=== PATIENT | male | born 1945 | race Caucasian/White ===

== ENCOUNTER → 2016-12-20 | Outpatient (CLI) | payer BC ==
[~2016-12-20] MED LIST: ATOR-24 PO; BENZ1CAP90 PO; DILT120C68 PO; ENAL10TA88 PO; FEBU40TA PO; FURO-85 PO; IPRA1AER2 INH; MOME100A INH; NSNN50 NAE; OMEP40CA PO; PSEU60TA80 PO; PSYL55.43 PO; VITAMIN D PO
[2016-12-20 12:11] LABS: BASO % 0.7 %; BASO ABS # 0.06 K/uL (0-0.2); COMPLETE YES; EOS % 0.5 %; HEMATOCRIT 52.6 % (42-52); IG% 0.2 %; LYMPH % 25.6 %; LYMPH ABS # 2.25 K/uL (1.2-3.4); MEAN CELL VOLUME 85.7 fL (80-100); MEAN CORPUSCULAR HEMOGLOBIN 27.9 pg (25-34); MEAN CORPUSCULAR HGB CONC 32.5 g/dl (32-36); MEAN PLATELET VOLUME 10.1 fL (7.4-10.4); MONO % 8.4 %; NEUT % 64.6 %; PLATELET COUNT 195 K/uL (130-400); RED BLOOD COUNT 6.14 M/uL (4.7-6.1); WHITE BLOOD COUNT 8.79 K/uL (4.8-10.8)
[2016-12-20 13:16] LABS: ESTIMATED AVERAGE GLUCOSE 134 mg/dl; HA1C FLAG Normal (Normal)
[2016-12-20 13:31] LABS: ALT/SGPT 16 U/L (12-78); AST/SGOT 16 U/L (15-37); BLOOD UREA NITROGEN 13 mg/dl (7-18); CALCIUM 8.8 mg/dl (8.5-10.1); CARBON DIOXIDE 34 mmol/L (21-32); CHLORIDE 94 mmol/L (98-107); CREATININE 0.97 mg/dl (0.60-1.40); GLUCOSE 100 mg/dl (70-99); POTASSIUM 4.4 mmol/L (3.5-5.1); SODIUM 132 mmol/L (136-145)
[2016-12-20 13:36] LABS: ALB/GLOB RATIO 0.8 (0.9-2); ALKALINE PHOSPHATASE 135 U/L (45-117); CHOLESTEROL 165 mg/dl (0-200); CHOLESTEROL/HDL RATIO 2.7; HDL CHOLESTEROL 62 mg/dl; LDL CHOLESTEROL CALCULATED 70 mg/dl; TRIGLYCERIDES 163 mg/dl (0-150); VERY LOW DENSITY LIPOPROT CALC 33 mg/dl
--- NOTE | 2016-12-27 13:20 | CODING QUERY MEDICAL NECESSITY ---
SUPPORTING DIAGNOSIS NEEDED A supporting diagnosis is required for the test/procedure performed on this patient in order for us to be reimbursed by the patient's insurance. Please provide a supporting diagnosis for the following test/procedure listed below next to the test name along with your signature. *If there is no additional diagnosis for this patient that would support the following test/procedure please document that below next to the test/procedure. Test(s)/Procedure(s) that require a supporting diagnosis: DOS 12/20 * PSA DIAGNOSIS: Provider Signature: Date: Thank you Janeen Rubin Health Information Management Once completed, please kindly fax back to [phone] For questions please call [phone]
== END | disposition home or self-care (01) ==
LOC: C.LABPVFM 10:22
PROVIDERS: ATTEND Internal Medicine
DX: Z00.00 Encounter for general adult medical examination without abnormal findings (principal); E78.5 Hyperlipidemia, unspecified; I10 Essential (primary) hypertension; R73.01 Impaired fasting glucose; Z12.5 Encounter for screening for malignant neoplasm of prostate

== ENCOUNTER → 2017-12-12 | Outpatient (CLI) | payer BC ==
[2017-12-12 13:11] LABS: BASO % 0.7 %; BASO ABS # 0.05 K/uL (0-0.2); EOS % 0.5 %; EOS ABS # 0.04 K/uL (0-0.5); HEMATOCRIT 51.6 % (42-52); HEMOGLOBIN 18.7 g/dL (14.0-18.0); IG# 0.01 K/uL (0.00-0.02); LYMPH % 23.4 %; LYMPH ABS # 1.78 K/uL (1.2-3.4); MEAN CELL VOLUME 97.5 fL (80-100); MEAN CORPUSCULAR HEMOGLOBIN 35.3 pg (25-34); MEAN CORPUSCULAR HGB CONC 36.2 g/dl (32-36); MEAN PLATELET VOLUME 10.5 fL (7.4-10.4); MONO % 7.1 %; MONO ABS # 0.54 K/uL (0.11-0.59); NEUT % 68.2 %; NEUT ABS # 5.18 K/uL (1.4-6.5); PLATELET COUNT 143 K/uL (130-400); RED CELL DISTRIBUTION WIDTH CV 15.7 % (11.5-14.5); RED CELL DISTRIBUTION WIDTH SD 56.3 fL (36.4-46.3)
[2017-12-12 13:58] LABS: HEMOGLOBIN A1C 5.7 % (4.5-5.6)
[2017-12-12 14:34] LABS: ALBUMIN 3.7 gm/dl (3.4-5.0); ALT/SGPT 21 U/L (12-78); AST/SGOT 21 U/L (15-37); BLOOD UREA NITROGEN 8 mg/dl (7-18); CALCIUM 9.4 mg/dl (8.5-10.1); CARBON DIOXIDE 33 mmol/L (21-32); CREATININE 0.93 mg/dl (0.60-1.40); GLUCOSE 97 mg/dl (70-99); POTASSIUM 4.2 mmol/L (3.5-5.1); SODIUM 134 mmol/L (136-145)
[2017-12-12 14:37] LABS: ALKALINE PHOSPHATASE 122 U/L (45-117); CHOLESTEROL 194 mg/dl (0-200); LDL CHOLESTEROL CALCULATED 82 mg/dl; TOTAL PROTEIN 8.3 gm/dl (6.4-8.2)
== END | disposition home or self-care (01) ==
LOC: C.LABPVFM 10:04
PROVIDERS: ATTEND Internal Medicine
DX: J44.9 Chronic obstructive pulmonary disease, unspecified (principal); D75.1 Secondary polycythemia; M48.061 Spinal stenosis, lumbar region without neurogenic claudication; I73.9 Peripheral vascular disease, unspecified; R73.03 Prediabetes; I10 Essential (primary) hypertension; E78.5 Hyperlipidemia, unspecified

== ENCOUNTER 2018-09-04 10:34 | Inpatient (IN) ==
[2018-09-04] MEDS ORDERED: ALBUT/IPRATROP 3MG/0.5MG NEB 3 ML VIAL INH STA (10:49)
[2018-09-04] MEDS ORDERED: methylPREDNISolone 125 MG/2 ML VIAL IV STA (10:51)
[2018-09-04 11:07] LABS: Basophils # (auto) 0.03 K/uL (0-0.2); Basophils % (auto) 0.3 %; Eosinophils # (auto) 0.04 K/uL (0-0.5); Eosinophils % (auto) 0.3 %; Hematocrit (blood only) 43.4 % (42-52); Hemoglobin 14.1 g/dL (14.0-18.0); Immature Granulocytes # (auto) 0.02 K/uL (0.00-0.02); Immature Granulocytes % (auto) 0.2 %; Lymphocytes # (auto) 0.92 K/uL (1.2-3.4); Lymphocytes % (auto) 7.9 %; Mean Corpuscular Hgb Conc 32.5 g/dL (32-36); Mean Platelet Volume 9.7 fL (7.4-10.4); Monocytes % (auto) 7.8 %; Neutrophils # (auto) 9.68 K/uL (1.4-6.5); Neutrophils % (auto) 83.5 %; Platelet Count 248 K/uL (130-400); RDW Coefficient of Variation 14.5 % (11.5-14.5); RDW Standard Deviation 48.7 fL (36.4-46.3); Red Blood Count 4.77 M/uL (4.7-6.1); White Blood Count 11.59 K/uL (4.8-10.8)
--- NOTE | 2018-09-04 11:18 | Emergency Department Note ---
Entered by Josefa Driver acting as a scribe for ED Provider Note CHIEF COMPLAINT: Shortness of breath HISTORY OF PRESENT ILLNESS: The patient is a 73 year old male who presents to the Emergency Room with complaints of persistent shortness of breath beginning 3 days prior to arrival. The patient states that he is nauseous, and states that he feels tightness in his chest. The patient states that he is on oxygen at home because there was something found on his right lung. Pt denies LOC, headache, fevers, chills, diaphoresis, visual changes, neck pain , vomiting, abdominal pain, back pain, melena, hematochezia, urinary symptoms, numbness, weakness, lymphadenopathy, rash, or other complaints. REVIEW OF SYSTEMS: See HPI for pertinent positives and negatives. A total of ten systems were reviewed and were otherwise negative. PMHx/PSHx: Hypertension COPD SOCIAL HISTORY: Patient lives at home. PHYSICAL EXAM: GENERAL: Awake, alert, well-appearing, in no distress HENT: Normocephalic, atraumatic. Oropharynx unremarkable. EYES: Normal conjunctiva. Sclera non-icteric. NECK: Supple. No nuchal rigidity. FROM. No masses. RESPIRATORY: Expiratory wheezes. Increased work of breathing. No rales. CARDIAC: Normal rate. Normal rhythm. No murmurs. No rubs. Extremities warm and well perfused. Pulses equal. No JVD. GI: Soft, non-distended. No tenderness to palpation. No rebound or guarding. No masses. RECTAL: Deferred. MUSCULOSKELETAL: Atraumatic. Chest examination reveals no tenderness. The back is symmetrical on inspection without obvious abnormality. There is no CVA tenderness to palpation. No joint edema. LOWER EXTREMITIES: Calves are equal size bilaterally and non-tender. No edema. No discoloration. NEURO: Normal sensorium. No sensory or motor deficits noted. SKIN: No rash or jaundice noted. Biopsy site over the right posterior ribs healed without signs of infection. EMERGENCY DEPARTMENT COURSE: 1049: Past medical records reviewed. The patient was evaluated in room C9, and a complete history and physical examination were performed. 1227: I checked on the patient and updated him on the results. The patient states that he feels the same. 1238: I discussed the case with Dr. Ureña[facility] who will further evaluate the patient. MEDICAL DECISION MAKING: Prior records/ancillary studies reviewed. The patient had a recent biopsy in the right chest. Triage Nursing notes reviewed and agree them. Additional history obtained from the family. The patient's history was concerning for shortness of breath. Differential diagnosis: Etiologies such as pneumonia, COPD, reactive airway disease, CHF, cardiac ischemia, pulmonary embolism, pneumothorax, musculoskeletal, infections, gastrointestinal, as well as others were entertained. Physical examination: As above. Wheezing. Diminished breath sounds. ER treatment provided: DuoNeb Solu-Medrol Supplemental oxygen On reassessment the patient felt better. Diagnostic interpretation by me: The electrocardiogram was negative for pathologic change. The labs revealed a slight leukocytosis on CBC but improved from prior. Troponin negative. LFTs and chemistry panel were unremarkable except for mild hyponatremia. Imaging studies: Chest x-ray revealed significant right-sided pleural effusion. Consultation: A consultation was placed with the hospitalist. The case was discussed and diagnostics were reviewed. The patient was evaluated in the ER for further treatment. IMPRESSION: Shortness of breath Wheezing Right pleural effusion PLAN: Admit. The scribe's documentation has been prepared under my direction and personally reviewed by me in its entirety. I confirm that the note above accurately reflects all work, treatment, procedures, and medical decision making performed by me. Impression & Plan Shortness of breath, Pleural effusion, right, Wheezing Past Med/Surg History Medical History BPH (benign prostatic hyperplasia) Jqshphs-Gkpvx-Ekgqm disease GERD (gastroesophageal reflux disease) Hypertension COPD (chronic obstructive pulmonary disease) (Chronic) Surgical History S/P foot surgery S/P thoracentesis Social History marital status: Current Living Situation: Spouse Other Information That Helps Us Care for You: No Feels Safe at Home: Yes Safety Concerns: Feels Safe At This Time Smoking Status: Current every day smoker Tobacco Type: cigarettes Cigarettes per Day: 30+ Do You Dip or Chew Tobacco: Yes Second Hand Exposure: No Tobacco Cessation Education Requested by Patient: No Hx Alcohol Use: Yes Alcohol type: hard liquor Alcohol Intake Frequency: 3 or more drinks per day Hx Substance Use: No Beliefs That Will Affect Care: None Preferred Language: Ecuadorean Communication Ability: Effective Developer Advocate Required: No Results & Data Vital Signs Vital Signs - 24 hr 09/04/18 10:37 09/04/18 11:08 09/04/18 11:40 Temperature 37.1 C Temperature Source Oral Sepsis Recent Fever Within 48 Hours No Sepsis New/Unexplained Change in Mental Status No Sepsis Action Taken by Nursing No Action Required Pulse Rate 88 Pulse Rate [Apical] 87 Pulse Rate [Right Brachial] Pulse Rhythm [Right Brachial] Pulse Strength [Right Brachial] Respiratory Rate 24 20 Respiratory Effort / Characteristics Respiratory Depth Normal Respiratory Pattern Blood Pressure 154/74 H Blood Pressure [Right Arm] 141/87 H Blood Pressure Mean 100 Blood Pressure Mean [Right Arm] 105 Blood Pressure Position [Right Arm] Sitting Pulse Oximetry 89 L 98 98 Oxygen Delivery Method Room Air Nasal Cannula Nasal Cannula Oxygen Flow Rate 2 2 09/04/18 12:40 09/04/18 13:02 09/04/18 14:34 Temperature 36.8 C Temperature Source Oral Sepsis Recent Fever Within 48 Hours Sepsis New/Unexplained Change in Mental Status Sepsis Action Taken by Nursing Pulse Rate Pulse Rate [Apical] 87 78 Pulse Rate [Right Brachial] Pulse Rhythm [Right Brachial] Pulse Strength [Right Brachial] Respiratory Rate 20 Respiratory Effort / Characteristics Spontaneous SOB on Exertion Respiratory Depth Normal Respiratory Pattern Tachypnea Blood Pressure Blood Pressure [Right Arm] 147/74 H 173/84 H Blood Pressure Mean Blood Pressure Mean [Right Arm] 98 113 Blood Pressure Position [Right Arm] Sitting Lying Pulse Oximetry 98 94 Oxygen Delivery Method Nasal Cannula Nasal Cannula Nasal Cannula Oxygen Flow Rate 2 2 3 09/04/18 14:37 09/04/18 14:40 09/04/18 15:18 Temperature 36.8 C Temperature Source Oral Sepsis Recent Fever Within 48 Hours Sepsis New/Unexplained Change in Mental Status Sepsis Action Taken by Nursing Pulse Rate Pulse Rate [Apical] Pulse Rate [Right Brachial] 78 78 Pulse Rhythm [Right Brachial] Regular Pulse Strength [Right Brachial] Normal Respiratory Rate 18 18 Respiratory Effort / Characteristics Non-Labored Spontaneous Non-Labored Spontaneous Non-Labored Spontaneous Respiratory Depth Deep Normal Respiratory Pattern Regular Regular Blood Pressure Blood Pressure [Right Arm] 173/84 H Blood Pressure Mean Blood Pressure Mean [Right Arm] 113 Blood Pressure Position [Right Arm] Lying Pulse Oximetry 94 94 Oxygen Delivery Method Nasal Cannula Nasal Cannula Nasal Cannula Oxygen Flow Rate 2 2 2 09/04/18 15:40 Temperature Temperature Source Sepsis Recent Fever Within 48 Hours Sepsis New/Unexplained Change in Mental Status Sepsis Action Taken by Nursing Pulse Rate Pulse Rate [Apical] Pulse Rate [Right Brachial] Pulse Rhythm [Right Brachial] Pulse Strength [Right Brachial] Respiratory Rate Respiratory Effort / Characteristics Non-Labored Spontaneous Respiratory Depth Normal Respiratory Pattern Regular Blood Pressure Blood Pressure [Right Arm] Blood Pressure Mean Blood Pressure Mean [Right Arm] Blood Pressure Position [Right Arm] Pulse Oximetry Oxygen Delivery Method Nasal Cannula Oxygen Flow Rate 2 Home Medications Current Medication List: was personally reviewed by me Laboratory Data Attestation: I reviewed the patient's lab results. Result diagrams: 09/04/18 10:55 09/04/18 10:55 Lab Results 09/04/18 09/04/18 09/04/18 Range/Units 10:55 10:55 10:55 WBC 11.59 H (4.8-10.8) K/uL RBC 4.77 (4.7-6.1) M/uL Hgb 14.1 (14.0-18.0) g/dL Hct 43.4 (42-52) % MCV 91.0 (80-100) fL MCH 29.6 (25-34) pg MCHC 32.5 (32-36) g/dL RDW Std Deviation 48.7 H (36.4-46.3) fL RDW Coeff of Tuan 14.5 (11.5-14.5) % Plt Count 248 (130-400) K/uL MPV 9.7 (7.4-10.4) fL Immature Gran % (Auto) 0.2 % Neut % (Auto) 83.5 % Lymph % (Auto) 7.9 % [place] % (Auto) 7.8 % Eos % (Auto) 0.3 % Baso % (Auto) 0.3 % Immature Gran # (Auto) 0.02 (0.00-0.02) K/uL Neut # (Auto) 9.68 H (1.4-6.5) K/uL Lymph # (Auto) 0.92 L (1.2-3.4) K/uL [place] # (Auto) 0.90 H (0.11-0.59) K/uL Eos # (Auto) 0.04 (0-0.5) K/uL Baso # (Auto) 0.03 (0-0.2) K/uL PT 10.9 (9.0-12.0) Seconds INR 1.1 (0.9-1.1) APTT 32.2 H (21.0-31.0) Seconds PTT Ratio 1.2 Sodium 130 L (136-145) mmol/L Potassium 4.9 (3.5-5.1) mmol/L Chloride 92 L (98-107) mmol/L Carbon Dioxide 36 H (21-32) mmol/L Anion Gap 2.0 L (3-11) BUN 8 (7-18) mg/dl Creatinine 0.66 (0.6-1.4) mg/dl Est Cr Clr Drug Dosing Not Reportable Est GFR ( Amer) 109.6 Est GFR (Non-Af Amer) 94.6 BUN/Creatinine Ratio 11.7 (10-20) Glucose 101 H (70-99) mg/dl Calcium 9.4 (8.5-10.1) mg/dl Magnesium 2.1 (1.8-2.4) mg/dl Total Bilirubin 0.5 (0.2-1) mg/dl AST 38 H (15-37) U/L ALT 64 (12-78) U/L Alkaline Phosphatase 194 H (45-117) U/L Troponin I < 0.015 (0-0.045) ng/ml Total Protein 8.0 (6.4-8.2) gm/dl Albumin 2.3 L (3.4-5.0) gm/dl Globulin 5.7 H (2.5-4.0) gm/dl Albumin/Globulin Ratio 0.4 L (0.9-2) Urine Color Urine Appearance (Clear) Urine pH (4.5-7.5) Ur Specific [place] (1.000-1.030) Urine Protein (Negative) Urine Glucose (UA) (Negative) Urine Ketones (Negative) Urine Blood (Negative) Urine Nitrite (Negative) Urine Bilirubin (Negative) Urine Urobilinogen (Negative) Ur Leukocyte Esterase (Negative) Influenza Type A (PCR) (Neg) Influenza Type B (PCR) (Neg) 09/04/18 09/04/18 Range/Units 11:10 11:35 WBC (4.8-10.8) K/uL RBC (4.7-6.1) M/uL Hgb (14.0-18.0) g/dL Hct (42-52) % MCV (80-100) fL MCH (25-34) pg MCHC (32-36) g/dL RDW Std Deviation (36.4-46.3) fL RDW Coeff of Tuan (11.5-14.5) % Plt Count (130-400) K/uL MPV (7.4-10.4) fL Immature Gran % (Auto) % Neut % (Auto) % Lymph % (Auto) % [place] % (Auto) % Eos % (Auto) % Baso % (Auto) % Immature Gran # (Auto) (0.00-0.02) K/uL Neut # (Auto) (1.4-6.5) K/uL Lymph # (Auto) (1.2-3.4) K/uL [place] # (Auto) (0.11-0.59) K/uL Eos # (Auto) (0-0.5) K/uL Baso # (Auto) (0-0.2) K/uL PT (9.0-12.0) Seconds INR (0.9-1.1) APTT (21.0-31.0) Seconds PTT Ratio Sodium (136-145) mmol/L Potassium (3.5-5.1) mmol/L Chloride (98-107) mmol/L Carbon Dioxide (21-32) mmol/L Anion Gap (3-11) BUN (7-18) mg/dl Creatinine (0.6-1.4) mg/dl Est Cr Clr Drug Dosing Est GFR ( Amer) Est GFR (Non-Af Amer) BUN/Creatinine Ratio (10-20) Glucose (70-99) mg/dl Calcium (8.5-10.1) mg/dl Magnesium (1.8-2.4) mg/dl Total Bilirubin (0.2-1) mg/dl AST (15-37) U/L ALT (12-78) U/L Alkaline Phosphatase (45-117) U/L Troponin I (0-0.045) ng/ml Total Protein (6.4-8.2) gm/dl Albumin (3.4-5.0) gm/dl Globulin (2.5-4.0) gm/dl Albumin/Globulin Ratio (0.9-2) Urine Color Yellow Urine Appearance Clear (Clear) Urine pH >= 9.0 H (4.5-7.5) Ur Specific [place] 1.011 (1.000-1.030) Urine Protein Negative (Negative) Urine Glucose (UA) Negative (Negative) Urine Ketones Negative (Negative) Urine Blood Negative (Negative) Urine Nitrite Negative (Negative) Urine Bilirubin Negative (Negative) Urine Urobilinogen Negative (Negative) Ur Leukocyte Esterase Negative (Negative) Influenza Type A (PCR) Neg for Influ A (Neg) Influenza Type B (PCR) Neg for Influ B (Neg) Administered Medications Albuterol (Duoneb) 3 ml NEB Q4R [facility] Stop: 10/04/18 15:59 Last Admin: 09/04/18 16:16 Dose: 3 ml Atorvastatin Calcium (Lipitor) 40 mg PO DAILY [facility] Stop: 10/04/18 15:59 Last Admin: 09/04/18 16:35 Dose: 40 mg Diltiazem HCl (Cardizem Cd) 120 mg PO DAILY [facility] Stop: 10/04/18 15:59 Last Admin: 09/04/18 16:35 Dose: 120 mg Enalapril Maleate (Vasotec) 40 mg PO DAILY [facility] Stop: 10/04/18 15:59 Last Admin: 09/04/18 16:37 Dose: 40 mg Febuxostat (Uloric) 40 mg PO DAILY [facility] Stop: 10/04/18 15:59 Last Admin: 09/04/18 16:37 Dose: 40 mg Finasteride (Proscar) 5 mg PO DAILY [facility] Stop: 10/04/18 15:59 Last Admin: 09/04/18 16:36 Dose: 5 mg Fluticasone Propionate (Flonase) 2 sprays NA DAILY [facility] Stop: 10/04/18 15:59 Last Admin: 09/04/18 16:34 Dose: 2 sprays Furosemide (Lasix) 20 mg PO QAM [facility] Stop: 10/04/18 15:59 Last Admin: 09/04/18 16:35 Dose: 20 mg Methylprednisolone 40 mg/ (Syringe) 0.64 mls @ 1.5 mls/min IV Q6H [facility] Stop: 10/04/18 17:59 Last Admin: 09/04/18 18:34 Dose: 1.5 mls/min Menthol (Nice) 1 lilibeth BUCCAL PRN PRN PRN Reason: Sore Throat Stop: 10/04/18 15:44 Last Admin: 09/04/18 16:33 Dose: 1 lilibeht Miscellaneous (Order Awaiting Action) 1 ea N/A QS [facility] Stop: 10/04/18 15:59 Last Admin: 09/04/18 16:36 Dose: Not Given Pantoprazole Sodium (Protonix) 40 mg PO DAILY [facility] Stop: 10/04/18 15:59 Last Admin: 09/04/18 16:36 Dose: 40 mg Vitamin D (Vitamin D3) 2,000 units PO DAILY [facility] Stop: 10/04/18 15:59 Last Admin: 09/04/18 16:37 Dose: 2,000 units Discontinued Medications Albuterol (Duoneb) 3 ml INH NOW STA Stop: 09/04/18 10:50 Last Admin: 09/04/18 11:02 Dose: 3 ml Methylprednisolone (Solumedrol) 125 mg IV NOW STA Stop: 09/04/18 10:52 Last Admin: 09/04/18 11:02 Dose: 125 mg Imaging Data Radiologist's Impression: Radiology results as stated below per my review and the radiologist's interpretation: XR chest 1V portable CLINICAL HISTORY: Dyspnea COMPARISON STUDY: Chest CT August 14, 2018 and chest radiograph August 17, 2018. FINDINGS: A large right pleural effusion has significantly increased in size since previous exam. The cavitary mass-like opacity within the right lung shown on prior exams is obscured. There is no pneumothorax. There is no evidence for pulmonary edema. IMPRESSION: 1. Significant increase in size of a large right pleural effusion since exam of August 17, 2018. 2. Previously described cavitary right lung mass-like opacity on prior CTs is obscured due to the pleural effusion. Electronically signed by: Wisam Munoz M.D. 09/04/2018 11:18 AM ECG Data Attestation: I personally reviewed and interpreted this ECG as follows: Indication: SOB/dyspnea Rate (beats per minute): 91 Rhythm: sinus rhythm Findings: no PAC, no ST depression and no ST elevation Blood Pressure Blood Pressure Findings: Elevated blood pressure Blood Pressure Disposition: further management by hospitalist Discharge Plan Visit Data *Final* Discharge Date/Time: 09/04/18 14:26 Chief Complaint: Illness Stated Complaint: SHAKINESS,NOT FEELING WELL ED Provider: Todd Lawler Discharge Problem: Shortness of breath, Pleural effusion, right, Wheezing Patient Disposition: Admitted As Inpatient Discharge Instructions Interventions: ED Discharge Assessment Last Done: 09/04/18 14:26 The scribe's documentation has been prepared under my direction and personally reviewed by me in its entirety. I confirm that the note above accurately reflects all work, treatment, procedures, and medical decision making performed by me.
[2018-09-04 11:20] LABS: INR 1.1 (0.9-1.1); Partial Thromboplastin Ratio 1.2; Partial Thromboplastin Time 32.2 Seconds (21.0-31.0); Prothrombin Time 10.9 Seconds (9.0-12.0)
[2018-09-04 11:26] LABS: Alanine Aminotransferase 64 U/L (12-78); Albumin Level 2.3 gm/dl (3.4-5.0); Aspartate Aminotransferase 38 U/L (15-37); BUN Creatinine Ratio 11.7 (10-20); Blood Urea Nitrogen 8 mg/dl (7-18); Calcium 9.4 mg/dl (8.5-10.1); Carbon Dioxide 36 mmol/L (21-32); Chloride 92 mmol/L (98-107); Est GFR (African American) 109.6; Est GFR (Non-African American) 94.6; Glucose 101 mg/dl (70-99); Magnesium 2.1 mg/dl (1.8-2.4); Potassium 4.9 mmol/L (3.5-5.1); Sodium 130 mmol/L (136-145)
[2018-09-04 11:31] LABS: Albumin Globulin Ratio 0.4 (0.9-2); Alkaline Phosphatase 194 U/L (45-117); Bilirubin,Total 0.5 mg/dl (0.2-1); Globulin 5.7 gm/dl (2.5-4.0); Troponin I < 0.015 ng/ml (0-0.045)
[2018-09-04 11:49] LABS: Appearance Urine Clear (Clear); Bilirubin Urine Negative (Negative); Color Urine Yellow; Glucose Urine UA Negative (Negative); Ketones Urine Negative (Negative); Leukocyte Esterase Urine Negative (Negative); Nitrite Urine Negative (Negative); Protein Urine Negative (Negative); Specific Gravity Urine 1.011 (1.000-1.030); Urobilinogen Urine Negative (Negative); pH Urine >= 9.0 (4.5-7.5)
[2018-09-04 11:53] LABS: Influenza A virus by PCR Neg for Influ A (Neg); Influenza B virus by PCR Neg for Influ B (Neg)
--- NOTE | 2018-09-04 14:13 | History & Physical Report ---
Date of Service September 04, 2018 Assessment & Plan (1) Shortness of breath: Progressive since hospital discharge. Patient with large right sided pleural effusion. Presently with adequate oxygenation on nasal cannula. No evidence of respiratory distress. Concern for underlying pulmonary malignancy with malignant effusion. Patient most likely with COPD (heavy smoking history, awaiting formal PFTs) and diffuse wheezing. * Will admit to medical floor * Continuous pulse oximetry * Consult thoracic surgery, patient is known to Dr. Cohen - patient will most likely need repeat thoracentesis vs VATs for diagnostic/therepeutic purpose * NPO after midnight for possible procedure * (2) Pleural effusion, right: As above. Most likely malignant. Patient does not seem to have active infection. Does not appear to be in CHF. * Thoracic surgery consultation - appreciate assistance with this case * (3) COPD (chronic obstructive pulmonary disease): Most likely underlying COPD, extensive smoking history, diffuse wheezing, HCO3 on serum chemistry mildly elevated at 36 ?chronic retention? Patient received Solumedrol 125mg IV in ER * Formal PFTs to be obtained as outpatient * DuoNebs q 4 hours * Albuterol PRN * Solumedrol 40mg IV q 6 * Supplemental O2 as needed to maintain saturation 88 - 92% * Continue Mometasone/Formoterol inhaled * Smoking cessation counseling * Nicotine patch daily * (4) BPH (benign prostatic hyperplasia): Patient with urinary frequency and urgency as well as some retention * Buenrostro to be placed at his request * Continue Flomax, Finasteride * (5) Hypertension: Blood pressure mildly elevated 147/74 * Continue Enalapril and Diltiazem * Continue to monitor * (6) Hyperlipidemia: Chronic * Continue Atorvastatin * (7) GERD (gastroesophageal reflux disease): Chronic * Continue Omeprazole F/E/N - Heplock. Monitor electrolytes and replete as needed. Regular diet as tolerated. NPO after midnight for possible procedure in AM. Patient was heavy drinker in the past but has not had an alcoholic beverage since his hospital admisison in early August - no withdrawal symptoms, patient is out of the window for EtOH withdrawal. Wound care on bilateral LEs as needed. Ppx - Lovenox. Omeprazole Code - DNR per discussion with patient Dispo - Admit to medical floor, continuous pulse oximetry History of Present Illness Chief Complaint: "not feeling well" Primary Care Provider: Des Salas MD Mr. Hodges is a 73yo male presenting today with progressive JOSHI/SOB, cough and malaise. Patient was recently admitted 08/14/18 - 08/21/18 with acute hypoxic/ hypercapnic respiratory failure, weakness/fatigue/cough as well as abnormal LFTs and GARETH. During that admission he was found to have an 8.4 cm cavitary lesion in the posterior segment of the RUL and a large right sided pleural effusion. Patient had a thoracentesis performed on 08/14/[address] Cohen in which 850mL of clear yellow fluid was removed. Fluid was transudative. He had CT guided aspiration with placement of pigtail drain perfomed by Dr. 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 He was treated with IV Vanc/Levaquin/Imipenem x 7 days and discharged home on Augmentin 875/125mg BID x 14 days. Due to the nature of the pulmonary lesion as well as the patient 's extensive smoking history there is high concern for malignancy. Insufficient tissue sample for formal diagnosis of malignancy at this time but atypical squamous cells observed in the sample. Additional biopsy was recommended during the last hospital stay, however, patient did not wish to undergo additional procedure and opted for discharge home. Patient was discharged home with home O2 and scheduled for PET scan (09/11/18) and formal PFTs. Also scheduled with Urology followup for BPH and followup with his PCP and Dr. Cohen. He presents today complaining of progressive JOSHI, patient becomes short of breath with ambulating in his home. Also with cough productive of clear sputum , wheezing, nausea, abdominal discomfort, loose stools and "not feeling right". He denies fevers, chills, sweats, headache, visual changes, chest pain, palpitations. He has BPH and has a very difficult time with urinary frequency and retention. ER Course: Albuterol. Solumedrol 125mg IV Allergies Allergy/AdvReac Type Severity Reaction Status Date / Time amlodipine AdvReac edema Unverified 09/04/18 11:29 doxycycline AdvReac Nausea and Unverified 09/04/18 11:29 abdominal pain hydrochlorothiazide AdvReac hyponatremi Unverified 09/04/18 11:29 a Home Medications Home Medications Medication Instructions Recorded Confirmed Type atorvastatin 40 mg PO DAILY 08/14/18 09/04/18 History cholecalciferol (vitamin D3) 2,000 unit PO DAILY 08/14/18 09/04/18 History [Vitamin D3] diltiazem HCl 120 mg PO DAILY 08/14/18 09/04/18 History enalapril maleate 40 mg PO DAILY 08/14/18 09/04/18 History febuxostat 40 mg PO DAILY 08/14/18 09/04/18 History furosemide 20 mg PO QAM 08/14/18 09/04/18 History furosemide 40 mg PO UD 08/14/18 09/04/18 History gabapentin 300 mg PO HS 08/14/18 09/04/18 History guaifenesin [Mucinex] 1,200 mg PO HS 08/14/18 09/04/18 History ipratropium-albuterol 1 puff INHALATION QID 08/14/18 09/04/18 History mometasone 2 spray INTRANASAL DAILY 08/14/18 09/04/18 History mometasone-formoterol 2 puff INHALATION BID 08/14/18 09/04/18 History omeprazole 40 mg PO DAILY 08/14/18 09/04/18 History psyllium husk [Metamucil] 1 tbsp PO DAILY 08/14/18 09/04/18 History tamsulosin 0.4 mg PO HS 08/14/18 09/04/18 History finasteride 5 mg PO DAILY #30 tab 08/21/18 09/04/18 Rx nicotine [Nicoderm CQ] 21 mg TRANSDERMAL QAM 30 Days #30 08/21/18 09/04/18 Rx ea tamsulosin 0.8 mg PO HS #30 cap 08/21/18 09/04/18 Rx Past Med/Surg History Medical History BPH (benign prostatic hyperplasia) Gizrruy-Xzzyo-Lpsso disease GERD (gastroesophageal reflux disease) Hypertension COPD (chronic obstructive pulmonary disease) (Chronic) Surgical History S/P foot surgery S/P thoracentesis Social History marital status: Current Living Situation: Spouse Other Information That Helps Us Care for You: No Feels Safe at Home: Yes Safety Concerns: Feels Safe At This Time Smoking Status: Current every day smoker Tobacco Type: cigarettes Cigarettes per Day: 30+ Do You Dip or Chew Tobacco: Yes Second Hand Exposure: No Tobacco Cessation Education Requested by Patient: No Hx Alcohol Use: Yes Alcohol type: hard liquor Alcohol Intake Frequency: 3 or more drinks per day Hx Substance Use: No Beliefs That Will Affect Care: None Preferred Language: Icelandic Communication Ability: Effective Cleaner And Presser Required: No Review of Systems All systems reviewed & are unremarkable except as noted in HPI & below Physical Exam 2 Vital Signs (Past 24 Hours): Last Vital Signs Temp 37.1 C 09/04/18 10:37 Pulse 87 09/04/18 13:02 Resp 20 09/04/18 11:40 BP 147/74 H 09/04/18 13:02 Pulse Ox 98 09/04/18 13:02 Physical Exam: General: patient sitting at edge of bed, NAD,chronically ill in appearance, AA&O x 4, slightly hard of hearing Skin: warm, dry, intact, redness on fingers with scattered ecchymoses on forearms, lesion on clay with dressing in place HEENT: NC/AT, PERRL, EOMI, anicteric sclera, conjunctiva without injection, external ear normal to inspection and nontender, nares patent, moist mucus membranes, dentition intact, no oropharyngeal lesions, neck supple, trachea midline, no LAD, no thyromegaly, no JVD Heart: +S1/S2, regular, 3/6 GERTRUDE at 2nd R ICS with radiation across the precordium, bruit in left carotid Lungs: markedly diminished breath sounds in right lung, dullness to percussion , diffuse inspiratory and expiratory wheezing appreciated at right apex and in left lung Abd: +BS, soft, NT/ND, no masses/organomegaly/ascites Ext: warm, 2+ pulses in UE/LE bilaterally, bilateral foot deformity Neuro: nonfocal, patient AA&O x 4, speech intact, no facial droop, moving all extremities on command with equal strength 5/5 Results & Data Laboratory Results Lab Results 09/04/18 09/04/18 09/04/18 Range/Units 10:55 10:55 10:55 WBC 11.59 H (4.8-10.8) K/uL RBC 4.77 (4.7-6.1) M/uL Hgb 14.1 (14.0-18.0) g/dL Hct 43.4 (42-52) % MCV 91.0 (80-100) fL MCH 29.6 (25-34) pg MCHC 32.5 (32-36) g/dL RDW Std Deviation 48.7 H (36.4-46.3) fL RDW Coeff of Tuan 14.5 (11.5-14.5) % Plt Count 248 (130-400) K/uL MPV 9.7 (7.4-10.4) fL Immature Gran % (Auto) 0.2 % Neut % (Auto) 83.5 % Lymph % (Auto) 7.9 % Coles % (Auto) 7.8 % Eos % (Auto) 0.3 % Baso % (Auto) 0.3 % Immature Gran # (Auto) 0.02 (0.00-0.02) K/uL Neut # (Auto) 9.68 H (1.4-6.5) K/uL Lymph # (Auto) 0.92 L (1.2-3.4) K/uL Coles # (Auto) 0.90 H (0.11-0.59) K/uL Eos # (Auto) 0.04 (0-0.5) K/uL Baso # (Auto) 0.03 (0-0.2) K/uL PT 10.9 (9.0-12.0) Seconds INR 1.1 (0.9-1.1) APTT 32.2 H (21.0-31.0) Seconds PTT Ratio 1.2 Sodium 130 L (136-145) mmol/L Potassium 4.9 (3.5-5.1) mmol/L Chloride 92 L (98-107) mmol/L Carbon Dioxide 36 H (21-32) mmol/L Anion Gap 2.0 L (3-11) BUN 8 (7-18) mg/dl Creatinine 0.66 (0.6-1.4) mg/dl Est Cr Clr Drug Dosing Not Reportable Est GFR ( Amer) 109.6 Est GFR (Non-Af Amer) 94.6 BUN/Creatinine Ratio 11.7 (10-20) Glucose 101 H (70-99) mg/dl Calcium 9.4 (8.5-10.1) mg/dl Magnesium 2.1 (1.8-2.4) mg/dl Total Bilirubin 0.5 (0.2-1) mg/dl AST 38 H (15-37) U/L ALT 64 (12-78) U/L Alkaline Phosphatase 194 H (45-117) U/L Troponin I < 0.015 (0-0.045) ng/ml Total Protein 8.0 (6.4-8.2) gm/dl Albumin 2.3 L (3.4-5.0) gm/dl Globulin 5.7 H (2.5-4.0) gm/dl Albumin/Globulin Ratio 0.4 L (0.9-2) Urine Color Urine Appearance (Clear) Urine pH (4.5-7.5) Ur Specific [place] (1.000-1.030) Urine Protein (Negative) Urine Glucose (UA) (Negative) Urine Ketones (Negative) Urine Blood (Negative) Urine Nitrite (Negative) Urine Bilirubin (Negative) Urine Urobilinogen (Negative) Ur Leukocyte Esterase (Negative) Influenza Type A (PCR) (Neg) Influenza Type B (PCR) (Neg) 09/04/18 09/04/18 Range/Units 11:10 11:35 WBC (4.8-10.8) K/uL RBC (4.7-6.1) M/uL Hgb (14.0-18.0) g/dL Hct (42-52) % MCV (80-100) fL MCH (25-34) pg MCHC (32-36) g/dL RDW Std Deviation (36.4-46.3) fL RDW Coeff of Tuan (11.5-14.5) % Plt Count (130-400) K/uL MPV (7.4-10.4) fL Immature Gran % (Auto) % Neut % (Auto) % Lymph % (Auto) % Coles % (Auto) % Eos % (Auto) % Baso % (Auto) % Immature Gran # (Auto) (0.00-0.02) K/uL Neut # (Auto) (1.4-6.5) K/uL Lymph # (Auto) (1.2-3.4) K/uL Coles # (Auto) (0.11-0.59) K/uL Eos # (Auto) (0-0.5) K/uL Baso # (Auto) (0-0.2) K/uL PT (9.0-12.0) Seconds INR (0.9-1.1) APTT (21.0-31.0) Seconds PTT Ratio Sodium (136-145) mmol/L Potassium (3.5-5.1) mmol/L Chloride (98-107) mmol/L Carbon Dioxide (21-32) mmol/L Anion Gap (3-11) BUN (7-18) mg/dl Creatinine (0.6-1.4) mg/dl Est Cr Clr Drug Dosing Est GFR ( Amer) Est GFR (Non-Af Amer) BUN/Creatinine Ratio (10-20) Glucose (70-99) mg/dl Calcium (8.5-10.1) mg/dl Magnesium (1.8-2.4) mg/dl Total Bilirubin (0.2-1) mg/dl AST (15-37) U/L ALT (12-78) U/L Alkaline Phosphatase (45-117) U/L Troponin I (0-0.045) ng/ml Total Protein (6.4-8.2) gm/dl Albumin (3.4-5.0) gm/dl Globulin (2.5-4.0) gm/dl Albumin/Globulin Ratio (0.9-2) Urine Color Yellow Urine Appearance Clear (Clear) Urine pH >= 9.0 H (4.5-7.5) Ur Specific [place] 1.011 (1.000-1.030) Urine Protein Negative (Negative) Urine Glucose (UA) Negative (Negative) Urine Ketones Negative (Negative) Urine Blood Negative (Negative) Urine Nitrite Negative (Negative) Urine Bilirubin Negative (Negative) Urine Urobilinogen Negative (Negative) Ur Leukocyte Esterase Negative (Negative) Influenza Type A (PCR) Neg for Influ A (Neg) Influenza Type B (PCR) Neg for Influ B (Neg) Diagnostic Findings XR chest 1V portable CLINICAL HISTORY: Dyspnea COMPARISON STUDY: Chest CT August 14, 2018 and chest radiograph August 17, 2018. FINDINGS: A large right pleural effusion has significantly increased in size since previous exam. The cavitary mass-like opacity within the right lung shown on prior exams is obscured. There is no pneumothorax. There is no evidence for pulmonary edema. IMPRESSION: 1. Significant increase in size of a large right pleural effusion since exam of August 17, 2018. 2. Previously described cavitary right lung mass-like opacity on prior CTs is obscured due to the pleural effusion. Electronically signed by: Wisam Munoz M.D. 09/04/2018 11:18 AM Dictated: 09/04/18 1114 Transcribed: 09/04/18 1114 ECG Additional Comments: SInus rhythnm at 91bpm, PACs present, EK=515, QRS=84, QTc= 410, no evidence of acute ischemia Code Status & VTE Plan Code Status DNR per discussion with patient VTE Prophylaxis Plan VTE Prophylaxis will be ordered: Yes Critical Care Time Critical Care Time: No _ (1) COPD (chronic obstructive pulmonary disease) COPD type: unspecified COPD Qualified Code(s): J44.9 - Chronic obstructive pulmonary disease, unspecified (2) BPH (benign prostatic hyperplasia) Lower urinary tract symptom presence: symptoms present Lower urinary tract symptom detail: urinary frequency Qualified Code(s): N40.1 - Benign prostatic hyperplasia with lower urinary tract symptoms; R35.0 - Frequency of micturition (3) Hypertension Hypertension type: essential hypertension Qualified Code(s): I10 - Essential (primary) hypertension (4) Hyperlipidemia Hyperlipidemia type: unspecified Qualified Code(s): E78.5 - Hyperlipidemia, unspecified (5) GERD (gastroesophageal reflux disease) Esophagitis presence: esophagitis presence not specified Qualified Code(s): K21.9 - Gastro-esophageal reflux disease without esophagitis
[2018-09-04] MEDS ORDERED: ACETAMINOPHEN 325 MG TAB PO PRN (14:34)
[2018-09-04] MEDS ORDERED: ONDANSETRON INJ 2 MG/ML 2 ML VIAL IV PRN (14:34)
[2018-09-04] MEDS ORDERED: ALBUTEROL 0.083% NEBU SOLN 3 ML VIAL NEB PRN (14:34)
[2018-09-04] MEDS ORDERED: COUGH DROP (SUGAR FREE) LOZ 24 LOZ/1 BOX BUCCAL PRN (15:45)
[2018-09-04] MEDS: ALBUT/IPRATROP 3MG/0.5MG NEB 3 ML VIAL NEB SCH ×3 (16:16→23:07)
[2018-09-04] MEDS: FLUTICASONE PROPIONATE NA SPR 16 GM BTL SCH (16:34)
[2018-09-04] MEDS: ATORVASTATIN 40 MG TAB PO SCH (16:35)
[2018-09-04] MEDS: dilTIAZem HCL 120 MG CAPCR PO SCH (16:35)
[2018-09-04] MEDS: FUROSEMIDE 20 MG TAB PO SCH (16:35)
[2018-09-04] MEDS: DULERA - ORDER AWAITING ACTION SCH (16:36)
[2018-09-04] MEDS: FINASTERIDE 5 MG TAB PO SCH (16:36)
[2018-09-04] MEDS: PANTOprazole 40 MG TAB PO SCH (16:36)
[2018-09-04] MEDS: ENALAPRIL MALEATE 10 MG TAB PO SCH (16:37)
[2018-09-04] MEDS: FEBUXOSTAT 40 MG TABLET PO SCH (16:37)
[2018-09-04] MEDS: CHOLECALCIFEROL 1,000 UNITS TAB PO SCH (16:37)
[2018-09-04] MEDS: methylPREDNISolone 40 MG in SYRINGE 0 ML IV SCH (18:34)
[2018-09-04] MEDS: guaiFENesin 600 MG TABCR PO SCH (21:17)
[2018-09-04] MEDS: GABAPENTIN 300 MG CAP PO SCH (21:17)
[2018-09-04] MEDS: TAMSULOSIN HCL 0.4 MG CAP PO SCH (21:17)
[2018-09-05] MEDS: methylPREDNISolone 40 MG in SYRINGE 0 ML IV SCH ×5 (00:14→23:40)
[2018-09-05] MEDS: DULERA - ORDER AWAITING ACTION SCH ×4 (01:13→23:38)
[2018-09-05] MEDS: ALBUT/IPRATROP 3MG/0.5MG NEB 3 ML VIAL NEB SCH ×6 (03:40→22:57)
[2018-09-05 06:07] LABS: Hematocrit (blood only) 40.3 % (42-52); Hemoglobin 13.3 g/dL (14.0-18.0); Immature Granulocytes # (auto) 0.03 K/uL (0.00-0.02); Immature Granulocytes % (auto) 0.3 %; Lymphocytes # (auto) 0.69 K/uL (1.2-3.4); Mean Corpuscular Volume 90.4 fL (80-100); Mean Platelet Volume 9.7 fL (7.4-10.4); Monocytes # (auto) 0.31 K/uL (0.11-0.59); Monocytes % (auto) 2.7 %; Neutrophils # (auto) 10.47 K/uL (1.4-6.5); Platelet Count 227 K/uL (130-400); RDW Coefficient of Variation 14.3 % (11.5-14.5); RDW Standard Deviation 47.1 fL (36.4-46.3); Red Blood Count 4.46 M/uL (4.7-6.1)
[2018-09-05 06:41] LABS: BUN Creatinine Ratio 18.6 (10-20); Calcium 9.2 mg/dl (8.5-10.1); Creatinine Clr Calc Pharmacy 110.4 ml/min; Est GFR (African American) 108.9; Potassium 4.2 mmol/L (3.5-5.1)
--- NOTE | 2018-09-05 07:39 | Post Operative Brief Note ---
Immediate Post Op Note v1 Date of Surgery September 05, 2018 Pre & Post Diagnosis Recurrent Right pleural effusion Procedure Ultrasound guided right thoracentesis Surgeon Samm Cohen MD, FACS [facility] ESPINOZA Estimated Blood Loss 0 Findings Consistent with Post-Op Diagnosis
--- NOTE | 2018-09-05 07:43 | XRay Report ---
XR chest 1V portable CLINICAL HISTORY: 73 years-old Male presenting with thoracentesis. TECHNIQUE: Portable upright AP view of the chest was obtained. COMPARISON: 09/04/2018. FINDINGS: Atherosclerosis of the aortic arch. Cardiac silhouette normal in size. Interval decrease in the moder ate to large right pleural effusion with slight improved aeration of a portion of the right midlung. There is significant persistent under aeration of the mid to lower right lung due to the effusion. No pneumothorax. Known underlying right lung mass is obscured. Lung and pleural space clear. Osseous st ructures normal. Upper abdomen normal. IMPRESSION: 1. Slight interval decrease in size of the moderate to large right pleural effusion with slight impr darlene aeration of the right midlung. No known underlying right lung mass not well depicted. No pneumot horax. Electronically signed by: Des Hayes M.D. 09/05/2018 7:42 AM
[2018-09-05] MEDS ORDERED: PSYLLIUM HUSK PO SCH (09:00)
[2018-09-05] MEDS: FLUTICASONE PROPIONATE NA SPR 16 GM BTL SCH (09:22)
[2018-09-05] MEDS: dilTIAZem HCL 120 MG CAPCR PO SCH (09:23)
[2018-09-05] MEDS: FUROSEMIDE 20 MG TAB PO SCH (09:24)
[2018-09-05] MEDS: ATORVASTATIN 40 MG TAB PO SCH (09:24)
[2018-09-05] MEDS: PANTOprazole 40 MG TAB PO SCH (09:25)
[2018-09-05] MEDS: FINASTERIDE 5 MG TAB PO SCH (09:25)
[2018-09-05] MEDS: CHOLECALCIFEROL 1,000 UNITS TAB PO SCH (09:25)
[2018-09-05] MEDS: FEBUXOSTAT 40 MG TABLET PO SCH (09:25)
[2018-09-05] MEDS: NICOTINE 21 MG/24 HR TDSY TD SCH (09:26)
[2018-09-05] MEDS: ENALAPRIL MALEATE 10 MG TAB PO SCH (09:26)
--- NOTE | 2018-09-05 10:28 | Operative Report ---
DATE OF OPERATION: 09/05/2018 PREOPERATIVE DIAGNOSES: 1. Recurrent right pleural effusion. 2. Right lung cavitary lesion. POSTOPERATIVE DIAGNOSES: 1. Recurrent right pleural effusion. 2. Right lung cavitary lesion. PROCEDURE: Right thoracentesis under ultrasound guidance. SURGEON: Dr. Cohen. MANAGER CLEANING: ALEXIS Jones. ANESTHESIA: Local. SPECIFICS OF PROCEDURE: On the morning of 09/05/2018, the patient was evaluated and I had a long discussion. I had performed a thoracentesis on him a few weeks ago. The fluid has reaccumulated. He is short of breath and coughing. We had a long talk and he was desirous of having another tap for symptomatic relief. In addition, we do not know if this patient has a malignancy or not. We are suspicious he has a squamous cell carcinoma. We will send the fluid for cytology and also set him up for another CT guided biopsy. We performed a thoracentesis without difficulty today. DESCRIPTION OF PROCEDURE: The patient was sat up straight. He is on the bedside. Ultrasound was used to arnaldo an area with a good window into the right pleural cavity with a significant amount of fluid. He was prepped and draped in usual sterile fashion. After appropriate timeout had been called, a 25 gauge needle was used to bring the skin wheal. A large bore needle was used to anesthetize skin and subcutaneous tissues and free flowing rust colored fluid was drained. A guidewire was inserted through the needle and the needle removed. A dilator was gently slid over the guidewire and removed. A triple lumen catheter was slid into 17 cm. A 1050 mL of a rust colored fluid was drained. I believe we may have been able to get a little more, but he was complaining of reexpansion, pain and coughing. For this reason, we stopped at this point. He had no bleeding from this. Antimicrobial dressing was placed. A chest x-ray is pending at this time. The pH was 7.37 of the fluid. I attest to the content of the Intraoperative Record and any orders documented therein. Any exception s are noted below.
--- NOTE | 2018-09-05 15:01 | CT Scan Report ---
CT-GUIDED CORE BIOPSY OF RIGHT MIDDLE LOBE MASS CLINICAL HISTORY: Right lung mass. COMPARISON STUDY: Chest CT August 14, 2018. PROCEDURE: Initially, axial unenhanced images of the chest were obtained. Note is again made of a rig ht middle lobe cavitary mass-like opacity that measures approximately 7.4 x 5.6 cm which may reflect a necrotic tumor or pulmonary abscess. This was targeted for core biopsy. A complex right pleural eff usion which contains gas was noted. Right lower lobe airspace opacity is also present. The procedure, risks and benefits were discussed with the patient including the risk of pneumothorax, bleeding and infection. The patient agreed to the procedure and informed written consent was obtained. The procedu re was performed by Dr. Munoz following a timeout. Patient was placed in the left lateral decubit us position on the table and axial images through the chest were obtained. Skin was prepped and drape d in sterile fashion and local anesthesia was achieved with 1% lidocaine. Under intermittent CT lis nce, 3 18-gauge core samples from the right middle lobe mass were obtained. Atypical cells were noted on the third pass. No additional sampling was performed. The patient tolerated the procedure well an d no immediate complications were evident. Post procedure CT demonstrated no pneumothorax IMPRESSION: Successful CT guided 18-gauge core biopsy x3 of the right middle lobe cavitary mass-like opacity. Electronically signed by: Wisam Munoz M.D. 09/05/2018 2:59 PM
--- NOTE | 2018-09-05 15:10 | XRay Report ---
XR chest 1V portable CLINICAL HISTORY: s/p right middle lobe mass biopsy COMPARISON STUDY: Regarding her second 2019. FINDINGS: Right middle lobe cavitary mass-like opacity is again noted. A right pleural effusion has s lightly decreased in volume. There is no pneumothorax. Right lower lung airspace opacity with volume loss is noted. Left lung is clear. Cardiomegaly is unchanged. No evidence for pulmonary edema. IMPRESSION: 1. No pneumothorax following right middle lobe mass biopsy. 2. Right pleural effusion, slightly decreased in size. Persistent right lower lung airspace opacity w ith volume loss. Electronically signed by: Wisam Munoz M.D. 09/05/2018 3:09 PM
--- NOTE | 2018-09-05 15:43 | Consultation Report ---
DATE OF CONSULTATION: 09/05/2018 REASON FOR CONSULTATION: Recurrent right pleural effusion with right lung mass with suspicion of carcinoma. HISTORY OF PRESENT ILLNESS: Shay Hodges is a 73-year-old male that I know having seen him just a few weeks ago for a right lung mass and right pleural effusion. This is a 73-year-old male who is followed by Dr. Des Salas, who has a long history of cigarette smoking, in fact continued to smoke at home while on oxygen the past 2 weeks. He also drinks alcohol regularly, but states he drank very little over the holidays. He was hospitalized 3 weeks ago after falling at home. He was found to have a large cavitary lesion in his right upper lobe. He underwent a thoracentesis for about 850 mL, which showed no evidence of malignancy and was a transudate. I saw the patient back today after he had been admitted yesterday with increasing shortness of breath and has a cavitary lesion which has persisted. His fluid has reaccumulated in the right lung. He is short of breath, but only on 3 liters of O2 with good saturations. I was asked to evaluate him today. Of interest is the fact that grossly a fluid, which has been aspirated from the cavitary lesion, appeared to be pus; however, there were no white cells on the Gram stain and it appears we are probably dealing with a malignancy. Dr. Des Miller felt this may be a necrotic squamous cell carcinoma, but could not call it. We came up for another needle biopsy, but he did not want that done and was discharged home 6 days after admission. I have been asked to see him now for further management. PAST MEDICAL HISTORY: 1. Long history of cigarette smoking (active). 2. Long history of alcohol abuse. 3. Right large cavitary lesion upper lobe. 4. Right pleural effusion, transudate. 5. Hypoxia. 6. Gastroesophageal reflux disease. 7. Small wounds on distal legs. 8. Hyperlipidemia. 9. Elevated liver functions. 10. Acute lung injury. 11. Hypertension. 12. Bony abnormalities of the feet. PAST SURGICAL HISTORY: 1. Multiple podiatric procedures of left foot and apparent repair of the left hallux valgus deformity. 2. Left carotid endarterectomy. 3. Right knee arthrotomy. MEDICATIONS: Please see chart. ALLERGIES: No known drug allergies. SOCIAL HISTORY: The patient is originally from this area. He has been smoking between 1 and 2 and up to even 3 packs a day since the age of 15 and has well over 100 pack years. He also drinks at least 5 shots of whiskey a day. He lives at home with his who is very supportive. FAMILY MEDICAL HISTORY: He has multiple children and grandchildren that are healthy. REVIEW OF SYSTEMS: The patient continues to lose weight, but he has become more short of breath and really had trouble ambulating. He also had urinary retention and incontinence. He has been treated with a Buenrostro here and much prefers this as he gets up multiple times during the night. We had scheduled an appointment for him to see the urologist, but that has not taken place yet. Denies fevers, chills. He has had no productive cough. He has had no hemoptysis. He denies nausea, vomiting or diarrhea. His appetite has been quite poor. His anterior left lower leg is improving. He has very little edema now. He has nonpalpable pedal pulses, but his feet are fairly warm. He denies rest pain. PHYSICAL EXAMINATION: GENERAL: This is an elderly disheveled appearing male, who is sitting on the edge of the bed. Chronically ill in appearance. He also had a decreased hearing acuity. He is awake, alert and oriented. He is asking about when the needle biopsy and thoracentesis could be performed. This 5 feet 8 inch male has lost approximately 6 pounds since I last saw him. He is awake and alert. HEENT: Sclerae are anicteric. He has bilateral arcus senilis. Pupils are equal and round. His tongue is midline. He is edentulous, but has no oral mucosal lesions. NECK: Supple. He has a well-healed left carotid incision, but no significant bruit. He has no lymphadenopathy or neck vein distention. LUNGS: He has decreased breath sounds on both bases, worse on the left. He also has some rhonchi, but no wheezing on my exam today. HEART: He has a regular rate and rhythm of his heart. ABDOMEN: Obese, but I detect no obvious ascites. He has no hepatosplenomegaly, but difficult to feel in his obese abdomen. EXTREMITIES: He has no real edema of his lower extremity, but does have a healing wound in the anterior left mid lower leg. He has had evidence of multiple incisions on his left foot. I do not feel any pulses peripherally. NEUROLOGIC: He is awake and alert, but has loss of fine touch discrimination in his feet. ASSESSMENT AND PLAN: Recurrent right pleural effusion. His x-ray shows a large amount of fluid, which is obscuring this mass. He has not had a CT. I was a bit surprised that this fluid was transudative. I am going to tap him again and sent it for an LDH and cytology as my suspicion is we are dealing with a malignancy. I am also going to get him set up to undergo a needle biopsy down in Radiology by Dr. Wisam Munoz, so we can hopefully get enough tissue for diagnosis and for treatment. His lungs were quite poor and I do not think that he is a candidate for any type of resection. [facility] HOSPITALCale
--- NOTE | 2018-09-05 19:10 | Hospitalist Progress Note ---
Date of Service September 05, 2018 Assessment & Plan (1) Pleural effusion, right: s/p thoracentesis again today. previous thoracentesis yielded transudative fluid, but this was felt to be odd as the suspicion was that this was a malignant effusion given the right-sided lung mass. the biopsy of lung mass will dictate his plan of care. Present on Admission?: Yes (2) Mass of right lung: s/p needle bx by radiology today. await path. 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 (3) Chronic respiratory failure with hypoxia: has been on oxygen 2 liters continuously at home presumably due to COPD/ effusion. (4) BPH w urinary obs/LUTS: s/p moreland insertion yesterday. cont alpha farhad. (5) COPD (chronic obstructive pulmonary disease): w/ exacerbation. cont steroids, nebs, supportive care. (6) Peripheral arterial disease: cont lipitor. I am surprised he does not take asa or plavix at home. 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 BMP (10) Tobacco use disorder: treatment counselor to quit offer nicoderm patch (11) DVT prophylaxis: lovenox daily Subjective patient feels better s/p thoracentesis this am he is now scheduled for biopsy of right-sided lung mass this afternoon patient admits to ongoing tobacco use at home Constitutional: + fatigue; no fever Respiratory: + cough and + dyspnea on exertion Cardiovascular: no chest pain Gastrointestinal: no abdominal pain Physical Exam 2 Vital Signs (Past 24 Hours): Last Vital Signs Temp 36.4 C L 09/05/18 17:27 Pulse 85 09/05/18 17:27 Resp 18 09/05/18 17:27 BP 117/64 09/05/18 17:27 Pulse Ox 93 09/05/18 17:27 Constitutional: + ill appearing; no acute distress ENMT: external ear and nose normal, oropharynx normal Respiratory: no respiratory distress Auscultation: + diminished lung sounds (right base), + crackles (diffuse - right hemithorax posteriorly) and + wheezes (left lung - mild) Cardiovascular: Rate/Rhythm: regular rate and regular rhythm Heart Sounds: normal S1 and normal S2 Vessels: posterior tibial pulses present and dorsalis pedis pulses present; no JVD Gastrointestinal (Abdomen): normal bowel sounds, soft, nontender, no hepatosplenomegaly Skin: nicotine staining on fingernails; clubbing as well Psychiatric: A+Ox3, euthymic affect Results & Data Laboratory Results Laboratory Results - last 24 hr 09/05/18 09/05/18 09/05/18 05:29 05:29 07:19 WBC 11.50 H RBC 4.46 L Hgb 13.3 L Hct 40.3 L MCV 90.4 MCH 29.8 MCHC 33.0 RDW Std Deviation 47.1 H RDW Coeff of Tuan 14.3 Plt Count 227 MPV 9.7 Immature Gran % (Auto) 0.3 Neut % (Auto) 91.0 Lymph % (Auto) 6.0 [place] % (Auto) 2.7 Eos % (Auto) 0.0 Baso % (Auto) 0.0 Immature Gran # (Auto) 0.03 H Neut # (Auto) 10.47 H Lymph # (Auto) 0.69 L [place] # (Auto) 0.31 Eos # (Auto) 0.00 Baso # (Auto) 0.00 Sodium 132 L Potassium 4.2 Chloride 91 L Carbon Dioxide 36 H Anion Gap 5.0 BUN 13 D Creatinine 0.67 Est Cr Clr Drug Dosing 110.4 Est GFR ( Amer) 108.9 Est GFR (Non-Af Amer) 94.0 BUN/Creatinine Ratio 18.6 Glucose 165 H Calcium 9.2 Pleural LDH 889 _ (1) COPD (chronic obstructive pulmonary disease) COPD type: unspecified COPD Chronic bronchitis type: Emphysema type: Qualified Code(s): J44.9 - Chronic obstructive pulmonary disease, unspecified (2) Hypertension Hypertension type: essential hypertension Qualified Code(s): I10 - Essential (primary) hypertension (3) GERD (gastroesophageal reflux disease) Esophagitis presence: esophagitis presence not specified Qualified Code(s): K21.9 - Gastro-esophageal reflux disease without esophagitis
[2018-09-05] MEDS: guaiFENesin 600 MG TABCR PO SCH (20:30)
[2018-09-05] MEDS: TAMSULOSIN HCL 0.4 MG CAP PO SCH (20:30)
[2018-09-05] MEDS: GABAPENTIN 300 MG CAP PO SCH (20:31)
[2018-09-06] MEDS: ALBUT/IPRATROP 3MG/0.5MG NEB 3 ML VIAL NEB SCH ×6 (03:37→23:14)
[2018-09-06] MEDS: methylPREDNISolone 40 MG in SYRINGE 0 ML IV SCH (05:43)
--- NOTE | 2018-09-06 07:03 | XRay Report ---
XR chest 1V portable CLINICAL HISTORY: effusion COMPARISON STUDY: Chest radiograph September 05, 2018 2:48 PM. FINDINGS: Right lower lung aeration has diminished. A right pleural effusion has increased in size. C avitary right middle lobe mass-like opacity is largely obscured on this exam. Cardiomegaly is unchang ed. There is no pneumothorax. There is pulmonary vascular congestion. IMPRESSION: 1. Diminished aeration of the right lung with increase in a right pleural effusion which obscures the cavitary right middle lobe mass-like opacity. 2. No pneumothorax. 3. Pulmonary vascular congestion. Electronically signed by: Wisam Munoz M.D. 09/06/2018 7:02 AM
[2018-09-06 07:42] LABS: Albumin Level 1.9 gm/dl (3.4-5.0); BUN Creatinine Ratio 28.6 (10-20); Calcium 9.2 mg/dl (8.5-10.1); Creatinine Clr Calc Pharmacy 107.2 ml/min; Est GFR (African American) 107.6; Est GFR (Non-African American) 92.9; Potassium 4.2 mmol/L (3.5-5.1)
[2018-09-06 07:46] LABS: Albumin Globulin Ratio 0.4 (0.9-2); Bilirubin,Total 0.4 mg/dl (0.2-1); Globulin 4.7 gm/dl (2.5-4.0); Total Protein 6.6 gm/dl (6.4-8.2)
[2018-09-06] MEDS: DULERA - ORDER AWAITING ACTION SCH ×3 (08:42→23:24)
[2018-09-06] MEDS: FUROSEMIDE 20 MG TAB PO SCH (08:43)
[2018-09-06] MEDS: FLUTICASONE PROPIONATE NA SPR 16 GM BTL SCH (08:43)
[2018-09-06] MEDS: dilTIAZem HCL 120 MG CAPCR PO SCH (08:43)
[2018-09-06] MEDS: FINASTERIDE 5 MG TAB PO SCH (08:44)
[2018-09-06] MEDS: FEBUXOSTAT 40 MG TABLET PO SCH (08:44)
[2018-09-06] MEDS: PANTOprazole 40 MG TAB PO SCH (08:45)
[2018-09-06] MEDS: ENALAPRIL MALEATE 10 MG TAB PO SCH (08:45)
[2018-09-06] MEDS: CHOLECALCIFEROL 1,000 UNITS TAB PO SCH (08:45)
[2018-09-06] MEDS: ATORVASTATIN 40 MG TAB PO SCH (08:46)
[2018-09-06] MEDS: NICOTINE 21 MG/24 HR TDSY TD SCH (08:46)
[2018-09-06] MEDS: ENOXAPARIN INJ 30 MG/0.3 ML SYR SQ SCH (08:47)
--- NOTE | 2018-09-06 11:06 | Hospitalist Progress Note ---
Date of Service September 06, 2018 Assessment & Plan (1) Pleural effusion, right: s/p thoracentesis hospital day #1. Fluid was exudative. This is likely a malignant effusion. The fluid radiographically is already reacummulating. Bx of RML mass is c/w squamous cell lung ca. Defer management of the malignant effusion to Dr. Cohen. PleurX? Pleurodesis? Other? Present on Admission?: Yes (2) Mass of right lung: s/p needle bx by radiology with path c/w squamous cell ca of the lung. Defer management to Dr. Cohen. Will also need heme/onc consultation. (3) Chronic respiratory failure with hypoxia: has been on oxygen 2 liters continuously at home presumably due to COPD/ pleural effusion. o2 sats have been stable. (4) BPH w urinary obs/LUTS: s/p moreland insertion, at his request, on day of admission. cont alpha farhad. cont finasteride. would leave in place for now, and consider spontaneous voiding trial in 3-4 days. u/a on 09/04/18 was normal/not suggestive of UTI. (5) COPD (chronic obstructive pulmonary disease): w/ exacerbation - but mild flare. wean steroids to 20mg q12h. can likely go to PO prednisone tomorrow. cont nebs, supportive care. (6) Peripheral arterial disease: cont lipitor. I am surprised he does not take asa or plavix at home. 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 BMP Na stable today would fluid restrict to 1500cc/day (10) Tobacco use disorder: senior counsel to quit nicoderm patch (11) Varicose veins of left lower extremity: obtain doppler of left leg to r/o DVT but likely this is all just varicose veins (12) History of alcoholism: has not drank in nearly a month no signs/symptoms of withdrawal (13) DVT prophylaxis: lovenox daily I did not share the pt's bx results with him today because he was alone he reported his was coming in tomorrow morning the team could share with him the results then since he will have his spouse at that time Subjective the patient did not have much in the way of complaints today denies cough denies dyspnea denies chest pain appetite is good anxiously awaiting test results he stated to me "I'm going to have surgery" [by Dr. Cohen]; he could not give details on this Constitutional: no fever Respiratory: no cough, no hemoptysis and no wheezing Cardiovascular: no chest pain Gastrointestinal: no diarrhea/loose stools Physical Exam 2 Vital Signs (Past 24 Hours): Last Vital Signs Temp 36.7 C 09/06/18 07:51 Pulse 79 09/06/18 07:51 Resp 18 09/06/18 07:51 BP 150/72 H 09/06/18 07:51 Pulse Ox 94 09/06/18 07:51 Constitutional: + ill appearing; no acute distress ENMT: external ear and nose normal, oropharynx normal Respiratory: no respiratory distress Auscultation: + diminished lung sounds (right base) and + crackles (right base, maybe slightly less than yesterday); no wheezes Cardiovascular: Rate/Rhythm: regular rate and regular rhythm Heart Sounds: normal S1 and normal S2; no murmur Vessels: posterior tibial pulses present and dorsalis pedis pulses present; no JVD Extremities: + varicosities (left leg - patient reports it is chronic ); no edema Gastrointestinal (Abdomen): normal bowel sounds, soft, nontender, no hepatosplenomegaly Psychiatric: A+Ox3, euthymic affect Results & Data Laboratory Results Laboratory Results - last 24 hr 09/06/18 06:57 Sodium 134 L Potassium 4.2 Chloride 94 L Carbon Dioxide 34 H Anion Gap 6.0 BUN 20 H D Creatinine 0.69 Est Cr Clr Drug Dosing 107.2 Est GFR ( Amer) 107.6 Est GFR (Non-Af Amer) 92.9 BUN/Creatinine Ratio 28.6 H Glucose 141 H Calcium 9.2 Total Bilirubin 0.4 AST 53 H ALT 65 Alkaline Phosphatase 133 H Total Protein 6.6 Albumin 1.9 L Globulin 4.7 H Albumin/Globulin Ratio 0.4 L _ (1) COPD (chronic obstructive pulmonary disease) COPD type: unspecified COPD Chronic bronchitis type: Emphysema type: Qualified Code(s): J44.9 - Chronic obstructive pulmonary disease, unspecified (2) GERD (gastroesophageal reflux disease) Esophagitis presence: esophagitis presence not specified Qualified Code(s): K21.9 - Gastro-esophageal reflux disease without esophagitis (3) Hypertension Hypertension type: essential hypertension Qualified Code(s): I10 - Essential (primary) hypertension (4) Varicose veins of left lower extremity Varicose vein complication: unspecified Qualified Code(s): I83.92 - Asymptomatic varicose veins of left lower extremity
--- NOTE | 2018-09-06 13:02 | Progress Note ---
DATE: 09/06/2018 Mr. Hodges was seen today. He states he had a "rough night." He does not really complain of pain, just had difficulty sleeping. I specifically asked if he was craving cigarettes, but has had a nicotine patch on and he states that he does not feel this is the problem. I think he is a bit anxious. I was a bit surprised because his pleural fluid was different. It was tested about 3 weeks ago and the LDH was only 91. The fluid that was drained yesterday morning had a LDH of 889; however, I discussed this with pathology and they do not really see any obvious malignant cells in the fluid. Having said that, it does appear that he has a carcinoma in the core needle biopsy done yesterday down in radiology. I discussed this with Dr. Pedro from pathology, we are going to wait for final stains to come back. Otherwise, he looks and sounds about the same.
--- NOTE | 2018-09-06 14:21 | Ultrasound Report ---
US venous doppler LE LT CLINICAL HISTORY: 73 years-old Male presenting with palpable clot below the knee vein?. TECHNIQUE: Real-time grayscale and color and spectral Doppler ultrasound imaging of the veins of the left lower extremity was performed. Compression and augmentation were also utilized. COMPARISON: None. FINDINGS: LEFT: Common femoral vein: Patent. Greater saphenous vein (superficial): Patent. Deep femoral vein: Patent. Femoral vein: Patent. Popliteal vein: Patent. Calf veins: Patent. Other: Superficial varicosities in the medial left calf noted, which are patent. IMPRESSION: 1. No evidence of deep venous thrombosis. 2. Superficial varices in the left calf. Electronically signed by: Des Hayes M.D. 09/06/2018 2:20 PM
[2018-09-06] MEDS ORDERED: methylPREDNISolone 40 MG in SYRINGE 0 ML IV SCH (18:00)
[2018-09-06] MEDS: methylPREDNISolone 20 MG in SYRINGE 0 ML IV SCH (18:49)
[2018-09-06] MEDS: TAMSULOSIN HCL 0.4 MG CAP PO SCH (20:59)
[2018-09-06] MEDS: GABAPENTIN 300 MG CAP PO SCH (20:59)
[2018-09-06] MEDS: guaiFENesin 600 MG TABCR PO SCH (20:59)
[2018-09-07] MEDS: ALBUT/IPRATROP 3MG/0.5MG NEB 3 ML VIAL NEB SCH ×6 (03:08→22:56)
[2018-09-07] MEDS: methylPREDNISolone 20 MG in SYRINGE 0 ML IV SCH ×2 (05:35→17:19)
[2018-09-07] MEDS: DULERA - ORDER AWAITING ACTION SCH ×2 (08:08→15:22)
[2018-09-07] MEDS: dilTIAZem HCL 120 MG CAPCR PO SCH (08:09)
[2018-09-07] MEDS: FLUTICASONE PROPIONATE NA SPR 16 GM BTL SCH (08:10)
[2018-09-07] MEDS: FUROSEMIDE 20 MG TAB PO SCH (08:11)
[2018-09-07] MEDS: PANTOprazole 40 MG TAB PO SCH (08:12)
[2018-09-07] MEDS: FEBUXOSTAT 40 MG TABLET PO SCH (08:12)
[2018-09-07] MEDS: ENALAPRIL MALEATE 10 MG TAB PO SCH (08:13)
[2018-09-07] MEDS: FINASTERIDE 5 MG TAB PO SCH (08:13)
[2018-09-07] MEDS: ATORVASTATIN 40 MG TAB PO SCH (08:14)
[2018-09-07] MEDS: NICOTINE 21 MG/24 HR TDSY TD SCH (08:14)
[2018-09-07] MEDS: CHOLECALCIFEROL 1,000 UNITS TAB PO SCH (08:14)
[2018-09-07] MEDS: ENOXAPARIN INJ 30 MG/0.3 ML SYR SQ SCH (08:15)
[2018-09-07 09:44] LABS: BUN Creatinine Ratio 28.4 (10-20); Calcium 9.5 mg/dl (8.5-10.1); Creatinine Clr Calc Pharmacy 97.3 ml/min; Est GFR (African American) 103.4; Est GFR (Non-African American) 89.2; Potassium 4.2 mmol/L (3.5-5.1)
--- NOTE | 2018-09-07 11:23 | Radiation OncologyConsultation ---
Date of Consultation September 07, 2018 Assessment & Plan (1) Squamous cell carcinoma lung: Assessment: Mr. 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 The patient has been admitted to the hospital several times due to significant pleural effusions and difficulty with breathing leading to acute respiratory failure. He is currently admitted to the hospital still due to respiratory issues and is being followed by Dr. Samm Cohen. We have been asked to evaluate the patient for consideration of radiation therapy. Treatment Options: Final recommendations will be based on the completion of the staging workup including a PET/CT scan and MRI of brain. If the patient has no evidence of distant metastatic disease, he would potentially be a candidate for concurrent chemotherapy and radiation therapy. If the patient does have evidence of distant metastatic disease, we would recommend potentially systemic therapy (as per medical oncology recommendations) with or without palliative external beam radiation therapy. Plan: 1. Recommend completion of staging workup including MRI of brain and PET/CT scan and obtaining a medical oncology consultation (inpatient or outpatient depending on primary team). 2. We will hold bringing the patient down for a potential CT simulation given the fact that he may or may not require further thoracentesis Via Pleurx catheter. I have spoken with Dr. Cohen and he will continue to assess the patient regarding the need for draining his pleural effusion. If the patient is still admitted to the hospital on Monday, we will bring him down for CT simulation for treatment planning in case he requires palliative external beam radiation therapy. Currently he is stable so we will hold radiation therapy until a full workup and evaluation has been completed. 3. Please call us with any further questions or concerns. Rationale/Explanation of Treatment: We have explained the indications, alternatives, benefits, risks and side effects of radiation therapy to the lung. We have explained the most common side effects which include but are not limited to skin erythema, skin break down, pulmonary fibrosis, adhesion development, radiation pneumonitis, spinal cord damage, brachial plexus damage, rib fracture, heart failure and heart disease, esophagitis, development of fistula, fatigue and development of secondary malignancy. We have explained the CT simulation process and treatment planning. We explained what to expect before , during and after treatment on a regular basis. The patient understands and would be willing to consent to treatment if required. The patient had multiple questions which were answered to their full satisfaction. Thank you for allowing us to participate in the care of this patient. This chart was completed in part utilizing [employer] Speech Voice Recognition software. Attempts were made to minimize the grammatical errors, random word insertions, pronoun errors and incomplete sentences. Any formal questions or concerns about the content, text or information contained within the body of this dictation should be directly addressed to the provider for clarification. Thang Colon MD Department of Radiation Oncology [facility] Laterality: right Qualified Code(s): C34.91 - Malignant neoplasm of unspecified part of right bronchus or lung History of Present Illness Reason for Consultation: New diagnosis of lung cancer Requesting Physician: Dr. Samm Cohen Attending Physician: Dr. Thang Colon History of Present Illness 08/14/2018. Presented to emergency room with complaints of shortness of breath and was found to have acute respiratory failure with hypoxia and hypercapnia. Imaging studies revealed lung abscess and right upper lobe. Patient was admitted to hospital for further workup and evaluation. 08/14/2018. Chest CTA. IMPRESSION: 1. 8.4 cm hypodense ovoid collection involves the posterior segment of the right upper lobe demonstrating central foci of internal air. This finding suggests probable intraparenchymal pulmonary abscess. 2. Trace left and small to moderate right pleural effusions. 3. Mixed groundglass and consolidative opacities of the right lower lobe suggest atelectasis or pneumonia. 4. No evidence of pulmonary thromboembolic disease. 5. Prominent and enlarged lymph nodes posterior to the right diaphragmatic marvin , possibly reactive. 6. Additional findings as above. 08/14/2018. CT of abdomen/pelvis. IMPRESSION: 1. No evidence of bowel obstruction. No evidence of free air 2. Normal appendix. No evidence of acute diverticulitis 3. Mild adenopathy 4. Trace ascites 5. Gallbladder wall thickening/pericholecystic edema. 6. Prostatomegaly and bladder wall thickening 7. Bilateral pleural effusions right greater than left 8. Partially visualized 8.5 cm fluid collection within the right upper lobe. This contains air bubbles, and therefore may represent an abscess, necrotizing pneumonia or less likely necrotizing neoplasm. Please see chest CT report. 08/17/2018. CT-guided biopsy of right upper lobe pulmonary mass. Suspicious for necrotic squamous cell carcinoma. 09/05/2018. Pleural fluid, right thoracentesis. No malignant cells seen. Primarily histiocytes with reactive cellular changes. 09/05/2018. Lung, right middle lobe, core biopsy. Positive for squamous cell carcinoma. 09/06/2018. Chest x-ray. IMPRESSION: 1. Diminished aeration of the right lung with increase in a right pleural effusion which obscures the cavitary right middle lobe mass-like opacity. 2. No pneumothorax. 3. Pulmonary vascular congestion. Currently, the patient continues to have some difficulty breathing however he feels it is stabilized after the drain to his fluids several times. He denies any hemoptysis, fevers, chills or night sweats. Energy and appetite are stable. No other significant complaints. He continues to rely on supplemental oxygen. Allergies Allergy/AdvReac Type Severity Reaction Status Date / Time amlodipine AdvReac edema Unverified 09/04/18 11:29 doxycycline AdvReac Nausea and Unverified 09/04/18 11:29 abdominal pain hydrochlorothiazide AdvReac hyponatremi Unverified 09/04/18 11:29 a Home Medications Home Medications Medication Instructions Recorded Confirmed Type atorvastatin 40 mg PO DAILY 08/14/18 09/04/18 History cholecalciferol (vitamin D3) 2,000 unit PO DAILY 08/14/18 09/04/18 History [Vitamin D3] diltiazem HCl 120 mg PO DAILY 08/14/18 09/04/18 History enalapril maleate 40 mg PO DAILY 08/14/18 09/04/18 History febuxostat 40 mg PO DAILY 08/14/18 09/04/18 History furosemide 20 mg PO QAM 08/14/18 09/04/18 History furosemide 40 mg PO UD 08/14/18 09/04/18 History gabapentin 300 mg PO HS 08/14/18 09/04/18 History guaifenesin [Mucinex] 1,200 mg PO HS 08/14/18 09/04/18 History ipratropium-albuterol 1 puff INHALATION QID 08/14/18 09/04/18 History mometasone 2 spray INTRANASAL DAILY 08/14/18 09/04/18 History mometasone-formoterol 2 puff INHALATION BID 08/14/18 09/04/18 History omeprazole 40 mg PO DAILY 08/14/18 09/04/18 History psyllium husk [Metamucil] 1 tbsp PO DAILY 08/14/18 09/04/18 History tamsulosin 0.4 mg PO HS 08/14/18 09/04/18 History finasteride 5 mg PO DAILY #30 tab 08/21/18 09/04/18 Rx nicotine [Nicoderm CQ] 21 mg TRANSDERMAL QAM 30 Days #30 08/21/18 09/04/18 Rx ea tamsulosin 0.8 mg PO HS #30 cap 08/21/18 09/04/18 Rx Patient History Medical History BPH (benign prostatic hyperplasia) Mlolmtd-Mtfei-Imoqr disease GERD (gastroesophageal reflux disease) Hypertension COPD (chronic obstructive pulmonary disease) (Chronic) Surgical History S/P foot surgery S/P thoracentesis Review of Systems Constitutional: as per Subjective / HPI Eyes: as per Subjective / HPI Ear, Nose, Mouth, Throat: as per Subjective / HPI Respiratory: as per Subjective / HPI Cardiovascular: as per Subjective / HPI Gastrointestinal: as per Subjective / HPI Musculoskeletal: as per Subjective / HPI Integumentary: as per Subjective / HPI Neurologic: as per Subjective / HPI Psychiatric: as per Subjective / HPI Endocrine: as per Subjective / HPI Hematologic / Lymphatic: as per Subjective / HPI Allergy / Immunological: as per Subjective / HPI Physical Exam 2 Vital Signs (Past 24 Hours): Last Vital Signs Temp 36.9 C 09/07/18 07:43 Pulse 67 09/07/18 07:49 Resp 18 09/07/18 07:49 BP 142/80 H 09/07/18 07:43 Pulse Ox 94 09/07/18 07:49 Constitutional: WD/WN, vitals as above + ill appearing and + disheveled Eyes: PERRL, conjunctivae normal, anicteric sclerae ENMT: external ear and nose normal, oropharynx normal Neck: trachea midline, no thyromegaly Respiratory: Auscultation: + diminished lung sounds and + crackles Cardiovascular: RRR, no murmur, no edema Gastrointestinal (Abdomen): normal bowel sounds, soft, nontender, no hepatosplenomegaly Musculoskeletal: no cyanosis or clubbing, extremities motor strength 5/5 Skin: no rashes, warm and dry Neurologic: patellar DTR's 2+ bilat, sensation intact and PERRL, EOMI, accommodation nl, no face palsy, no dysarthria Psychiatric: A+Ox3, euthymic affect Results Additional Studies 09/04/18 10:50 ECG 12 lead EKG Stat XR chest 1V portable Stat 09/05/18 07:20 XR chest 1V portable Stat 09/05/18 07:51 CT biopsy lung RT Routine 09/05/18 14:45 XR chest 1V portable Routine 09/05/18 14:50 CT guided FNA Routine CT limited or localized study Routine 09/06/18 06:00 XR chest 1V portable Urgent 09/06/18 11:05 US venous doppler LE LT Routine Time Spent Attending I spent 30 minutes for this consultation which included face to face interaction with the patient, obtaining clinical information, performing a physical exam, recommending a plan of action and answering questions.
--- NOTE | 2018-09-07 15:04 | Progress Note ---
DATE: 09/07/2018 The patient was seen today on 09/07/2018. I discussed this case with Dr. Loni Pedro from Pathology. This patient has a squamous cell carcinoma. I discussed this case with Dr. Yovani Wood from Medical Oncology as well as Dr. Thang Colon from Radiation Oncology. In addition, I have discussed this with the patient and Mrs. Hodges at the bedside today. I have explained that he does have a lung cancer which explained things. He is clinically stable, although he is still short of breath requiring oxygen and he is still having difficulty with his urine. I discussed his case with Dr. Spring, who will see him from a Urology standpoint. Issues to consider here are treatment with radiation and possible chemotherapy. Dr. Wood and I have discussed this and he would like the patient staged with a lymph node sampling of his mediastinal lymph nodes, which I think is appropriate. However, the patient is already scheduled for a PET scan on 09/10/2018. I believe the patient is stable enough to be discharged home tomorrow or the next day and then have his PET scan Monday morning. In addition, he has another problem in that he is symptomatic from his right pleural effusion. I did a bedside ultrasound today before he had his planning CT scan in Radiation Oncology, really did not have nearly as much fluid as he did before, although he has a small right pleural effusion. At this point, I would not drain this. He may need a PleurX catheter and we discussed this today. I am still suspicious that this fluid is malignant despite the fact the cytology was negative as the fluid had an LDH of almost 900. I will continue to follow along. If he is discharged, I will see him back in the office next week and we will get his other results from his PET scan and then plan on further staging procedures at that time. GATO
--- NOTE | 2018-09-07 16:48 | Urology Consultation ---
Date of Consultation September 07, 2018 Assessment & Plan (1) BPH (benign prostatic hyperplasia): -tamsulosin and finasteride at baseline - still with freq/urgency/sensation of incomplete emptying - certainly needs to prioritize his lung, however, pending the reset of his w/u and treatment plan, there may be a role for a procedural intervention to improve voiding History of Present Illness Attending Physician: Cindy Aguilar MD History of Present Illness 73y/o male w/ SCC of the R lung - secondary complaint of urinary frequency and urgency - present for 2+ years - no recent urology evaluation - on tamsulosin and finasteride for several years - requested moreland catheter upon arrival (he reports high volume drained after catheterization) Allergies Allergy/AdvReac Type Severity Reaction Status Date / Time amlodipine AdvReac edema Unverified 09/04/18 11:29 doxycycline AdvReac Nausea and Unverified 09/04/18 11:29 abdominal pain hydrochlorothiazide AdvReac hyponatremi Unverified 09/04/18 11:29 a Home Medications Home Medications Medication Instructions Recorded Confirmed Type atorvastatin 40 mg PO DAILY 08/14/18 09/04/18 History cholecalciferol (vitamin D3) 2,000 unit PO DAILY 08/14/18 09/04/18 History [Vitamin D3] diltiazem HCl 120 mg PO DAILY 08/14/18 09/04/18 History enalapril maleate 40 mg PO DAILY 08/14/18 09/04/18 History febuxostat 40 mg PO DAILY 08/14/18 09/04/18 History furosemide 20 mg PO QAM 08/14/18 09/04/18 History furosemide 40 mg PO UD 08/14/18 09/04/18 History gabapentin 300 mg PO HS 08/14/18 09/04/18 History guaifenesin [Mucinex] 1,200 mg PO HS 08/14/18 09/04/18 History ipratropium-albuterol 1 puff INHALATION QID 08/14/18 09/04/18 History mometasone 2 spray INTRANASAL DAILY 08/14/18 09/04/18 History mometasone-formoterol 2 puff INHALATION BID 08/14/18 09/04/18 History omeprazole 40 mg PO DAILY 08/14/18 09/04/18 History psyllium husk [Metamucil] 1 tbsp PO DAILY 08/14/18 09/04/18 History tamsulosin 0.4 mg PO HS 08/14/18 09/04/18 History finasteride 5 mg PO DAILY #30 tab 08/21/18 09/04/18 Rx nicotine [Nicoderm CQ] 21 mg TRANSDERMAL QAM 30 Days #30 08/21/18 09/04/18 Rx ea tamsulosin 0.8 mg PO HS #30 cap 08/21/18 09/04/18 Rx Patient History Medical History BPH (benign prostatic hyperplasia) Lgrvhgi-Njkpu-Xyqvo disease GERD (gastroesophageal reflux disease) Hypertension COPD (chronic obstructive pulmonary disease) (Chronic) Surgical History S/P foot surgery S/P thoracentesis Family History Other Family history non-contributory Social History marital status: Current Living Situation: Spouse Feels Safe at Home: Yes Smoking Status: Current every day smoker Tobacco Type: cigarettes Cigarettes per Day: 30+ Second Hand Exposure: No Hx Alcohol Use: Yes Alcohol type: hard liquor Alcohol Intake Frequency: 3 or more drinks per day Hx Substance Use: No Beliefs That Will Affect Care: None Communication Ability: Effective Review of Systems Constitutional: no fever and no chills Respiratory: + cough, + change in sputum and + dyspnea Cardiovascular: + chest pain and + dyspnea Gastrointestinal: no abdominal pain and no nausea Musculoskeletal: no back pain and no neck pain Integumentary: no rash Psychiatric: no behavioral changes and no hopelessness Endocrine: no fatigue Physical Exam 2 Vital Signs (Past 24 Hours): Last Vital Signs Temp 36.4 C L 09/07/18 15:27 Pulse 79 09/07/18 16:14 Resp 20 09/07/18 16:14 BP 131/77 09/07/18 15:27 Pulse Ox 99 09/07/18 16:14 Physical Exam: NAD AAOx3 NC O2 in place, but no gross dyspnea RRR abd soft, nontender prostate exam deferred no rash - wound on his lower back/sacral area no adenopathy of note _ (1) BPH (benign prostatic hyperplasia) Lower urinary tract symptom presence: symptoms present Lower urinary tract symptom detail: urinary frequency Qualified Code(s): N40.1 - Benign prostatic hyperplasia with lower urinary tract symptoms; R35.0 - Frequency of micturition
--- NOTE | 2018-09-07 19:48 | Hospitalist Progress Note ---
Date of Service September 07, 2018 Assessment & Plan (1) Pleural effusion, right: s/p thoracentesis on hospital day #1. Fluid was exudative. This is likely a malignant effusion. The fluid radiographically is already reacummulating on chest x-ray, however the surgeon looked at it with ultrasound today and did not think it was significant enough to perform repeat thoracentesis. Bx of RML mass is c/w squamous cell lung ca. Defer management of the malignant effusion to Dr. Cohen. If okay tomorrow, could possibly send to home in workup for staging of his cancer to be completed as an outpatient (2) Squamous cell carcinoma lung: Biopsy-proven squamous cell carcinoma of the lung on the right. Seen by radiation oncology and had simulation of the chest performed. Has PET scan scheduled for this Monday at 7 AM as an outpatient He will also need a brain MRI for staging as an outpatient and this can be ordered by oncology. He will need follow-up with hematology/oncology as an outpatient Thoracic surgery to follow to see if will need a surgical procedure or not to Place Pleurx catheter (3) Mass of right lung: s/p needle bx by radiology with path c/w squamous cell ca of the lung. Defer management to Dr. Cohen. Will also need heme/onc consultation as an outpatient. (4) Chronic respiratory failure with hypoxia: has been on oxygen 2 liters continuously at home presumably due to COPD/ pleural effusion. o2 sats have been stable. (5) BPH w urinary obs/LUTS: s/p moreland insertion, at his request, on day of admission. cont alpha farhad. cont finasteride. would leave in place for now, urology is following u/a on 09/04/18 was normal/not suggestive of UTI. (6) COPD (chronic obstructive pulmonary disease): w/ exacerbation - but mild flare. wean steroids to prednisone 30 mg daily tomorrow and taper down quickly from there as is not really wheezing cont nebs, supportive care. (7) Peripheral arterial disease: cont lipitor. I am surprised he does not take asa or plavix at home. 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 daily BMP Na stable today to slightly worse at 132 -Continue to fluid restrict to 1500cc/day -Counseled patient on importance of fluid restriction at home and he can liberalize the salt in his diet (11) Tobacco use disorder: Smoking cessation counseling given and he is committed to quitting nicoderm patch (12) Varicose veins of left lower extremity: doppler of left leg did indeed rule out a DVT and showed superficial varicosities (13) History of alcoholism: has not drank in nearly a month no signs/symptoms of withdrawal (14) Hyperlipidemia: Continue statin drug (15) Aortic stenosis: Mild-moderate seen on echo on 08/14/18, asymptomatic -Can be followed routinely as an outpatient (16) Chronic diastolic CHF (congestive heart failure): Grade 1 diastolic dysfunction seen on echo in 08/2018 Appears to be euvolemic -Fluid restricting for hyponatremia as above -Continue Lasix 20 mg once daily -Continue control of blood pressure (17) DVT prophylaxis: lovenox daily Disposition-to home in the next 1-2 days with his chronic home O2 with plans for outpatient PET scan on Monday morning We will get him instructions for the PET scan prior to discharge Subjective Pt frustrated about his fluid restriction. He denies SOB. Overall feels better. I discussed his case with Dr. Cohen of Thoracic Surgery today Review of Systems All systems reviewed & are unremarkable except as noted in HPI & below Physical Exam 2 Vital Signs (Past 24 Hours): Last Vital Signs Temp 36.4 C L 09/07/18 15:27 Pulse 74 09/07/18 19:01 Resp 18 09/07/18 19:01 BP 131/77 09/07/18 15:27 Pulse Ox 93 09/07/18 19:01 Constitutional: WD/WN, vitals as above Eyes: PERRL, conjunctivae normal, anicteric sclerae ENMT: Ears: no hearing impairment Neck: trachea midline, no thyromegaly Respiratory: normal respiratory effort; no respiratory distress Auscultation: + diminished lung sounds (At the right base) Cardiovascular: RRR, no murmur, no edema Gastrointestinal (Abdomen): normal bowel sounds, soft, nontender, no hepatosplenomegaly Musculoskeletal: Extremities: + extremities abnormal to inspection (With postop shoes on bilateral feet, not removed), no cyanosis and no clubbing Skin: + lesion (With left anterior distal tibia with wound with dressing in place; chronic venous stasis changes of the legs bilaterally with trophic changes and mild erythema) Neurologic: moves all extremities and awake; no focal motor deficits Psychiatric: A+Ox3, euthymic affect Results & Data Laboratory Results 09/07/18 Range/Units 08:54 Sodium 132 L (136-145) mmol/L Potassium 4.2 (3.5-5.1) mmol/L Chloride 93 L (98-107) mmol/L Carbon Dioxide 38 H (21-32) mmol/L Anion Gap 1.0 L (3-11) BUN 22 H (7-18) mg/dl Creatinine 0.76 (0.6-1.4) mg/dl Est Cr Clr Drug Dosing 97.3 ml/min Est GFR ( Amer) 103.4 Est GFR (Non-Af Amer) 89.2 BUN/Creatinine Ratio 28.4 H (10-20) Glucose 123 H (70-99) mg/dl Calcium 9.5 (8.5-10.1) mg/dl _ (1) Aortic stenosis Cardiac valve disease etiology: etiology unspecified Qualified Code(s): I35.0 - Nonrheumatic aortic (valve) stenosis (2) Hyperlipidemia Hyperlipidemia type: unspecified Qualified Code(s): E78.5 - Hyperlipidemia, unspecified (3) Varicose veins of left lower extremity Lower extremity ulceration location: Non-pressure ulcer stage: Varicose vein complication: unspecified Qualified Code(s): I83.92 - Asymptomatic varicose veins of left lower extremity (4) COPD (chronic obstructive pulmonary disease) COPD type: unspecified COPD Chronic bronchitis type: Emphysema type: Qualified Code(s): J44.9 - Chronic obstructive pulmonary disease, unspecified (5) Squamous cell carcinoma lung Laterality: right Qualified Code(s): C34.91 - Malignant neoplasm of unspecified part of right bronchus or lung (6) GERD (gastroesophageal reflux disease) Esophagitis presence: esophagitis presence not specified Qualified Code(s): K21.9 - Gastro-esophageal reflux disease without esophagitis (7) Hypertension Hypertension type: essential hypertension Qualified Code(s): I10 - Essential (primary) hypertension
[2018-09-07] MEDS: TAMSULOSIN HCL 0.4 MG CAP PO SCH (20:57)
[2018-09-07] MEDS: guaiFENesin 600 MG TABCR PO SCH (20:57)
[2018-09-07] MEDS: GABAPENTIN 300 MG CAP PO SCH (20:57)
[2018-09-08] MEDS: DULERA - ORDER AWAITING ACTION SCH ×2 (00:10→09:23)
[2018-09-08] MEDS: ALBUT/IPRATROP 3MG/0.5MG NEB 3 ML VIAL NEB SCH ×3 (03:09→11:45)
[2018-09-08 07:07] LABS: Hematocrit (blood only) 41.9 % (42-52); Hemoglobin 13.5 g/dL (14.0-18.0); Immature Granulocytes # (auto) 0.02 K/uL (0.00-0.02); Immature Granulocytes % (auto) 0.2 %; Lymphocytes # (auto) 0.51 K/uL (1.2-3.4); Lymphocytes % (auto) 5.5 %; Mean Corpuscular Hgb Conc 32.2 g/dL (32-36); Mean Corpuscular Volume 90.1 fL (80-100); Mean Platelet Volume 9.9 fL (7.4-10.4); Monocytes # (auto) 0.61 K/uL (0.11-0.59); Monocytes % (auto) 6.6 %; Neutrophils # (auto) 8.05 K/uL (1.4-6.5); Neutrophils % (auto) 87.7 %; Platelet Count 213 K/uL (130-400); RDW Coefficient of Variation 14.4 % (11.5-14.5); RDW Standard Deviation 47.2 fL (36.4-46.3); Red Blood Count 4.65 M/uL (4.7-6.1); White Blood Count 9.19 K/uL (4.8-10.8)
[2018-09-08 07:28] VITALS: TEMP 97.7
[2018-09-08 07:41] LABS: BUN Creatinine Ratio 34.8 (10-20); Calcium 9.1 mg/dl (8.5-10.1); Creatinine Clr Calc Pharmacy 107.2 ml/min; Est GFR (African American) 107.6; Est GFR (Non-African American) 92.9; Magnesium 2.5 mg/dl (1.8-2.4); Potassium 4.4 mmol/L (3.5-5.1)
[2018-09-08] MEDS: FLUTICASONE PROPIONATE NA SPR 16 GM BTL SCH (08:41)
[2018-09-08] MEDS: dilTIAZem HCL 120 MG CAPCR PO SCH (08:42)
[2018-09-08] MEDS: FUROSEMIDE 20 MG TAB PO SCH (08:43)
[2018-09-08] MEDS: FINASTERIDE 5 MG TAB PO SCH (08:43)
[2018-09-08] MEDS: ATORVASTATIN 40 MG TAB PO SCH (08:43)
[2018-09-08] MEDS: NICOTINE 21 MG/24 HR TDSY TD SCH (08:44)
[2018-09-08] MEDS: ENOXAPARIN INJ 30 MG/0.3 ML SYR SQ SCH (08:44)
[2018-09-08] MEDS: CHOLECALCIFEROL 1,000 UNITS TAB PO SCH (08:45)
[2018-09-08] MEDS: PANTOprazole 40 MG TAB PO SCH (08:45)
[2018-09-08] MEDS: ENALAPRIL MALEATE 10 MG TAB PO SCH (08:46)
[2018-09-08] MEDS ORDERED: predniSONE 10 MG TABLET PO SCH (09:00)
[2018-09-08] MEDS: FEBUXOSTAT 40 MG TABLET PO SCH (09:23)
--- NOTE | 2018-09-08 11:16 | Progress Note ---
DATE: 09/08/2018 I discussed this case with Dr. Cindy Aguilar last night. I believe Mr. Hodges can probably go home. He is scheduled for an outpatient PET scan on Monday. I will see him back in the office in 5 days on 09/13/2018. Will have the results of the PET scan. I will see him back for 2 reasons. One will be to determine whether he needs to have something more definitive done with the fluid in his right chest. The other is to determine whether any more tissue sampling or staging is necessary.
[2018-09-08 11:47] VITALS: O2SAT 96
--- NOTE | 2018-09-08 13:28 | Discharge Summary ---
Date of Service September 08, 2018 Admission HPI Per Admitting Provider Mr. Hodges is a 73yo male presenting today with progressive JOSHI/SOB, cough and malaise. Patient was recently admitted 08/14/18 - 08/21/18 with acute hypoxic/ hypercapnic respiratory failure, weakness/fatigue/cough as well as abnormal LFTs and GARETH. During that admission he was found to have an 8.4 cm cavitary lesion in the posterior segment of the RUL and a large right sided pleural effusion. Patient had a thoracentesis performed on 08/14/[address] Cohen in which 850mL of clear yellow fluid was removed. Fluid was transudative. He had CT guided aspiration with placement of pigtail drain perfomed by Dr. 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 He was treated with IV Vanc/Levaquin/Imipenem x 7 days and discharged home on Augmentin 875/125mg BID x 14 days. Due to the nature of the pulmonary lesion as well as the patient 's extensive smoking history there is high concern for malignancy. Insufficient tissue sample for formal diagnosis of malignancy at this time but atypical squamous cells observed in the sample. Additional biopsy was recommended during the last hospital stay, however, patient did not wish to undergo additional procedure and opted for discharge home. Patient was discharged home with home O2 and scheduled for PET scan (09/11/18) and formal PFTs. Also scheduled with Urology followup for BPH and followup with his PCP and Dr. Cohen. He presents today complaining of progressive JOSHI, patient becomes short of breath with ambulating in his home. Also with cough productive of clear sputum , wheezing, nausea, abdominal discomfort, loose stools and "not feeling right". He denies fevers, chills, sweats, headache, visual changes, chest pain, palpitations. He has BPH and has a very difficult time with urinary frequency and retention. ER Course: Albuterol. Solumedrol 125mg IV Principal Diagnosis Pleural effusion, Squamous Cell Lung Cancer Discharge Exam Constitutional WD/WN, vitals as above Eyes PERRL, conjunctivae normal, anicteric sclerae ENMT Ears: + hearing impairment Neck trachea midline, no thyromegaly Respiratory normal respiratory effort; no respiratory distress Auscultation: + diminished lung sounds (At the right lower and middle lung navarrete); no wheezes Cardiovascular RRR, no murmur, no edema Gastrointestinal (Abdomen) normal bowel sounds, soft, nontender, no hepatosplenomegaly Musculoskeletal Extremities: + extremities abnormal to inspection (With bilateral severe foot deformities with fallen arches and bunions), no cyanosis and no clubbing Skin + lesion (With left anterior distal tibia with wound with dressing in place; bilateral plantar midfoot with 2 x 1 cm ulcers with exudate, no surrounding erythema, scant drainage) Neurologic moves all extremities and awake; no focal motor deficits Psychiatric A+Ox3, euthymic affect Discharge Data Allergies Allergy/AdvReac Type Severity Reaction Status Date / Time amlodipine AdvReac edema Unverified 09/04/18 11:29 doxycycline AdvReac Nausea and Unverified 09/04/18 11:29 abdominal pain hydrochlorothiazide AdvReac hyponatremi Unverified 09/04/18 11:29 a Consultations Thoracic Surgery Radiology Urology Radiation Oncology Procedures Performed Operation Date: 09/07/18 10:55 <No data on this case meets the specified criteria> Ordered Studies 09/05/18 07:51 CT biopsy lung RT Routine 09/05/18 14:50 CT guided FNA Routine CT limited or localized study Routine 09/06/18 11:05 US venous doppler LE LT Routine CXR x 3 Hospital Course (1) Pleural effusion, right: s/p thoracentesis on hospital day #1. Fluid was exudative. This is likely a malignant effusion although cytology was negative for malignancy. The fluid radiographically is already reacummulating on chest x-ray, however the surgeon looked at it with ultrasound and did not think it was significant enough to perform repeat thoracentesis. Stable for dc to home with close follow up Bx of RML mass is c/w squamous cell lung ca. 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 Seen by radiation oncology and had simulation of the chest performed. Has PET scan scheduled for this Monday at 7 AM as an outpatient He will also need a brain MRI for staging as an outpatient and this can be ordered by oncology. Also may need bronchoscopy with mediastinal LN bx He will need follow-up with hematology/oncology as an outpatient-spoke with Dr. Wood who will get him scheduled Thoracic surgery to follow to see if will need a Pleurx catheter placed (3) Mass of right lung: s/p needle bx by radiology with path c/w squamous cell ca of the lung. Defer management to Dr. Cohen. Will also need heme/onc consultation as an outpatient. (4) Chronic respiratory failure with hypoxia: has been on oxygen 2 liters continuously at home presumably due to COPD/ pleural effusion. o2 sats have been stable. (5) BPH w urinary obs/LUTS: s/p moreland insertion, at his request, on day of admission. Removed since then and voiding on own, but with continued difficulty with straining cont alpha farhad at 0.8mg daily FLomax cont finasteride. u/a on 09/04/18 was normal/not suggestive of UTI. Ok to go home without Moreland in place, seen by Urology here who recommended f/u as outpt prn but take care of lung issues first -I advised stopping ipratropium on dc and using albuterol only in case contributing to his urinary issues (6) COPD (chronic obstructive pulmonary disease): w/ exacerbation - but mild flare.Now resolved -continue prednisone 30 mg daily tomorrow and taper down quickly from there as is not really wheezing-go down by 10mg daily each day -continue albuterol HFA qid -sounds like he has SYmbicort bid at home but not on home med list-he will continues this as well (7) Peripheral arterial disease: cont lipitor. 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 due to lung mass daily BMP Na stable to improved today at 135 -Continue to fluid restrict to 1500cc/day -Counseled patient on importance of fluid restriction at home and he can liberalize the salt in his diet (11) Tobacco use disorder: Smoking cessation counseling given and he is committed to quitting nicoderm patch (12) Varicose veins of left lower extremity: doppler of left leg did indeed rule out a DVT and showed superficial varicosities (13) History of alcoholism: has not drank in nearly a month no signs/symptoms of withdrawal (14) Hyperlipidemia: Continue statin drug (15) Aortic stenosis: Mild-moderate seen on echo on 08/14/18, asymptomatic -Can be followed routinely as an outpatient (16) Chronic diastolic CHF (congestive heart failure): Grade 1 diastolic dysfunction seen on echo in 08/2018 Appears to be euvolemic -Fluid restricting for hyponatremia as above -Continue Lasix 20 mg once daily -Continue control of blood pressure (17) DVT prophylaxis: lovenox daily was provided Disposition-to home today with Home Health PET scan planned for Monday-his has the instructions Total Time Total Time Spent Total Time Spent (In Minutes): >30 min Total Time Includes: Examination of the Patient, Discharge Planning, Medication Reconciliation and Communication With Other Providers (Oncology) Discharge Plan Discharge Items Patient Disposition: Home - Home Health Services Reason For Visit: SOB, PLEURAL EFFUSION Discharge Diagnosis: Pleural effusion, Lung Cancer Condition: Fair Discharge Goals: Decrease discomfort, Diagnostic testing, Learn about illness and Therapeutic intervention Activity: Resume your previous activity Lifting: Gradually increase as tolerated Bathing: No limitations Exercise/Sports: Gradually increase as tolerated Non-emergency contact: Primary Care Provider and Surgeon Call non-emergency contact if: you have any medication questions, your symptoms worsen, your pain is not controlled, your pain is worsening, your pain is unusual for you, your pain is concerning for you, your temperature is above 100.5, your wound has increased redness, your wound has increased drainage and your wound pain has increased Follow-up/Referrals: Des Salas MD [Primary Care Provider] - (Follow up within 1-2 weeks-please call for an appointment) Samm Cohen MD, FACS [Surgeon] - (Dr. Cohen's office will call to schedule you an appointment within the week.) Yovani Wood [Physician] - (Oncology (Cancer Doctor)- Dr. Wood's office will call you to set up an appointment to talk about treatment of your lung cancer within the next 1-2 weeks. ) Diet: Heart Healthy Addtl Provider Instructions: You were admitted to the hospital for fluid around your right lung called a pleural effusion. This fluid was drained and you felt better. You were found to have lung cancer based on a biopsy. You have a PET scan scheduled for this Monday. This test will help determine if the cancer has spread to other parts of your body. You will then need to follow up with Dr. Cohen and he will let you know if you need to have any other procedures done on your lungs. If you start feeling more short of breath, then please call Dr. Cohen right away. If you experience severe shortness of breath or chest pain, or any other severe issues, please go to the ER immediately. Your albuterol/IPRATROPIUM inhaler may be making your urinary issues worse. You should STOP that inhaler and use the new ALBUTEROL ONLY inhaler I prescribed for you up to 4 times daily. Prescriptions: New prednisone 10 mg Tablet 30 mg PO QAM Qty: 6 RF: 0 albuterol sulfate 90 mcg/actuation aerosol powdr breath activated 2 inha INH QID Qty: 1 RF: 2 Continue atorvastatin 40 mg tablet 40 mg PO DAILY RF: 0 enalapril maleate 20 mg tablet 40 mg PO DAILY RF: 0 omeprazole 40 mg Capsule,Delayed Release(Dr/Ec) 40 mg PO DAILY RF: 0 mometasone 50 mcg/actuation spray,non-aerosol 2 spray Intranasal DAILY RF: 0 gabapentin 300 mg capsule 300 mg PO HS RF: 0 diltiazem HCl 120 mg capsule,extended release 24hr 120 mg PO DAILY RF: 0 furosemide 20 mg Tablet 20 mg PO QAM RF: 0 furosemide 20 mg Tablet 40 mg PO UD RF: 0 guaifenesin [Mucinex] 1,200 mg Tablet Extended Release 12hr 1,200 mg PO HS RF: 0 cholecalciferol (vitamin D3) [Vitamin D3] 2,000 unit Capsule 2,000 unit PO DAILY RF: 0 febuxostat 40 mg tablet 40 mg PO DAILY RF: 0 mometasone-formoterol 100-5 mcg/actuation HFA aerosol inhaler 2 puff Inhalation BID RF: 0 psyllium husk [Metamucil] 3.4 gram/5.4 gram Powder 1 tbsp PO DAILY RF: 0 tamsulosin 0.4 mg Capsule 0.8 mg PO HS Qty: 30 RF: 0 nicotine [Nicoderm CQ] 21 mg/24 hr Patch 24 Hour 21 mg Transdermal QAM 30 Days Qty: 30 RF: 0 finasteride 5 mg tablet 5 mg PO DAILY Qty: 30 RF: 0 Discontinued tamsulosin 0.4 mg capsule 0.4 mg PO HS RF: 0 ipratropium-albuterol 20-100 mcg/actuation mist 1 puff Inhalation QID RF: 0 Stand-Alone Forms: [facility] Discharge Orders: Discharge Order (Routine); Ordered 09/08/18 Ordered By: Cindy Aguilar Admission Data Admit Date/Time: 09/04/18 13:39 Attending Provider: Cindy Aguilar Admit Provider: Natalie Ureña Primary Care Provider: Des Salas Other Providers: Natalie Ureña ; Samm Cohen ; Mikhail Santos ; Shay Zamora ; Hema Sanchez I ; Sushant Spring ; Natasha Huff ; Marty Krause II ; Kristin Smith ; Thang Colon Service: Medical Other Pending Studies at Discharge: No
[2018-09-08 13:47] VITALS: BP 147/70; PULSE 79
== END 2018-09-08 14:10 | disposition home health service (06) | DRG 181 ==
LOC: ED 10:34 → SUATTDRO 13:39 → 3N 13:39

== ENCOUNTER 2019-03-22 12:58 | Inpatient (IN) ==
[2019-03-22] MEDS ORDERED: SODIUM CHLORIDE 0.9% 1000ML 1,000 ML IV SCH (13:15)
[2019-03-22 13:27] LABS: Basophils # (auto) 0.01 K/uL (0-0.2); Basophils % (auto) 0.2 %; Eosinophils # (auto) 0.02 K/uL (0-0.5); Eosinophils % (auto) 0.3 %; Hematocrit (blood only) 24.3 % (42-52); Hemoglobin 8.4 g/dL (14.0-18.0); Immature Granulocytes # (auto) 0.01 K/uL (0.00-0.02); Immature Granulocytes % (auto) 0.2 %; Lymphocytes # (auto) 0.51 K/uL (1.2-3.4); Lymphocytes % (auto) 8.4 %; Mean Corpuscular Hgb Conc 34.6 g/dL (32-36); Mean Corpuscular Volume 94.6 fL (80-100); Monocytes # (auto) 0.29 K/uL (0.11-0.59); Monocytes % (auto) 4.8 %; Neutrophils # (auto) 5.22 K/uL (1.4-6.5); Neutrophils % (auto) 86.1 %; Platelet Count 105 K/uL (130-400); RDW Coefficient of Variation 15.6 % (11.5-14.5); RDW Standard Deviation 53.6 fL (36.4-46.3); Red Blood Count 2.57 M/uL (4.7-6.1); White Blood Count 6.06 K/uL (4.8-10.8)
[2019-03-22 13:43] LABS: Alanine Aminotransferase 24 U/L (12-78); Albumin Level 2.8 gm/dl (3.4-5.0); Aspartate Aminotransferase 30 U/L (15-37); BUN Creatinine Ratio 31.2 (10-20); Blood Urea Nitrogen 38 mg/dl (7-18); Calcium 8.9 mg/dl (8.5-10.1); Carbon Dioxide 26 mmol/L (21-32); Chloride 94 mmol/L (98-107); Creatinine Clr Calc Pharmacy 48.8 ml/min; Est GFR (African American) 66.8; Est GFR (Non-African American) 57.6; Glucose 119 mg/dl (70-99); Magnesium 2.1 mg/dl (1.8-2.4); Potassium 4.9 mmol/L (3.5-5.1); Sodium 127 mmol/L (136-145)
--- NOTE | 2019-03-22 13:43 | XRay Report ---
XR chest 1V portable CLINICAL HISTORY: 73 years-old Male presenting with weakness. TECHNIQUE: Portable upright AP view of the chest was obtained. COMPARISON: Chest CT from 12/24/2018 and chest x-ray from 10/03/2018. FINDINGS: Low lung volumes. This limits evaluation. No change in the cardiac mediastinal silhouette. Underlying cavitary lesion at the right lung base with associated pleural fluid best appreciated on prior chest CT. Left basilar bandlike opacity noted. No new focal opacity. No increased or new pleural fluid. No pneumothorax. Calcific tendinitis of the left shoulder. Upper abdomen normal. IMPRESSION: 1. Persistent right lower mass with associated pleural fluid. 2. Suspected left basilar atelectasis. 3. No new focal infiltrate to suggest acute cardiopulmonary disease. Electronically signed by: Des Hayes M.D. 03/22/2019 1:42 PM
[2019-03-22 13:54] LABS: Albumin Globulin Ratio 0.8 (0.9-2); Alkaline Phosphatase 107 U/L (45-117); Bilirubin,Total 0.5 mg/dl (0.2-1); Creatine Kinase 375 U/L (39-308); Globulin 3.7 gm/dl (2.5-4.0); Total Protein 6.5 gm/dl (6.4-8.2); Troponin I < 0.015 ng/ml (0-0.045)
[2019-03-22 15:02] LABS: Appearance Urine Clear (Clear); Bilirubin Urine Negative (Negative); Blood Urine Negative (Negative); Color Urine Yellow; Glucose Urine UA Negative (Negative); Ketones Urine Negative (Negative); Leukocyte Esterase Urine Negative (Negative); Nitrite Urine Negative (Negative); Protein Urine Negative (Negative); Specific Gravity Urine 1.019 (1.000-1.030); Urobilinogen Urine Negative (Negative)
[2019-03-22] MEDS ORDERED: PANTOprazole 40 MG in SYRINGE 0 ML IV STA (16:15)
--- NOTE | 2019-03-22 16:19 | History & Physical Report ---
Date of Service March 22, 2019 Assessment & Plan (1) Weakness: Likely related to anemia in the setting of recent chemo and poor PO intake and hypoNa Heme + in ED Hb 8.4 on admission, no transfusion required at this time, but I did consent pt in ED for possible future need Repeat Hb 9p and AM NPO, protonix BID push, IVF Recent EGD on 02/13 with gastritis and neg bx Follows with Dr. Pereira, c/s pending No recent c-scope Trop neg, EKG WNL WBC WNL, BS WNL UA neg, CXR neg for infection (2) Hyponatremia: 127 on admission, likely related to poor PO intake Monitor (3) Abdominal pain, epigastric: Chronic issue PRN oxycodone (4) BPH (benign prostatic hyperplasia): continue home meds (5) Aortic stenosis: continue home PRN lasix use (6) Squamous cell carcinoma lung: Finished radiation, last chemo was 03/[address] Colon if needed (7) Tobacco use disorder: Current nicotine patch use, will continue (8) Hyperlipidemia: hold home meds (9) Hypertension: continue home meds (10) GERD (gastroesophageal reflux disease): Hold home meds, protonix BID push as above (11) COPD (chronic obstructive pulmonary disease): continue home meds (12) DVT prophylaxis: SCDs given above History of Present Illness Primary Care Provider: eDs Salas MD 73 y/o M c/o weakness. Pt states that he was so weak this AM that he was afraid to get out of his chair for fear of falling. He states this was due to LE weakness. He had no dizziness or lightheadedness. This happened last night as well, but he was ultimately able to get out of the chair. This has been gradually increasing over the last several weeks. He has been on chemo after finishing radiation. He has had 5 chemo tx, the last being 03/07/19. He is currently waiting to determine if he has more chemo due to feeling so poorly with the tx. He has had ongoing issues with nausea requiring multiple PRN nausea pills. He does eat some, but it is restricted due to nausea and low appetite. He has ongoing issues with L lower and lateral abd pain. He takes oxycodone for this and it does help. He has occasional diarrhea. Pt denies fever, SOB, chest pain, LE pain. He does get LE swelling at time and takes PRN lasix 20mg PO. This happens about 2x/month. This has not been an issue the last few days. Pt wears O2 2L NC continuous. He has not felt like he needed to increase it at home. Pt had an EGD on 02/[address] Pereira. Dx with gastritis, bx neg. He denies recent c-scope. Allergies Allergy/AdvReac Type Severity Reaction Status Date / Time amlodipine AdvReac Intermediate edema Verified 03/14/19 12:01 hydrochlorothiazide AdvReac Intermediate hyponatremi Verified 03/14/19 12:01 a doxycycline AdvReac Mild Nausea and Verified 03/14/19 12:01 abdominal pain Home Medications Home Medications Medication Instructions Recorded Confirmed Type atorvastatin 40 mg PO QPM 08/14/18 03/22/19 History cholecalciferol (vitamin D3) 2,000 unit PO QPM 08/14/18 03/22/19 History [Vitamin D3] enalapril maleate 20 mg PO BID 08/14/18 03/22/19 History furosemide 20 mg PO UD PRN 08/14/18 03/22/19 History guaifenesin [Mucinex] 1,200 mg PO BID 08/14/18 03/22/19 History mometasone-formoterol HFA 100 2 puffs INH QAM gm 10/09/18 03/22/19 History mcg-5 mcg/actuation aerosol inhaler diltiazem CD 120 mg 120 mg PO QAM #90 cap 02/04/19 03/22/19 Rx capsule,extended release 24 hr omeprazole 40 mg capsule,delayed 40 mg PO QPM #90 cap 02/04/19 03/22/19 Rx release ipratropium-albuterol [Combivent 1 puff INHALATION QID #0 02/13/19 03/22/19 History Respimat] acetaminophen 500 mg PO Q6H PRN 03/22/19 03/22/19 History fentanyl [Duragesic] 1 patch TRANSDERMAL Q72H 03/22/19 03/22/19 History oxycodone 10 mg PO DIRECTED PRN 03/22/19 03/22/19 History Past Med/Surg History Medical History Chronic diastolic CHF (congestive heart failure) Aortic stenosis MILD TO MODERATE AORTIC STENOSIS Squamous cell carcinoma lung right lung--radiation History of alcoholism PER RECORDS-"STOPPED A LONG TIME AGO" Varicose veins of left lower extremity Tobacco use disorder Mass of right lung Peripheral arterial disease Hyperlipidemia Hypertension GERD (gastroesophageal reflux disease) COPD (chronic obstructive pulmonary disease) (Chronic) BPH (benign prostatic hyperplasia) Rlhfkti-Yxksf-Xpyxr disease Chronic back pain Gout Hearing deficit Hypertension Irregular heartbeat Obesity On home oxygen therapy 2L PRN AND HS Osteoarthritis Surgical History History of colonoscopy History of left-sided carotid endarterectomy @ [facility] by Dr. Guzman History of right knee surgery History of tooth extraction all teeth removed S/P foot surgery x2--1 on each foot S/P thoracentesis NO FURTHER DETAILS Family History Father Family history of diabetes mellitus Myocardial infarction Other No family history of adverse response to anesthesia Social History Preferred Language: Spanish Communication Ability: Effective Beliefs That Will Affect Care: None marital status: Current Living Situation: Spouse Current Living Situation Comment: Lives with and oldest son Feels Safe at Home: Yes Smoking Status: Former smoker Tobacco Type: cigarettes Cigarettes Per Day: 30+ Smoking End Date: 09/2018, currently on patch Second Hand Exposure: No Hx Alcohol Use: Yes ("STOPPED DRINKING LONG TIME AGO") Alcohol type: hard liquor Hx Substance Use: No Review of Systems Review of Systems: Pertinent positives and negatives reviewed in HPI--all others negative Physical Exam Constitutional: WD/WN, vitals as above Eyes: normal visual navarrete by confrontation and + anicteric sclerae Neck: normal visual inspection and trachea midline Respiratory: normal respiratory effort, lungs clear to auscultation Cardiovascular: Rate/Rhythm: regular rate and regular rhythm Gastrointestinal (Abdomen): Inspection/Auscultation: abdomen not distended Percussion/Palpation: + abdomen tender (L lateral) and abdomen soft Musculoskeletal: Head/Neck/Chest: normocephalic and head atraumatic negative for edema, peripheral pulses intact Skin: no rashes, warm and dry Neurologic: awake; not confused Speech / Cognition: normal speech Psychiatric: A+Ox3, euthymic affect Results & Data Vital Signs (Past 12 Hours) Vital Signs Temp Pulse Pulse Resp BP BP Pulse Ox 03/22/19 14:42 73 18 133/46 L 99 03/22/19 13:39 86 127/45 L 99 03/22/19 13:18 100 03/22/19 13:13 94 03/22/19 13:08 36.6 C 86 18 111/51 L 93 Diagnostic Findings CXR: R sided lower lobe mass with small pleural effusion ECG Rhythm: normal sinus Code Status & VTE Plan Code Status DNR/DNI "My knows that. If it's my time, it's my time." VTE Prophylaxis Plan VTE Prophylaxis will be ordered: Yes PG Care Time/CCT Total # of Minutes Spent Total Time Spent with Patient: Total time spent is greater than 50% in coordination of care (as documented) at patient's floor/unit and/or counseling patient: (1) BPH (benign prostatic hyperplasia) Lower urinary tract symptom presence: symptoms present Lower urinary tract symptom detail: urinary frequency Qualified Code(s): N40.1 - Benign prostatic hyperplasia with lower urinary tract symptoms; R35.0 - Frequency of micturition (2) Aortic stenosis Cardiac valve disease etiology: etiology unspecified Qualified Code(s): I35.0 - Nonrheumatic aortic (valve) stenosis (3) Squamous cell carcinoma lung Laterality: right Qualified Code(s): C34.91 - Malignant neoplasm of unspecified part of right bronchus or lung (4) Hyperlipidemia Hyperlipidemia type: unspecified Qualified Code(s): E78.5 - Hyperlipidemia, unspecified (5) Hypertension Hypertension type: essential hypertension Qualified Code(s): I10 - Essential (primary) hypertension (6) GERD (gastroesophageal reflux disease) Esophagitis presence: esophagitis presence not specified Qualified Code(s): K21.9 - Gastro-esophageal reflux disease without esophagitis
[2019-03-22] MEDS ORDERED: OXYCODONE HCL 10 MG/0.5 ML UDP PO PRN (16:33)
[2019-03-22] MEDS: OXYCODONE HCL IR 5 MG TAB (IMMEDIATE RELEASE) PO PRN (16:44)
--- NOTE | 2019-03-22 17:16 | Emergency Department Note ---
Entered by Josefa Driver acting as a scribe for Balwinder Maldonado DO History of Present Illness General Chief complaint: Fall Source: patient History of Present Illness Onset (ago): week(s) 2 Location: head (general) Severity: similar to prior episodes Pain Consistency: + other (persistent) Quality: + other (weakness) Associated symptoms: + nausea/vomiting (positive nausea; negative vomiting) and + other (negative abdominal pain; negative diarrhea); no chest pain and no shortness of breath The patient is a 73 year old male with a PMHx of GERD, HTN, HLD, lung cancer, and CHF who presents to the Emergency Room with complaints of persistent weakness that began about 2 weeks prior to arrival. The patient states that he has lung cancer and his last chemotherapy treatment was 2 weeks ago. He reports that it is not normal for him to be this weak this long after chemotherapy t reatment. The patient states that today he was unable to get up. The patient reports nausea, but denies vomiting. He denies chest pain, shortness of breath, abdominal pain, and diarrhea. No other exacerbating or remitting factors. Home Medications Home Medications Medication Instructions Recorded Confirmed Type atorvastatin 40 mg PO QPM 08/14/18 03/22/19 History cholecalciferol (vitamin D3) 2,000 unit PO QPM 08/14/18 03/22/19 History [Vitamin D3] enalapril maleate 20 mg PO BID 08/14/18 03/22/19 History furosemide 20 mg PO UD PRN 08/14/18 03/22/19 History guaifenesin [Mucinex] 1,200 mg PO BID 08/14/18 03/22/19 History mometasone-formoterol HFA 100 2 puffs INH QAM gm 10/09/18 03/22/19 History mcg-5 mcg/actuation aerosol inhaler diltiazem CD 120 mg 120 mg PO QAM #90 cap 02/04/19 03/22/19 Rx capsule,extended release 24 hr omeprazole 40 mg capsule,delayed 40 mg PO QPM #90 cap 02/04/19 03/22/19 Rx release ipratropium-albuterol [Combivent 1 puff INHALATION QID #0 02/13/19 03/22/19 History Respimat] acetaminophen 500 mg PO Q6H PRN 03/22/19 03/22/19 History fentanyl [Duragesic] 1 patch TRANSDERMAL Q72H 03/22/19 03/22/19 History oxycodone 10 mg PO DIRECTED PRN 03/22/19 03/22/19 History Allergies Allergy/AdvReac Type Severity Reaction Status Date / Time amlodipine AdvReac Intermediate edema Verified 03/14/19 12:01 hydrochlorothiazide AdvReac Intermediate hyponatremi Verified 03/14/19 12:01 a doxycycline AdvReac Mild Nausea and Verified 03/14/19 12:01 abdominal pain Past Med/Surg History Medical History Chronic diastolic CHF (congestive heart failure) Aortic stenosis MILD TO MODERATE AORTIC STENOSIS Squamous cell carcinoma lung right lung--radiation History of alcoholism PER RECORDS-"STOPPED A LONG TIME AGO" Varicose veins of left lower extremity Tobacco use disorder Mass of right lung Peripheral arterial disease Hyperlipidemia Hypertension GERD (gastroesophageal reflux disease) COPD (chronic obstructive pulmonary disease) (Chronic) BPH (benign prostatic hyperplasia) Uszfrjf-Nezid-Crmny disease Chronic back pain Gout Hearing deficit Hypertension Irregular heartbeat Obesity On home oxygen therapy 2L PRN AND HS Osteoarthritis Surgical History History of colonoscopy History of left-sided carotid endarterectomy @ [facility] by Dr. Guzman History of right knee surgery History of tooth extraction all teeth removed S/P foot surgery x2--1 on each foot S/P thoracentesis NO FURTHER DETAILS Family History Father Family history of diabetes mellitus Myocardial infarction Other No family history of adverse response to anesthesia Social History Preferred Language: Omani Communication Ability: Effective Beliefs That Will Affect Care: None marital status: Current Living Situation: Spouse Current Living Situation Comment: Lives with and oldest son Feels Safe at Home: Yes Smoking Status: Former smoker Tobacco Type: cigarettes Cigarettes Per Day: 30+ Smoking End Date: 09/2018, currently on patch Second Hand Exposure: No Hx Alcohol Use: Yes ("STOPPED DRINKING LONG TIME AGO") Alcohol type: hard liquo r Hx Substance Use: No Review of Systems See HPI for pertinent positives & negatives. and A total of 10 systems reviewed and were otherwise negative Physical Exam Vital Signs Vital Signs - 24 hr 03/22/19 13:08 03/22/19 13:13 03/22/19 13:18 Temperature 36.6 C Temperature Source Oral Sepsis Recent Fever Within 48 Hours No Sepsis New/Unexplained Change in Mental Status No Sepsis Action Taken by Nursing No Action Required Pulse Rate 86 Pulse Rate [Apical] Respiratory Rate 18 Blood Pressure 111/51 L Blood Pressure [Right Arm] Blood Pressure Mean 71 Blood Pressure Mean [Right Arm] Blood Pressure Position Sitting Pulse Oximetry 93 94 100 Oxygen Delivery Method Room Air Room Air Nasal Cannula Oxygen Flow Rate 2 03/22/19 13:39 03/22/19 14:42 03/22/19 16:47 Temperature Temperature Source Sepsis Recent Fever Within 48 Hours Sepsis New/Unexplained Change in Mental Status Sepsis Action Taken by Nursing Pulse Rate Pulse Rate [Apical] 86 73 77 Respiratory Rate 18 Blood Pressure Blood Pressure [Right Arm] 127/45 L 133/46 L 100/52 L Blood Pressure Mean Blood Pressure Mean [Right Arm] 72 75 68 Blood Pressure Position Pulse Oximetry 99 99 Oxygen Delivery Method Nasal Cannula Nasal Cannula Oxygen Flow Rate 2 GENERAL: Sitting up in bed. Disheveled. Chronically ill appearing. Malnourished. EYE EXAM: normal conjunctiva PERRL and EOM's grossly intact OROPHARYNX: no exudate, no erythema, lips, buccal mucosa, and tongue normal and mucous membranes are moist NECK: supple, no nuchal rigidity, no adenopathy, non-tender LUNGS: Clear to auscultation. Normal chest wall mechanics HEART: no murmurs, S1 normal and S2 normal ABDOMEN: abdomen soft, non-tender, normo-active bowel sounds, no masses, no rebound or guarding. BACK: Back is symmetrical on inspection and there is no deformity, no midline tenderness, no CVA tenderness. RECTAL: Faintly heme positive. Dark stool. SKIN: no rashes and no bruising UPPER EXTREMITIES: upper extremities are grossly normal. LOWER EXTREMITIES: Two small healing wounds on the plantar surface of the bilateral first mid metatarsals. No pitting edema. NEURO EXAM: Normal sensorium, cranial nerves II-XII grossly intact, normal speech, no gross weakness of arms, no gross weakness of legs. Course ED COURSE: Vital signs were reviewed and showed to be normal. The patients medical record was reviewed The above diagnostic studies were performed and reviewed. ED treatments and interventions as stated above. 1306: The patient was evaluated in room C7. A complete history and physical exa mination was performed. 1500: I discussed the case with Dr. Farnsworth-[facility] Hospitalist who accepts the patient for further evaluation. 1507: Upon reevaluation, the patient is resting comfortably. I discussed my findings with the patient and he understands and agrees with the treatment plan. Based on the patients age, coexisting illnesses, exam and lab findings the decision to treat as an inpatient was made. The patient remained stable while under my care. The patient will be evaluated for further management. Administered Medications Oxycodone HCl (Roxicodone Immediate Rel) 10 mg PO Q6H PRN PRN Reason: Pain Stop: 04/05/19 16:32 Last Admin: 03/22/19 16:44 Dose: 10 mg Documented by: [id number] Discontinued Medications Sodium Chloride (Nss 1000ml) 1,000 mls @ 999 mls/hr IV .Q1H1M PRISCA Stop: 03/22/19 14:15 Last Infusion: 03/22/19 14:23 Dose: 0 mls/hr Documented by: [id number] Admin: 03/22/19 13:20 Dose: 999 mls/hr Documented by: [id number] Pantoprazole Sodium 40 mg/ (Syringe) 10 mls @ 5 mls/min IV NOW STA Stop: 03/22/19 16:16 Last Admin: 03/22/19 16:45 Dose: 5 mls/min Documented by: [id number] Medical Decision Making Differential Diagnosis Differential Diagnosis includes but is not limited to dehydration, stroke, anemia, hypoglycemia, hyponatremia, hypernatremia, urinary tract infection, pneu monia, bronchitis, sepsis, gastroenteritis, additional abdominal pathology, metabolic abnormalities and infections. Medical Records Attestation: I reviewed the patient's medical records. Home Medications Current Medication List: was personally reviewed by me Laboratory Data Attestation: I reviewed the patient's lab results. Result diagrams: 03/22/19 13:15 03/22/19 13:15 Lab Results 03/22/19 03/22/19 03/22/19 Range/Units 13:15 13:15 14:53 WBC 6.06 (4.8-10.8) K/uL RBC 2.57 L (4.7-6.1) M/uL Hgb 8.4 L (14.0-18.0) g/dL Hct 24.3 L (42-52) % MCV 94.6 (80-100) fL MCH 32.7 (25-34) pg MCHC 34.6 (32-36) g/dL RDW Std Deviation 53.6 H (36.4-46.3) fL RDW Coeff of Tuan 15.6 H (11.5-14.5) % Plt Count 105 L (130-400) K/uL MPV 9.0 (7.4-10.4) fL Immature Gran % (Auto) 0.2 % Neut % (Auto) 86.1 % Lymph % (Auto) 8.4 % [place] % (Auto) 4.8 % Eos % (Auto) 0.3 % Baso % (Auto) 0.2 % Immature Gran # (Auto) 0.01 (0.00-0.02) K/uL Neut # (Auto) 5.22 (1.4-6.5) K/uL Lymph # (Auto) 0.51 L (1.2-3.4) K/uL [place] # (Auto) 0.29 (0.11-0.59) K/uL Eos # (Auto) 0.02 (0-0.5) K/uL Baso # (Auto) 0.01 (0-0.2) K/uL Sodium 127 L (136-145) mmol/L Potassium 4.9 (3.5-5.1) mmol/L Chloride 94 L (98-107) mmol/L Carbon Dioxide 26 (21-32) mmol/L Anion Gap 7.0 (3-11) BUN 38 H (7-18) mg/dl Creatinine 1.22 (0.6-1.4) mg/dl Est Cr Clr Drug Dosing 48.8 ml/min Est GFR ( Amer) 66.8 Est GFR (Non-Af Amer) 57.6 BUN/Creatinine Ratio 31.2 H (10-20) Glucose 119 H (70-99) mg/dl Calcium 8.9 (8.5-10.1) mg/dl Magnesium 2.1 (1.8-2.4) mg/dl Total Bilirubin 0.5 (0.2-1) mg/dl AST 30 (15-37) U/L ALT 24 (12-78) U/L Alkaline Phosphatase 107 (45-117) U/L Total Creatine Kinase 375 H (39-308) U/L Troponin I < 0.015 (0-0.045) ng/ml Total Protein 6.5 (6.4-8.2) gm/dl Albumin 2.8 L (3.4-5.0) gm/dl Globulin 3.7 (2.5-4.0) gm/dl Albumin/Globulin Ratio 0.8 L (0.9-2) TSH 0.843 (0.300-4.500) uIu/ml Urine Color Yellow Urine Appearance Clear (Clear) Urine pH 5.0 (4.5-7.5) Ur Specific [place] 1.019 (1.000-1.030) Urine Protein Negative (Negative) Urine Glucose (UA) Negative (Negative) Urine Ketones Negative (Negative) Urine Blood Negative (Negative) Urine Nitrite Negative (Negative) Urine Bilirubin Negative (Negative) Urine Urobilinogen Negative (Negative) Ur Leukocyte Esterase Negative (Negative) Imaging Data Radiologist's Impression: Radiology results as stated below per my review and the radiologist's interpretation: XR chest 1V portable CLINICAL HISTORY: 73 years-old Male presenting with weakness. TECHNIQUE: Portable upright AP view of the chest was obtained. COMPARISON: Chest CT from 12/24/2018 and chest x-ray from 10/03/2018. FINDINGS: Low lung volumes. This limits evaluation. No change in the cardiac mediastinal silhouette. Underlying cavitary lesion at the right lung base with associated pleural fluid best appreciated on prior chest CT. Left basilar bandlike opacity noted. No new focal opacity. No increased or new pleural fluid. No pneumothorax. Calcific tendinitis of the left shoulder. Upper abdomen normal. IMPRESSION: 1. Persistent right lower mass with associated pleural fluid. 2. Suspected left basilar atelectasis. 3. No new focal infiltrate to suggest acute cardiopulmonary disease. Electronically signed by: Des Hayes M.D. 03/22/2019 1:42 PM ECG Data Attestation: I personally reviewed and interpreted this ECG as follows: Indication: weakness Rate (beats per minute): 83 Rhythm: sinus rhythm Findings: + other (poor baseline; normal axis) Blood Pressure Blood Pressure Findings: Normal blood pressure MDM Narrative Patient is a 73-year-old male with past medical history of COPD, lung cancer receiving chemo who was last dose was about 2 weeks ago who was unable to get out of a chair today as he is too weak. He has no other complaints with some faint nausea. Denies any upper respiratory any abdominal symptoms. No urinary symptoms. Labs were obtained and showed hemoglobin of 8.4 down from 10. He was faintly heme positive with dark stool. Lightless were low at 105. BMP with a hyponatremia 127. BUN was elevated at 38. LFTs bilirubin and troponin was negative. TSH was normal. UA was without infection. Chest x-ray showed a mass. Patient was given IV fluids. There is no trauma. Rectal was heme posi tive as stated above. Patient was updated and discussed with the hospitalist for admission secondary to symptomatic anemia/weakness. Impression & Plan Weakness, Symptomatic anemia, Hyponatremia Discharge Plan Visit Data Chief Complaint: Fall Other Complaint: Weakness ED Provider: Balwinder Maldonado Discharge Problem: Weakness, Symptomatic anemia, Hyponatremia Patient Disposition: Being Evaluated by Hospitalist Forms Stand Alone Forms: [facility] Prescriptions: No Action mometasone-formoterol [Dulera] 100-5 mcg/actuation HFA aerosol inhaler 2 puffs INH QAM RF: 0 diltiazem HCl 120 mg capsule,extended release 24hr 120 mg PO QAM Qty: 90 RF: 3 omeprazole 40 mg capsule,delayed release(DR/EC) 40 mg PO QPM Qty: 90 RF: 3 Combivent Respimat 20-100 mcg/actuation Mist 1 puff INHALATION QID Qty: 0 RF: 0 acetaminophen 500 mg Capsule 500 mg PO Q6H PRN (Reason: Pain) RF: 0 fentanyl [Duragesic] 12 mcg/hr Patch 72 Hour 1 patch TRANSDERMAL Q72H RF: 0 oxycodone 10 mg tablet 10 mg PO DIRECTED PRN (Reason: Pain) RF: 0 atorvastatin 40 mg tablet 40 mg PO QPM RF: 0 enalapril maleate 20 mg tablet 20 mg PO BID RF: 0 furosemide 20 mg Tablet 20 mg PO UD PRN (Reason: Edema) RF: 0 guaifenesin [Mucinex] 1,200 mg Tablet Extended Release 12hr 1,200 mg PO BID RF: 0 cholecalciferol (vitamin D3) [Vitamin D3] 2,000 unit Capsule 2,000 unit PO QPM RF: 0 Referrals Referrals: Des Salas MD [Primary Care Provider] - The scribe's documentation has been prepared under my direction and personally reviewed by me in its entirety. I confirm that the note above accurately reflects all work, treatment, procedures, and medical decision making performed by me.
[2019-03-22] MEDS ORDERED: OXYCODONE HCL IR 5 MG TAB (IMMEDIATE RELEASE) PO PRN (17:45)
[2019-03-22] MEDS ORDERED: FUROSEMIDE 10 MG in SYRINGE 0 ML IV PRN (17:45)
[2019-03-22] MEDS ORDERED: ONDANSETRON INJ 2 MG/ML 2 ML VIAL IV PRN (17:45)
[2019-03-22] MEDS ORDERED: MAGNESIUM HYDROXIDE SUSP 30 ML UDC PO PRN (17:45)
[2019-03-22] MEDS ORDERED: FUROSEMIDE 20 MG TAB PO PRN (17:45)
[2019-03-22] MEDS: D5W AND NSS 1,000 ML IV SCH (19:43)
[2019-03-22] MEDS: IPRATROPIUM BROMIDE/ALBUTEROL respimat INH INH SCH ×2 (20:10)
[2019-03-22] MEDS: fentaNYL 12 MCG/HR TDSY TD SCH (20:18)
[2019-03-22] MEDS: PANTOprazole 40 MG in SYRINGE 0 ML IV SCH (20:19)
[2019-03-22] MEDS: guaiFENesin 600 MG TABCR PO SCH (20:19)
[2019-03-22] MEDS: ACETAMINOPHEN 325 MG TAB PO PRN (20:19)
[2019-03-22] MEDS: ENALAPRIL MALEATE 10 MG TAB PO SCH (20:31)
[2019-03-22 20:58] LABS: Hematocrit (blood only) 23.6 % (42-52); Hemoglobin 8.2 g/dL (14.0-18.0)
[2019-03-23] MEDS: OXYCODONE HCL IR 5 MG TAB (IMMEDIATE RELEASE) PO PRN ×4 (00:19→23:43)
[2019-03-23] MEDS: CHECK FENTANYL PATCH PLACEMENT SCH ×4 (00:21→23:43)
[2019-03-23] MEDS: D5W AND NSS 1,000 ML IV SCH ×2 (05:48→16:12)
[2019-03-23 06:33] LABS: Hematocrit (blood only) 23.4 % (42-52); Mean Corpuscular Hgb Conc 34.2 g/dL (32-36); RDW Coefficient of Variation 15.7 % (11.5-14.5); RDW Standard Deviation 54.3 fL (36.4-46.3); Red Blood Count 2.49 M/uL (4.7-6.1)
[2019-03-23 07:14] LABS: BUN Creatinine Ratio 30.5 (10-20); Calcium 8.5 mg/dl (8.5-10.1); Est GFR (African American) 111.7; Est GFR (Non-African American) 96.4; Mean Platelet Volume 9.2 fL (7.4-10.4); Platelet Count 86 K/uL (130-400); Potassium 4.4 mmol/L (3.5-5.1)
[2019-03-23 07:15] LABS: Basophils # (auto) 0.01 K/uL (0-0.2); Basophils % (auto) 0.2 %; Eosinophils # (auto) 0.02 K/uL (0-0.5); Eosinophils % (auto) 0.5 %; Immature Granulocytes # (auto) 0.01 K/uL (0.00-0.02); Immature Granulocytes % (auto) 0.2 %; Lymphocytes # (auto) 0.38 K/uL (1.2-3.4); Monocytes # (auto) 0.32 K/uL (0.11-0.59); Monocytes % (auto) 7.6 %; Neutrophils # (auto) 3.46 K/uL (1.4-6.5); Neutrophils % (auto) 82.5 %; Platelet Estimate Decreased (Normal)
[2019-03-23] MEDS: ENALAPRIL MALEATE 10 MG TAB PO SCH ×2 (08:04→21:28)
[2019-03-23] MEDS: PANTOprazole 40 MG in SYRINGE 0 ML IV SCH ×2 (08:04→21:28)
[2019-03-23] MEDS: guaiFENesin 600 MG TABCR PO SCH ×2 (08:05→21:27)
[2019-03-23] MEDS: IPRATROPIUM BROMIDE/ALBUTEROL respimat INH INH SCH ×4 (08:06→21:27)
[2019-03-23] MEDS: NICOTINE 21 MG/24 HR TDSY TD SCH (08:06)
[2019-03-23] MEDS: dilTIAZem HCL 120 MG CAPCR PO SCH (08:06)
[2019-03-23] MEDS ORDERED: SODIUM CHLORIDE 0.9% 250 ML IV PRN ×2 (08:15→12:50)
--- NOTE | 2019-03-23 09:29 | History & Physical Report ---
Date of Service March 23, 2019 Assessment & Plan (1) Symptomatic anemia: Patient presenting for evaluation of dizziness likely related to his anemia. Patient has no history of hematochezia, melena or hematemesis and a recent negative upper endoscopy. We could certainly proceed with colonoscopy in the near future given the heme positive stools. Given the circumstances though I suspect that the patient's anemia is more likely related to bone marrow suppression from his ongoing chemotherapy. Perhaps it would be of benefit to obtain insight from his oncologist prior to making arrangements for a procedure. We can certainly revisit the patient on Monday and determine if his clinical condition will support colonoscopy. In the meantime I would suggest consultation with medical oncology. Recommendations Reevaluation on Monday with to determine if colonoscopy will be performed Consider medical oncology evaluation as anemia likey related to ongoing chemotherapy History of Present Illness Chief Complaint: Fatigue Primary Care Provider: Des Salas MD The patient is a 73-year-old male with a history of advanced squamous cell lung cancer who presented to the hospital for evaluation of fatigue and dizziness. The patient has a history of lung cancer and recently completed his course of radiation therapy. It appears that he was started on chemotherapy 3 to 4 weeks ago and is presently on carboplatin with paclitaxel. Gastroneurology is consulted for evaluation of anemia and heme positive stools. The patient reports having no abdominal discomfort today and notes that he is passing brown stool without any recent alteration. He did have an upper endoscopy performed several weeks ago by Dr. Pereira which was notable for mild gastritis but otherwise unremarkable. The patient recalls that he was not certain he wanted to undergo a colonoscopy at that time due to his shortness of breath and underlying cancer. He is not certain when his last colonoscopy was but believes it may have been over 10 years ago. He has no hematemesis, nausea, vomiting nor hematochezia. Allergies Allergy/AdvReac Type Severity Reaction Status Date / Time amlodipine AdvReac Intermediate edema Verified 03/14/19 12:01 hydrochlorothiazide AdvReac Intermediate hyponatremi Verified 03/14/19 12:01 a doxycycline AdvReac Mild Nausea and Verified 03/14/19 12:01 abdominal pain Home Medications Home Medications Medication Instructions Recorded Confirmed Type atorvastatin 40 mg PO QPM 08/14/18 03/22/19 History cholecalciferol (vitamin D3) 2,000 unit PO QPM 08/14/18 03/22/19 History [Vitamin D3] enalapril maleate 20 mg PO BID 08/14/18 03/22/19 History furosemide 20 mg PO UD PRN 08/14/18 03/22/19 History guaifenesin [Mucinex] 1,200 mg PO BID 08/14/18 03/22/19 History mometasone-formoterol HFA 100 2 puffs INH QAM gm 10/09/18 03/22/19 History mcg-5 mcg/actuation aerosol inhaler diltiazem CD 120 mg 120 mg PO QAM #90 cap 02/04/19 03/22/19 Rx capsule,extended release 24 hr omeprazole 40 mg capsule,delayed 40 mg PO QPM #90 cap 02/04/19 03/22/19 Rx release ipratropium-albuterol [Combivent 1 puff INHALATION QID #0 02/13/19 03/22/19 History Respimat] acetaminophen 500 mg PO Q6H PRN 03/22/19 03/22/19 History fentanyl [Duragesic] 1 patch TRANSDERMAL Q72H 03/22/19 03/22/19 History oxycodone 10 mg PO DIRECTED PRN 03/22/19 03/22/19 History Past Med/Surg History Medical History Chronic diastolic CHF (congestive heart failure) Aortic stenosis MILD TO MODERATE AORTIC STENOSIS Squamous cell carcinoma lung right lung--radiation History of alcoholism PER RECORDS-"STOPPED A LONG TIME AGO" Varicose veins of left lower extremity Tobacco use disorder Mass of right lung Peripheral arterial disease Hyperlipidemia Hypertension GERD (gastroesophageal reflux disease) COPD (chronic obstructive pulmonary disease) (Chronic) BPH (benign prostatic hyperplasia) Elqjuqp-Xhcvb-Nssvs disease Chronic back pain Gout Hearing deficit Hypertension Irregular heartbeat Obesity On home oxygen therapy 2L PRN AND HS Osteoarthritis Surgical History History of colonoscopy History of left-sided carotid endarterectomy @ [facility] by Dr. Guzman History of right knee surgery History of tooth extraction all teeth removed S/P foot surgery x2--1 on each foot S/P thoracentesis NO FURTHER DETAILS Family History Father Family history of diabetes mellitus Myocardial infarction Other No family history of adverse response to anesthesia Social History Preferred Language: Surinamese Communication Ability: Effective Beliefs That Will Affect Care: None marital status: Current Living Situation: Spouse and Family Current Living Situation Comment: Lives with and oldest son Feels Safe at Home: Yes Smoking Status: Former smoker Tobacco Type: cigarettes Cigarettes Per Day: 30+ Second Hand Exposure: No Hx Alcohol Use: No Hx Substance Use: No Review of Systems + malaise and + weight loss; no sweats no diplopia no change in sputum and no hemoptysis + dyspnea at rest; no chest pain with activity and no syncope no abdominal pain, no bloating, no nausea, no hematemesis, no cramping and no change in stools no urinary frequency and no hematuria no radicular pain no falls no hopelessness and no change in appetite no polydipsia no easy bleeding and no coagulopathy Physical Exam Constitutional: + ill appearing; + not well nourished and no acute distress Eyes: PERRL, conjunctivae normal, anicteric sclerae Neck: trachea midline, no thyromegaly Respiratory: normal respiratory effort; no retractions, no cough and not tachypneic Cardiovascular: Rate/Rhythm: regular rhythm Heart Sounds: + murmur Gastrointestinal (Abdomen): normal bowel sounds, soft, nontender, no hepatosplenomegaly Musculoskeletal: Head/Neck/Chest: normocephalic and neck supple Skin: no lesions Neurologic: no focal motor deficits Results & Data Vital Signs (Past 12 Hours) Vital Signs Temp Pulse Pulse Resp BP BP Pulse Ox 03/23/19 04:00 36.4 C L 73 20 93/60 L 95 03/23/19 00:41 79 03/23/19 00:14 102/60 92/56 L 03/22/19 22:56 110/74 95/61 L 03/22/19 22:50 36.8 C 84 18 101/68 88/57 L 98 Laboratory Results Laboratory Results - last 24 hr 03/22/19 03/22/19 03/22/19 13:15 13:15 14:53 WBC 6.06 RBC 2.57 L Hgb 8.4 L Hct 24.3 L MCV 94.6 MCH 32.7 MCHC 34.6 RDW Std Deviation 53.6 H RDW Coeff of Tuan 15.6 H Plt Count 105 L MPV 9.0 Immature Gran % (Auto) 0.2 Neut % (Auto) 86.1 Lymph % (Auto) 8.4 [place] % (Auto) 4.8 Eos % (Auto) 0.3 Baso % (Auto) 0.2 Immature Gran # (Auto) 0.01 Neut # (Auto) 5.22 Lymph # (Auto) 0.51 L [place] # (Auto) 0.29 Eos # (Auto) 0.02 Baso # (Auto) 0.01 Platelet Estimate Sodium 127 L Potassium 4.9 Chloride 94 L Carbon Dioxide 26 Anion Gap 7.0 BUN 38 H Creatinine 1.22 Est Cr Clr Drug Dosing 48.8 Est GFR ( Amer) 66.8 Est GFR (Non-Af Amer) 57.6 BUN/Creatinine Ratio 31.2 H Glucose 119 H Calcium 8.9 Magnesium 2.1 Total Bilirubin 0.5 AST 30 ALT 24 Alkaline Phosphatase 107 Total Creatine Kinase 375 H Troponin I < 0.015 Total Protein 6.5 Albumin 2.8 L Globulin 3.7 Albumin/Globulin Ratio 0.8 L TSH 0.843 Urine Color Yellow Urine Appearance Clear Urine pH 5.0 Ur Specific [place] 1.019 Urine Protein Negative Urine Glucose (UA) Negative Urine Ketones Negative Urine Blood Negative Urine Nitrite Negative Urine Bilirubin Negative Urine Urobilinogen Negative Ur Leukocyte Esterase Negative Blood Type Antibody Screen Crossmatch 03/22/19 03/23/19 03/23/19 20:46 05:58 05:58 WBC 4.20 L RBC 2.49 L Hgb 8.2 L 8.0 L Hct 23.6 L 23.4 L MCV 94.0 MCH 32.1 MCHC 34.2 RDW Std Deviation 54.3 H RDW Coeff of Tuan 15.7 H Plt Count 86 L MPV 9.2 Immature Gran % (Auto) 0.2 Neut % (Auto) 82.5 Lymph % (Auto) 9.0 [place] % (Auto) 7.6 Eos % (Auto) 0.5 Baso % (Auto) 0.2 Immature Gran # (Auto) 0.01 Neut # (Auto) 3.46 Lymph # (Auto) 0.38 L [place] # (Auto) 0.32 Eos # (Auto) 0.02 Baso # (Auto) 0.01 Platelet Estimate Decreased L Sodium 134 L D Potassium 4.4 Chloride 102 Carbon Dioxide 27 Anion Gap 5.0 BUN 19 H Creatinine 0.63 D Est Cr Clr Drug Dosing 98.0 Est GFR ( Amer) 111.7 Est GFR (Non-Af Amer) 96.4 BUN/Creatinine Ratio 30.5 H Glucose 128 H Calcium 8.5 Magnesium Total Bilirubin AST ALT Alkaline Phosphatase Total Creatine Kinase Troponin I Total Protein Albumin Globulin Albumin/Globulin Ratio TSH Urine Color Urine Appearance Urine pH Ur Specific [place] Urine Protein Urine Glucose (UA) Urine Ketones Urine Blood Urine Nitrite Urine Bilirubin Urine Urobilinogen Ur Leukocyte Esterase Blood Type Antibody Screen Crossmatch 03/23/19 08:27 WBC RBC Hgb Hct MCV MCH MCHC RDW Std Deviation RDW Coeff of Tuan Plt Count MPV Immature Gran % (Auto) Neut % (Auto) Lymph % (Auto) [place] % (Auto) Eos % (Auto) Baso % (Auto) Immature Gran # (Auto) Neut # (Auto) Lymph # (Auto) [place] # (Auto) Eos # (Auto) Baso # (Auto) Platelet Estimate Sodium Potassium Chloride Carbon Dioxide Anion Gap BUN Creatinine Est Cr Clr Drug Dosing Est GFR ( Amer) Est GFR (Non-Af Amer) BUN/Creatinine Ratio Glucose Calcium Magnesium Total Bilirubin AST ALT Alkaline Phosphatase Total Creatine Kinase Troponin I Total Protein Albumin Globulin Albumin/Globulin Ratio TSH Urine Color Urine Appearance Urine pH Ur Specific [place] Urine Protein Urine Glucose (UA) Urine Ketones Urine Blood Urine Nitrite Urine Bilirubin Urine Urobilinogen Ur Leukocyte Esterase Blood Type Pending Antibody Screen Pending Crossmatch See Detail Code Status & VTE Plan VTE Prophylaxis Plan VTE Prophylaxis will be ordered: Yes
--- NOTE | 2019-03-23 10:52 | Family Medicine Progress Note ---
Date of Service March 23, 2019 Assessment & Plan (1) COPD (chronic obstructive pulmonary disease): (2) Weakness: Weakness: Pt complaining of LE weakness and LLQ abdominal pain Likely related to anemia vs. recent chemo with associated nausea and poor PO intake and hyponatremia Heme + in ED Hb 8.4 on admission, downtrended to 7.7 today, received 2 upRBC Trend H/H Q12H and transfuse if < 8 given hx of aortic stenosis GI consulted: Recent EGD on 02/13 with gastritis and neg bx. Dr. Valentine - recommended colonoscopy in the near future given heme+ stool but also likely component of BM suppression given pt on chemo and recommended recommended oncology consult prior to procedure as well, will revisit need for procedure on Monday CT abdomen: IMPRESSION: 1. No evidence of bowel obstruction. No evidence of free air 2. Normal appendix. No evidence of acute diverticulitis 3. Small fat-containing inguinal hernias 4. Prostatomegaly 5. Fecal retention 6. Persistent right pleural effusion with right basilar airspace opacities 7. Persistent 7.2 cm cavitary right middle lobe mass Diet advanced as no procedure likely until Monday Protonix BID push Cardiac work up: Trop neg, EKG WNL Infectious work up: WBC wnl, Abdominal CT with no concern for acute infection, UA neg, CXR neg for infection Hyponatremia: 127 on admission, likely related to poor PO intake Improved to 134 with IVFs Continue to monitor BMP Chronic Pain: Continue PRN oxycodone and fentanyl patch Squamous cell carcinoma lung: Finished radiation with Dr. Jaylen Colon, last chemo was 03/07 Heme/Onc consulted - Dr. Wu COPD (chronic obstructive pulmonary disease): Continue home inahlers: combivent respimat and mometasone-formoterol Hypertension/HLD/Aortic Stenosis/Diastolic CHF: Continue enalapril, diltiazem, Lasix PRN, atorvastatin GERD (gastroesophageal reflux disease): On Protonix BID Hold home med DVT prophylaxis: SCDs only Code: DNR/DNI Dispo: med surg (3) Symptomatic anemia: (4) Hyponatremia: (5) BPH (benign prostatic hyperplasia): (6) Aortic stenosis: (7) Squamous cell carcinoma lung: (8) Tobacco use disorder: (9) Peripheral arterial disease: (10) Hyperlipidemia: (11) Hypertension: (12) GERD (gastroesophageal reflux disease): (13) LLQ abdominal pain: CT abd pelvis oral and IV con CLINICAL HISTORY: Left lower quadrant abdominal pain. Heme-positive stools. LUNG CARCINOMA. COMPARISON STUDY: August 2018 TECHNIQUE: The patient was scanned in a dynamic helical fashion during intravenous administration of 94 cc of Optiray 320. A dose lowering technique was utilized adhering to the principles of ALARA. CT DOSE: FINDINGS: Lower chest: There is a persistent right pleural effusion. There are persistent right lower lobe airspace opacities. There is a persistent 7.2 cm fluid collection abutting the right hemidiaphragm containing air bubbles. This is consistent with a cavitary right middle lobe pulmonary mass Liver: The contrast-enhanced liver is normal in size, contour, and attenuation. There is no intrahepatic biliary ductal dilatation. The hepatic veins and portal veins are patent. Gallbladder: Unremarkable. Spleen: Normal in size and attenuation. Pancreas: Unremarkable. Adrenal glands: Unremarkable. Kidneys: There are bilateral renal cysts. There are no solid renal masses. There is no hydronephrosis. Bowel: There is mild fecal retention. There are no transition zones to indicate bowel obstruction. There is no evidence of acute diverticulitis. The appendix appears normal. Peritoneum: There is no free air. There is no ascites. There are bilateral fat- containing inguinal hernias. Vasculature: The abdominal aorta is normal in course and caliber. Adenopathy: None. Pelvic viscera: The prostate is enlarged. Skeletal structures: There is an old T12 compression fracture. IMPRESSION: 1. No evidence of bowel obstruction. No evidence of free air 2. Normal appendix. No evidence of acute diverticulitis 3. Small fat-containing inguinal hernias 4. Prostatomegaly 5. Fecal retention 6. Persistent right pleural effusion with right basilar airspace opacities 7. Persistent 7.2 cm cavitary right middle lobe mass Supervising Physician Co-Signing Physician Notes Attending attestation Pt seen and examined in concert with Dr. Rabago. In agreement with the documented findings as noted in the resident documentation with any exceptions or additions as noted here. Pt laying in bed - reports gradual improvement in overall weakness, though still short of baseline. Reports concern regarding SCC of the lung s/p multiple episodes of chemotherapy but overall appears optimistic/resigned. On evaluation - decreased breath sounds throughout. S1/S2 nl w/ 2/6 GERTRUDE. Persistent LLQ abdominal pain worse with palpation, though present without. Anemia in the setting of SCC on chemotherapy and heme +ve stool with recent EGD - gastroenterology consultation appreciated - trend H/H q12 hrs and transfuse if continues downward trend considering symptoms and aortic stenosis hx. Monitor for fluid overload w/ h/o diastolic HF noted in problem list. Gastroenterology requests heme/onc consultation prior to further procedural investigation. Continue PPI BID Hyponatremia - likely dehydration/poor POI - trend and hydrate. SIADH is a concern with cancer hx. Aortic stenosis and h/o HF - continue lasix, can bolus following transfusion if needed Else see resident documentation as noted. Subjective This morning patient reports persistent lower extremity weakness abdominal pain. Reports having some dark stools lately. Requesting something to eat Denies any headache/lightheadedness, chest pain, shortness of breath, nausea, vomiting, diarrhea, constipation, hematochezia, dysuria, hematuria Review of Systems Review of Systems: As per HPI Physical Exam Physical Exam: General: In NAD Neuro: A&O x 4 Pulm: CTAB, diminished breath sounds CV: RRR, 2 out of 6 systolic ejection murmur Abdomen:+BS, left lower quadrant TTP, no rebound tenderness LE: no LE edema, no calf TTP Results & Data Vital Signs (Past 12 Hours) Vital Signs Temp Pulse Pulse Resp BP BP Pulse Ox 03/23/19 07:00 72 03/23/19 04:00 36.4 C L 73 20 93/60 L 95 03/23/19 00:41 79 03/23/19 00:14 102/60 92/56 L 03/22/19 22:56 110/74 95/61 L Laboratory Results Abnormal lab results 03/22/19 03/23/19 03/23/19 Range/Units 20:46 05:58 05:58 WBC 4.20 L (4.8-10.8) K/uL RBC 2.49 L (4.7-6.1) M/uL Hgb 8.2 L 8.0 L (14.0-18.0) g/dL Hct 23.6 L 23.4 L (42-52) % RDW Std Deviation 54.3 H (36.4-46.3) fL RDW Coeff of Tuan 15.7 H (11.5-14.5) % Plt Count 86 L (130-400) K/uL Lymph # (Auto) 0.38 L (1.2-3.4) K/uL Platelet Estimate Decreased L (Normal) Sodium 134 L D (136-145) mmol/L BUN 19 H (7-18) mg/dl BUN/Creatinine Ratio 30.5 H (10-20) Glucose 128 H (70-99) mg/dl Crossmatch 03/23/19 03/23/19 Range/Units 08:27 11:40 WBC (4.8-10.8) K/uL RBC (4.7-6.1) M/uL Hgb 7.7 L (14.0-18.0) g/dL Hct 22.3 L (42-52) % RDW Std Deviation (36.4-46.3) fL RDW Coeff of Tuan (11.5-14.5) % Plt Count (130-400) K/uL Lymph # (Auto) (1.2-3.4) K/uL Platelet Estimate (Normal) Sodium (136-145) mmol/L BUN (7-18) mg/dl BUN/Creatinine Ratio (10-20) Glucose (70-99) mg/dl Crossmatch See Detail Diagnostic Findings CT abd pelvis oral and IV con CLINICAL HISTORY: Left lower quadrant abdominal pain. Heme-positive stools. LUNG CARCINOMA. COMPARISON STUDY: August 2018 TECHNIQUE: The patient was scanned in a dynamic helical fashion during intravenous administration of 94 cc of Optiray 320. A dose lowering technique was utilized adhering to the principles of ALARA. CT DOSE: FINDINGS: Lower chest: There is a persistent right pleural effusion. There are persistent right lower lobe airspace opacities. There is a persistent 7.2 cm fluid collection abutting the right hemidiaphragm containing air bubbles. This is consistent with a cavitary right middle lobe pulmonary mass Liver: The contrast-enhanced liver is normal in size, contour, and attenuation. There is no intrahepatic biliary ductal dilatation. The hepatic veins and portal veins are patent. Gallbladder: Unremarkable. Spleen: Normal in size and attenuation. Pancreas: Unremarkable. Adrenal glands: Unremarkable. Kidneys: There are bilateral renal cysts. There are no solid renal masses. There is no hydronephrosis. Bowel: There is mild fecal retention. There are no transition zones to indicate bowel obstruction. There is no evidence of acute diverticulitis. The appendix appears normal. Peritoneum: There is no free air. There is no ascites. There are bilateral fat- containing inguinal hernias. Vasculature: The abdominal aorta is normal in course and caliber. Adenopathy: None. Pelvic viscera: The prostate is enlarged. Skeletal structures: There is an old T12 compression fracture. IMPRESSION: 1. No evidence of bowel obstruction. No evidence of free air 2. Normal appendix. No evidence of acute diverticulitis 3. Small fat-containing inguinal hernias 4. Prostatomegaly 5. Fecal retention 6. Persistent right pleural effusion with right basilar airspace opacities 7. Persistent 7.2 cm cavitary right middle lobe mass Medications Administered Current Inpatient Medications Acetaminophen (Tylenol) 650 mg PO Q4H PRN PRN Reason: Pain or Fever Stop: 04/21/19 17:44 Last Admin: 03/22/19 20:19 Dose: 650 mg Documented by: Albuterol (Combivent Respimat) 1 puffs INH QIDR [facility] Stop: 04/21/19 17:44 Last Admin: 03/23/19 14:40 Dose: Not Given Documented by: Diltiazem HCl (Cardizem Cd) 120 mg PO QAM [facility] Stop: 04/22/19 08:59 Last Admin: 03/23/19 08:06 Dose: Not Given Documented by: Enalapril Maleate (Vasotec) 20 mg PO BID [facility] Stop: 04/21/19 20:59 Last Admin: 03/23/19 08:04 Dose: 20 mg Documented by: Fentanyl (Duragesic) 12 mcg TD Q72H [facility] Stop: 04/05/19 18:59 Last Admin: 03/22/19 20:18 Dose: 12 mcg Documented by: Furosemide (Lasix) 20 mg PO UD PRN PRN Reason: Edema Stop: 04/21/19 17:44 Guaifenesin (Mucinex) 1,200 mg PO BID [facility] Stop: 04/21/19 20:59 Last Admin: 03/23/19 08:05 Dose: 1,200 mg Documented by: Dextrose/Sodium Chloride (D5w And Nss) 1,000 mls @ 100 mls/hr IV .Q10H [facility] Stop: 04/21/19 17:44 Last Infusion: 03/23/19 15:40 Dose: 0 mls/hr Documented by: Furosemide 10 mg/ Syringe 1 mls @ 4 mls/min IV DAILY PRN PRN Reason: LE swelling Stop: 04/21/19 17:44 Pantoprazole Sodium 40 mg/ (Syringe) 10 mls @ 5 mls/min IV BID@0900,2100 [facility] Stop: 04/21/19 20:59 Last Admin: 03/23/19 08:04 Dose: 5 mls/min Documented by: Sodium Chloride (Nss) 250 mls @ 15 mls/hr IV .[id number] PRN PRN Reason: For Transfusion Stop: 03/23/19 20:00 Ioversol (Optiray 320 100ml) 94 ml IV ONCE PRN PRN Reason: Interaction Checking Stop: 03/27/19 14:46 Last Admin: 03/23/19 14:48 Dose: 94 ml Documented by: Magnesium Hydroxide (Milk Of Magnesia) 30 ml PO Q12H PRN PRN Reason: Constipation Stop: 04/21/19 17:44 Miscellaneous (Fentanyl Patch Check Placement) 1 ea N/A QS [facility] Stop: 04/22/19 00:00 Last Admin: 03/23/19 08:06 Dose: 1 ea Documented by: Miscellaneous (Fentanyl Patch Remove & Waste) 1 ea N/A Q3D [facility] Stop: 04/24/19 18:59 Miscellaneous (Remove Nicoderm Patch) 1 ea N/A HS [facility] Stop: 04/21/19 20:59 Last Admin: 03/22/19 20:21 Dose: 1 ea Documented by: Miscellaneous (Order Awaiting Action) 1 ea N/A QS [facility] Stop: 04/22/19 00:00 Last Admin: 03/23/19 07:50 Dose: Not Given Documented by: Nicotine (Nicoderm Cq) 21 mg TD QAM [facility] Stop: 04/22/19 08:59 Last Admin: 03/23/19 08:06 Dose: 21 mg Documented by: Ondansetron HCl (Zofran) 4 mg IV Q6H PRN PRN Reason: Nausea Stop: 04/21/19 17:44 Oxycodone HCl (Roxicodone Immediate Rel) 10 mg PO Q6H PRN PRN Reason: Pain Stop: 04/05/19 16:32 Last Admin: 03/23/19 06:33 Dose: 10 mg Documented by: PG Care Time/CCT Total # of Minutes Spent Total Time Spent with Patient: Total time spent is greater than 50% in coordination of care (as documented) at patient's floor/unit and/or counseling patient: Resident Activity Tracking Resident Involvement: Resident Care Provided Care Provided: Adult Hospital Medicine (1) BPH (benign prostatic hyperplasia) Lower urinary tract symptom detail: urinary frequency Lower urinary tract symptom presence: symptoms present Qualified Code(s): N40.1 - Benign prostatic hyperplasia with lower urinary tract symptoms; R35.0 - Frequency of micturition (2) Aortic stenosis Cardiac valve disease etiology: etiology unspecified Qualified Code(s): I35.0 - Nonrheumatic aortic (valve) stenosis (3) Hyperlipidemia Hyperlipidemia type: unspecified Qualified Code(s): E78.5 - Hyperlipidemia, unspecified (4) Squamous cell carcinoma lung Laterality: right Qualified Code(s): C34.91 - Malignant neoplasm of unspecified part of right bronchus or lung (5) GERD (gastroesophageal reflux disease) Esophagitis presence: esophagitis presence not specified Qualified Code(s): K21.9 - Gastro-esophageal reflux disease without esophagitis (6) Hypertension Hypertension type: essential hypertension Qualified Code(s): I10 - Essential (primary) hypertension
[2019-03-23 12:00] LABS: Hematocrit (blood only) 22.3 % (42-52); Hemoglobin 7.7 g/dL (14.0-18.0)
[2019-03-23] MEDS ORDERED: IOVERSOL 100ml IV PRN (14:47)
--- NOTE | 2019-03-23 15:03 | CT Scan Report ---
CT abd pelvis oral and IV con CLINICAL HISTORY: Left lower quadrant abdominal pain. Heme-positive stools. LUNG CARCINOMA. COMPARISON STUDY: August 2018 TECHNIQUE: The patient was scanned in a dynamic helical fashion during intravenous administration of 94 cc of Optiray 320. A dose lowering technique was utilized adhering to the principles of ALARA. CT DOSE: FINDINGS: Lower chest: There is a persistent right pleural effusion. There are persistent right lower lobe airs pace opacities. There is a persistent 7.2 cm fluid collection abutting the right hemidiaphragm contai isaiah air bubbles. This is consistent with a cavitary right middle lobe pulmonary mass Liver: The contrast-enhanced liver is normal in size, contour, and attenuation. There is no intrahepa tic biliary ductal dilatation. The hepatic veins and portal veins are patent. Gallbladder: Unremarkable. Spleen: Normal in size and attenuation. Pancreas: Unremarkable. Adrenal glands: Unremarkable. Kidneys: There are bilateral renal cysts. There are no solid renal masses. There is no hydronephrosis . Bowel: There is mild fecal retention. There are no transition zones to indicate bowel obstruction. Th ere is no evidence of acute diverticulitis. The appendix appears normal. Peritoneum: There is no free air. There is no ascites. There are bilateral fat-containing inguinal he rnias. Vasculature: The abdominal aorta is normal in course and caliber. Adenopathy: None. Pelvic viscera: The prostate is enlarged. Skeletal structures: There is an old T12 compression fracture. IMPRESSION: 1. No evidence of bowel obstruction. No evidence of free air 2. Normal appendix. No evidence of acute diverticulitis 3. Small fat-containing inguinal hernias 4. Prostatomegaly 5. Fecal retention 6. Persistent right pleural effusion with right basilar airspace opacities 7. Persistent 7.2 cm cavitary right middle lobe mass Electronically signed by: Juan Antonio Noble M.D. 03/23/2019 3:02 PM
[2019-03-23] MEDS ORDERED: PANTOprazole 40 MG in SYRINGE 0 ML IV ONE (16:00)
[2019-03-23] MEDS ORDERED: MICONAZOLE NITRATE POWDER 43 GM EXT PRN (20:07)
[2019-03-23] MEDS: ACETAMINOPHEN 325 MG TAB PO PRN (21:29)
[2019-03-23] MEDS: ATORVASTATIN 40 MG TAB PO SCH (22:01)
[2019-03-24 00:27] LABS: Hematocrit (blood only) 29.5 % (42-52); Hemoglobin 10.2 g/dL (14.0-18.0)
[2019-03-24 06:28] LABS: Hematocrit (blood only) 30.2 % (42-52); Mean Corpuscular Hgb Conc 33.1 g/dL (32-36); Mean Corpuscular Volume 93.2 fL (80-100); RDW Coefficient of Variation 16.9 % (11.5-14.5); RDW Standard Deviation 57.7 fL (36.4-46.3); Red Blood Count 3.24 M/uL (4.7-6.1); White Blood Count 4.22 K/uL (4.8-10.8)
[2019-03-24 06:36] LABS: Platelet Count 81 K/uL (130-400)
[2019-03-24 06:52] LABS: Basophils # (auto) 0.01 K/uL (0-0.2); Basophils % (auto) 0.2 %; Eosinophils # (auto) 0.02 K/uL (0-0.5); Eosinophils % (auto) 0.5 %; Immature Granulocytes # (auto) 0.01 K/uL (0.00-0.02); Immature Granulocytes % (auto) 0.2 %; Lymphocytes # (auto) 0.43 K/uL (1.2-3.4); Lymphocytes % (auto) 10.2 %; Monocytes # (auto) 0.29 K/uL (0.11-0.59); Monocytes % (auto) 6.9 %; Neutrophils # (auto) 3.46 K/uL (1.4-6.5)
[2019-03-24 07:08] LABS: BUN Creatinine Ratio 23.1 (10-20); Calcium 8.6 mg/dl (8.5-10.1); Creatinine Clr Calc Pharmacy 123.5 ml/min; Est GFR (African American) 122.9; Potassium 4.5 mmol/L (3.5-5.1)
[2019-03-24] MEDS: CHECK FENTANYL PATCH PLACEMENT SCH ×2 (08:07→15:32)
[2019-03-24] MEDS: PANTOprazole 40 MG in SYRINGE 0 ML IV SCH ×2 (08:08→20:34)
[2019-03-24] MEDS: ENALAPRIL MALEATE 10 MG TAB PO SCH ×2 (08:08→20:34)
[2019-03-24] MEDS: dilTIAZem HCL 120 MG CAPCR PO SCH ×2 (08:08→17:13)
[2019-03-24] MEDS: IPRATROPIUM BROMIDE/ALBUTEROL respimat INH INH SCH ×4 (08:08→20:31)
[2019-03-24] MEDS: NICOTINE 21 MG/24 HR TDSY TD SCH (08:09)
[2019-03-24] MEDS: guaiFENesin 600 MG TABCR PO SCH ×2 (08:09→20:34)
--- NOTE | 2019-03-24 09:09 | Progress Note ---
Date of Service March 24, 2019 Assessment & Plan (1) Symptomatic anemia: Patient with symptomatic anemia likely related to ongoing chemotherapy causing bone marrow suppression. Dr. Pereira will see the patient tomorrow to determine if colonoscopy would be appropriate given the heme positive stool. Please call with any additional questions or concerns. Subjective Patient notes that he is not feeling well today. Says he feels weak and somewh at short of breath. Review of Systems Eyes: no diplopia Respiratory: + dyspnea Cardiovascular: + dyspnea at rest; no chest pain with activity Gastrointestinal: no abdominal pain, no bloating, no nausea and no hematemesis Results & Data Vital Signs (Past 12 Hours) Vital Signs Temp Pulse Pulse Resp BP BP Pulse Ox 03/24/19 07:33 73 03/24/19 07:00 36.3 C L 76 18 95/56 L 100 03/24/19 04:00 36.8 C 98 H 18 98/60 L 94 03/23/19 23:47 37.2 C 83 19 102/66 90 03/23/19 23:08 92 H Laboratory Results Laboratory Results - last 24 hr 03/22/19 03/23/19 03/23/19 20:46 08:27 11:40 WBC RBC Hgb 7.7 L Hct 22.3 L MCV MCH MCHC RDW Std Deviation RDW Coeff of Tuan Plt Count MPV Immature Gran % (Auto) Neut % (Auto) Lymph % (Auto) [facility] % (Auto) Eos % (Auto) Baso % (Auto) Immature Gran # (Auto) Neut # (Auto) Lymph # (Auto) [facility] [place] [facility] # (Auto) Eos # (Auto) Baso # (Auto) Sodium Potassium Chloride Carbon Dioxide Anion Gap BUN Creatinine Est Cr Clr Drug Dosing Est GFR ( Amer) Est GFR (Non-Af Amer) BUN/Creatinine Ratio Glucose Osmolality Calcium Blood Type O Positive Blood Type Recheck O Positive Antibody Screen NEGATIVE Crossmatch See Detail 03/24/19 03/24/19 03/24/19 00:13 06:06 06:06 WBC 4.22 L RBC 3.24 L Hgb 10.2 L 10.0 L Hct 29.5 L 30.2 L MCV 93.2 MCH 30.9 MCHC 33.1 RDW Std Deviation 57.7 H RDW Coeff of Tuan 16.9 H Plt Count 81 L MPV 9.0 Immature Gran % (Auto) 0.2 Neut % (Auto) 82.0 Lymph % (Auto) 10.2 [facility] % (Auto) 6.9 Eos % (Auto) 0.5 Baso % (Auto) 0.2 Immature Gran # (Auto) 0.01 Neut # (Auto) 3.46 Lymph # (Auto) 0.[address] [place] [facility] # (Auto) 0.29 Eos # (Auto) 0.02 Baso # (Auto) 0.01 Sodium 132 L Potassium 4.5 Chloride 101 Carbon Dioxide 28 Anion Gap 3.0 BUN 12 Creatinine 0.50 L Est Cr Clr Drug Dosing 123.5 Est GFR ( Amer) 122.9 Est GFR (Non-Af Amer) 106.0 BUN/Creatinine Ratio 23.1 H Glucose 98 Osmolality Calcium 8.6 Blood Type Blood Type Recheck Antibody Screen Crossmatch 03/24/19 07:25 WBC RBC Hgb Hct MCV MCH MCHC RDW Std Deviation RDW Coeff of Tuan Plt Count MPV Immature Gran % (Auto) Neut % (Auto) Lymph % (Auto) [facility] [place] [facility] % (Auto) Eos % (Auto) Baso % (Auto) Immature Gran # (Auto) Neut # (Auto) Lymph # (Auto) [facility] # (Auto) Eos # (Auto) Baso # (Auto) Sodium Potassium Chloride Carbon Dioxide Anion Gap BUN Creatinine Est Cr Clr Drug Dosing Est GFR ( Amer) Est GFR (Non-Af Amer) BUN/Creatinine Ratio Glucose Osmolality 274 L Calcium Blood Type Blood Type Recheck Antibody Screen Crossmatch
[2019-03-24] MEDS: OXYCODONE HCL IR 5 MG TAB (IMMEDIATE RELEASE) PO PRN ×3 (10:00→22:45)
[2019-03-24] MEDS: ACETAMINOPHEN 325 MG TAB PO PRN ×3 (10:00→20:30)
[2019-03-24] MEDS ORDERED: POLYETHYLENE (MIRALAX) 17 GM PACK PO SCH (11:00)
[2019-03-24] MEDS: DOCUSATE SODIUM 100 MG CAP PO SCH ×2 (11:19→20:32)
--- NOTE | 2019-03-24 11:49 | Family Medicine Progress Note ---
Date of Service March 24, 2019 Assessment & Plan (1) COPD (chronic obstructive pulmonary disease): (2) Weakness: Weakness and LLQ abdominal pain Likely related to anemia vs. recent chemo with associated nausea and thus poor PO intake vs. hyponatremia Heme + in ED Hb 8.4 on admission, downtrended to 7.7 on 03/23, received 2 upRBC Trend H/H and transfuse if < 8 given hx of aortic stenosis GI consulted: Recent EGD on 02/13 with gastritis and neg bx. Dr. Valentine - recommended colonoscopy in the near future given heme+ stool but also likely component of BM suppression given pt on chemo and recommended oncology consult prior to procedure as well, Dr. Pereira (pt's GI doc) will revisit need for procedure on Monday CT abdomen: IMPRESSION: 1. No evidence of bowel obstruction. No evidence of free air 2. Normal appendix. No evidence of acute diverticulitis 3. Small fat-containing inguinal hernias 4. Prostatomegaly 5. Fecal retention 6. Persistent right pleural effusion with right basilar airspace opacities 7. Persistent 7.2 cm cavitary right middle lobe mass Diet advanced as no procedure likely until Monday Protonix BID push Cardiac work up: Trop neg, EKG WNL Infectious work up: WBC wnl, Abdominal CT with no concern for acute infection, UA neg, CXR neg for infection Constipation - likely causing LLQ abdomindal pain Found to have fecal retention on CT abdomen on 03/23 On miralax and colace Hyponatremia: 127 on admission, likely related to poor PO intake vs. SIADH in the se tting of SCC of lung Improved to 134 with IVFs on 03/23 This AM decreased to 132 Serum Osm 274, urine osm 538, Na 105 Fluid restricted to 1500cc Continue to monitor BMP Chronic Pain: Continue PRN oxycodone and fentanyl patch Squamous cell carcinoma lung: Finished radiation with Dr. Jaylen Colon, last chemo was 03/07 Heme/Onc consulted - Dr. Wu Follow up in office at the end of the month to discuss care COPD (chronic obstructive pulmonary disease): Continue home inahlers: combivent respimat and mometasone-formoterol Hypertension/HLD/Aortic Stenosis/Diastolic CHF: Continue enalapril, diltiazem, Lasix PRN, atorvastatin GERD (gastroesophageal reflux disease): On Protonix BID Hold home med DVT prophylaxis: SCDs only Code: DNR/DNI Dispo: med surg (3) Symptomatic anemia: (4) Hyponatremia: (5) BPH (benign prostatic hyperplasia): (6) Aortic stenosis: (7) Squamous cell carcinoma lung: (8) Tobacco use disorder: (9) Peripheral arterial disease: (10) Hyperlipidemia: (11) Hypertension: (12) GERD (gastroesophageal reflux disease): (13) LLQ abdominal pain: CT abd pelvis oral and IV con CLINICAL HISTORY: Left lower quadrant abdominal pain. Heme-positive stools. LUNG CARCINOMA. COMPARISON STUDY: August 2018 TECHNIQUE: The patient was scanned in a dynamic helical fashion during intravenous administration of 94 cc of Optiray 320. A dose lowering technique was utilized adhering to the principles of ALARA. CT DOSE: FINDINGS: Lower chest: There is a persistent right pleural effusion. There are persistent right lower lobe airspace opacities. There is a persistent 7.2 cm fluid collection abutting the right hemidiaphragm containing air bubbles. This is consistent with a cavitary right middle lobe pulmonary mass Liver: The contrast-enhanced liver is normal in size, contour, and attenuation. There is no intrahepatic biliary ductal dilatation. The hepatic veins and portal veins are patent. Gallbladder: Unremarkable. Spleen: Normal in size and attenuation. Pancreas: Unremarkable. Adrenal glands: Unremarkable. Kidneys: There are bilateral renal cysts. There are no solid renal masses. There is no hydronephrosis. Bowel: There is mild fecal retention. There are no transition zones to indicate bowel obstruction. There is no evidence of acute diverticulitis. The appendix appears normal. Peritoneum: There is no free air. There is no ascites. There are bilateral fat- containing inguinal hernias. Vasculature: The abdominal aorta is normal in course and caliber. Adenopathy: None. Pelvic viscera: The prostate is enlarged. Skeletal structures: There is an old T12 compression fracture. IMPRESSION: 1. No evidence of bowel obstruction. No evidence of free air 2. Normal appendix. No evidence of acute diverticulitis 3. Small fat-containing inguinal hernias 4. Prostatomegaly 5. Fecal retention 6. Persistent right pleural effusion with right basilar airspace opacities 7. Persistent 7.2 cm cavitary right middle lobe mass Supervising Physician Co-Signing Physician Notes Attending attestation Pt seen and examined in concert with Dr. Noor. In agreement with the documented findings as noted in the resident documentation with any exceptions or additions as noted here. Stable LLQ pain with 1x loose, watery brown BM in the AM hours. Purported h/o constipation managed at home with small amt of miralax. On evaluation - decreased breath sounds throughout. S1/S2 nl w/ 2/6 GERTRUDE. Persistent LLQ abdominal pain worse with palpation, though present without. Anemia in the setting of SCC on chemotherapy and heme +ve stool with recent EGD - gastroenterology consultation appreciated - s/p 2U PRBC, stable today. Trend H/H. Continue PPI BID. Per gastroenterology team, Dr. Pereira, the patient's primary GI will be on in the AM and re-evaluate for potential endoscopy vs. outpatient evaluation Hyponatremia - SIADH - fluid restriction, trend BMP Aortic stenosis and h/o HF - continue lasix SCC - oncology consultation appreciated - concerned that initial complaint of weakness is associated primarily with reaction to chemotherapy and will have alf goals of care conversation at outpatient follow up prior to next tx. Else see resident documentation as noted. Subjective Patient notes that he is not feeling good today. Reports abdominal pain left lower quadrant and some nausea after eating breakfast. Weakness persistent but able to walk to bathroom today. Also had a liquid dark black/zhao BM Denies any f/c, headache, dizziness, cp, sob, vomiting, dysuria, hematuria Review of Systems Review of Systems: As per HPI Physical Exam Physical Exam: General: In NAD Neuro: A&O x 4 Pulm: CTAB, diminished breath sounds CV: RRR, 2 out of 6 systolic ejection murmur Abdomen:+BS, left lower quadrant TTP, no rebound tenderness LE: trace LE edema, no calf TTP Results & Data Vital Signs (Past 12 Hours) Vital Signs Temp Pulse Pulse Pulse Resp BP BP 03/24/19 11:13 36.9 C 97 H 20 92/61 L 03/24/19 07:33 73 03/24/19 07:00 36.3 C L 76 18 95/56 L 03/24/19 04:00 36.8 C 98 H 18 98/60 L Pulse Ox 03/24/19 11:13 99 03/24/19 07:33 03/24/19 07:00 100 03/24/19 04:00 94 Laboratory Results Abnormal lab results 07/03/24/19 03/24/19 Range/Units 08:27 00:13 06:06 WBC 4.22 L (4.8-10.8) K/uL RBC 3.24 L (4.7-6.1) M/uL Hgb 10.2 L 10.0 L (14.0-18.0) g/dL Hct 29.5 L 30.2 L (42-52) % RDW Std Deviation 57.7 H (36.4-46.3) fL RDW Coeff of Tuan 16.9 H (11.5-14.5) % Plt Count 81 L (130-400) K/uL Lymph # (Auto) 0.43 L (1.2-3.4) K/uL Sodium (136-145) mmol/L Creatinine (0.6-1.4) mg/dl BUN/Creatinine Ratio (10-20) Osmolality (280-300) mOsm/kg Crossmatch See Detail 03/24/19 03/24/19 Range/Units 06:06 07:25 WBC (4.8-10.8) K/uL RBC (4.7-6.1) M/uL Hgb (14.0-18.0) g/dL Hct (42-52) % RDW Std Deviation (36.4-46.3) fL RDW Coeff of Tuan (11.5-14.5) % Plt Count (130-400) K/uL Lymph # (Auto) (1.2-3.4) K/uL Sodium 132 L (136-145) mmol/L Creatinine 0.50 L (0.6-1.4) mg/dl BUN/Creatinine Ratio 23.1 H (10-20) Osmolality 274 L (280-300) mOsm/kg Crossmatch Medications Administered Current Inpatient Medications Acetaminophen (Tylenol) 650 mg PO Q4H PRN PRN Reason: Pain or Fever Stop: 04/21/19 17:44 Last Admin: 03/24/19 10:00 Dose: 650 mg Documented by: Albuterol (Combivent Respimat) 1 puffs INH QIDR [facility] Stop: 04/21/19 17:44 Last Admin: 03/24/19 11:20 Dose: 1 puffs Documented by: Atorvastatin Calcium (Lipitor) 40 mg PO QPM [facility] Stop: 04/22/19 20:59 Last Admin: 03/23/19 22:01 Dose: 40 mg Documented by: Diltiazem HCl (Cardizem Cd) 120 mg PO QAM [facility] Stop: 04/22/19 08:59 Last Admin: 03/24/19 08:08 Dose: Not Given Documented by: Docusate Sodium (Colace) 100 mg PO BID [facility] Stop: 04/23/19 10:59 Last Admin: 03/24/19 11:19 Dose: 100 mg Documented by: Enalapril Maleate (Vasotec) 20 mg PO BID [facility] Stop: 04/21/19 20:59 Last Admin: 03/24/19 08:08 Dose: 20 mg Documented by: Fentanyl (Duragesic) 12 mcg TD Q72H [facility] Stop: 04/05/19 18:59 Last Admin: 03/22/19 20:18 Dose: 12 mcg Documented by: Furosemide (Lasix) 20 mg PO UD PRN PRN Reason: Edema Stop: 04/21/19 17:44 Guaifenesin (Mucinex) 1,200 mg PO BID [facility] Stop: 04/21/19 20:59 Last Admin: 03/24/19 08:09 Dose: 1,200 mg Documented by: Furosemide 10 mg/ Syringe 1 mls @ 4 mls/min IV DAILY PRN PRN Reason: LE swelling Stop: 04/21/19 17:44 Pantoprazole Sodium 40 mg/ (Syringe) 10 mls @ 5 mls/min IV BID@0900,2100 [facility] Stop: 04/21/19 20:59 Last Admin: 03/24/19 08:08 Dose: 5 mls/min Documented by: Ioversol (Optiray 320 100ml) 94 ml IV ONCE PRN PRN Reason: Interaction Checking Stop: 03/27/19 14:46 Last Admin: 03/23/19 14:48 Dose: 94 ml Documented by: Magnesium Hydroxide (Milk Of Magnesia) 30 ml PO Q12H PRN PRN Reason: Constipation Stop: 04/21/19 17:44 Miconazole Nitrate (Desenex) 1 appln EXT PRN PRN PRN Reason: Affected Skin Folds Stop: 04/22/19 20:06 Miscellaneous (Fentanyl Patch Check Placement) 1 ea N/A QS [facility] Stop: 04/22/19 00:00 Last Admin: 03/24/19 08:07 Dose: 1 ea Documented by: Miscellaneous (Fentanyl Patch Remove & Waste) 1 ea N/A Q3D [facility] Stop: 04/24/19 18:59 Miscellaneous (Remove Nicoderm Patch) 1 ea N/A HS [facility] Stop: 04/21/19 20:59 Last Admin: 03/23/19 21:28 Dose: 1 ea Documented by: Miscellaneous (Order Awaiting Action) 1 ea N/A QS [facility] Stop: 04/22/19 00:00 Last Admin: 03/24/19 08:07 Dose: Not Given Documented by: Nicotine (Nicoderm Cq) 21 mg TD QAM [facility] Stop: 04/22/19 08:59 Last Admin: 03/24/19 08:09 Dose: 21 mg Documented by: Ondansetron HCl (Zofran) 4 mg IV Q6H PRN PRN Reason: Nausea Stop: 04/21/19 17:44 Oxycodone HCl (Roxicodone Immediate Rel) 10 mg PO Q6H PRN PRN Reason: Pain Stop: 04/05/19 16:32 Last Admin: 03/24/19 10:00 Dose: 10 mg Documented by: Polyethylene Glycol (Miralax Powder Packet) 17 gm PO DAILY [facility] Stop: 04/23/19 10:59 Last Admin: 03/24/19 11:19 Dose: 17 gm Documented by: PG Care Time/CCT Total # of Minutes Spent Total Time Spent with Patient: Total time spent is greater than 50% in coordination of care (as documented) at patient's floor/unit and/or counseling patient: Resident Activity Tracking Resident Involvement: Resident Care Provided Care Provided: Adult Hospital Medicine (1) BPH (benign prostatic hyperplasia) Lower urinary tract symptom detail: urinary frequency Lower urinary tract symptom presence: symptoms present Qualified Code(s): N40.1 - Benign prostatic hyperplasia with lower urinary tract symptoms; R35.0 - Frequency of micturition (2) Aortic stenosis Cardiac valve disease etiology: etiology unspecified Qualified Code(s): I35.0 - Nonrheumatic aortic (valve) stenosis (3) Hyperlipidemia Hyperlipidemia type: unspecified Qualified Code(s): E78.5 - Hyperlipidemia, unspecified (4) Squamous cell carcinoma lung Laterality: right Qualified Code(s): C34.91 - Malignant neoplasm of unspecified part of right bronchus or lung (5) GERD (gastroesophageal reflux disease) Esophagitis presence: esophagitis presence not specified Qualified Code(s): K21.9 - Gastro-esophageal reflux disease without esophagitis (6) Hypertension Hypertension type: essential hypertension Qualified Code(s): I10 - Essential (primary) hypertension
[2019-03-24] MEDS ORDERED: POLYETHYLENE (MIRALAX) 17 GM PACK PO STA (16:09)
[2019-03-24] MEDS ORDERED: METOPROLOL TARTRATE 1 MG/ML VIAL IV STA (17:57)
[2019-03-24] MEDS: ATORVASTATIN 40 MG TAB PO SCH (20:34)
--- NOTE | 2019-03-24 21:38 | Consultation Report ---
DATE OF CONSULTATION: 03/24/2019 REASON FOR CONSULTATION: Severe anemia. Pleasant 73-year-old gentleman with locally advanced squamous cell carcinoma of the lung. 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 The patient was diagnosed roughly about 5 months ago with a large right-sided solitary cavitary lesion. He was not an optimal clinical candidate and initially recommended chemoradiation for which he deferred. He opted to proceed with radiation therapy upfront and then I placed him on a salvage carboplatin and paclitaxel given in weekly fashion. His last chemotherapy was administered on 03/14/2019. He readily admits over the past couple of days, becoming extremely weak to the point where he was not able to perform activities of daily living. He presented to the Emergency Room and on examination was found to have heme positive stools. Gastroenterology evaluated Mr. Hodges, feels he may benefit from a colonoscopy. He was transfused 2 units of packed RBCs. He is awake, alert and appropriate this morning. He states that he continues to have his left lower quadrant abdominal pain which usually occurs postprandially. Sometimes gets relief after defecation. He reports no fidencio rectal bleeding, but apparently had heme positive stools on examination in the Emergency Room. PAST MEDICAL HISTORY: Includes chronic diastolic congestive heart failure, aortic stenosis, squamous cell carcinoma of the lung, history of alcoholism, varicose veins, tobacco use disorder, peripheral vascular disease, hyperlipidemia, hypertension, gastroesophageal reflux disease, COPD, BPH, Cdtvxzo-Tgbkf-Ircps disease, chronic back pain, gout, conductive hearing deficit, hypertension and osteoarthritis. PAST SURGICAL HISTORY: Includes colonoscopy, left-sided carotid endarterectomy, right knee surgery, tooth extraction, foot surgery and thoracentesis. MEDICATIONS: Prior to admission include atorvastatin 40 mg p.o. daily, Cholecalciferol 2000 units p.o. daily, enalapril 20 mg p.o. b.i.d., furosemide 20 mg p.o. daily, Mucinex 1200 mg p.o. b.i.d., mometasone inhaler 100/5 mcg 2 puffs inhaled daily, diltiazem CD 120 mg p.o. daily, omeprazole 40 mg p.o. daily, Ipratropium/albuterol 1 puff inhaled q.i.d., acetaminophen 500 mg p.o. q. 6, fentanyl 1 patch transdermally q. 72 hours, oxycodone 10 mg p.o. as directed p.r.n. ALLERGIES: HYDROCHLOROTHIAZIDE AND DOXYCYCLINE. SOCIAL HISTORY: The patient is and lives with his oldest son as well. He is a several pack year smoker. He stopped drinking several years ago. Negative for illicit drugs. FAMILY HISTORY: Positive for diabetes and cardiovascular disease. REVIEW OF SYSTEMS: CONSTITUTIONAL: As per HPI, most notably for asthenia, fatigue, generalized weakness. Negative for fevers, chills or sweats. His appetite has been marginal. Denies overt weight loss. SKIN: No rashes or lesions. No history of dermatoses. HEENT: Negative for headaches, lightheadedness or dizziness. No visual or hearing deficits. No sinus symptoms, sore throat or dysphagia. LYMPH: No history of lymphoproliferative disease. CARDIAC: No history of coronary artery disease, no angina or palpitations presently. PULMONARY: Positive for oxygen-dependent COPD. He is not acutely short of breath or dyspneic. He denies hemoptysis at this time. GASTROINTESTINAL: Mainly positive for left lower quadrant abdominal pain and occasional diarrhea. Positive for cramping. The Emergency Room reports a heme positive stools. He denies fidencio rectal bleeding or hematochezia otherwise. GENITOURINARY: No hematuria, dysuria, or urinary incontinence. PSYCHIATRIC: Negative for anxiety, depression or psychosis. ENDOCRINE: Negative for diabetes or thyroid disease. NEUROLOGIC: Negative for seizure, stroke, or migraine headache. HEMATOLOGIC: Positive for dyspnea. PHYSICAL EXAMINATION: GENERAL: Very pleasant 73-year-old gentleman. Awake, alert and appropriate, in no acute distress. VITAL SIGNS: Temperature 36.3, pulse 73, respiratory rate 18, blood pressure 95/56. SKIN: Warm, dry, noncyanotic with petechia, rash or ecchymosis. HEENT: Head atraumatic, normocephalic. Eyes: PERRLA, EOMI. Sclerae nonicteric. No conjunctival injection. Nares are patent without rhinorrhea or discharge. Throat is clear. Tongue is midline. Mucous membranes are moist. NECK: Supple without JVD or thyromegaly. LYMPH: No cervical or supraclavicular palpable nodes. HEART: Regular rate and rhythm. No clicks, rubs, murmurs or gallops. LUNGS: Tubular breath sounds in the right posterior chest. No rales or rhonchi appreciated otherwise. ABDOMEN: Soft, nontender, nondistended. No palpable hepatosplenomegaly. EXTREMITIES: No clubbing, cyanosis or edema. NEUROLOGICAL: He is awake, alert and oriented x3. Cranial nerves are grossly intact. LABORATORY DATA: WBC count 4220, hemoglobin 10, platelet count 81,000. Sodium 132, potassium 4.5, chloride 101, carbon dioxide 28, BUN 12, creatinine 0.5. RADIOGRAPHIC DATA: CT scan of the abdomen and pelvis reveals no evidence of bowel obstruction or free air. Prostatomegaly is noted, fecal retention is also noted and the persistent right pleural effusion and persistent 7.2 right middle lobe cavitary mass. IMPRESSION: 1. Anemia, most likely attributable to chemotherapy. However, gastrointestinal bleeding is not ruled out exclusively. 2. Locally advanced squamous cell carcinoma of the lung. 3. Oxygen-dependent chronic obstructive pulmonary disease. 4. Asthenia. 5. Aortic stenosis. 6. Hypertension. IMPRESSION: I have been asked to evaluate Shay since being admitted 2 days ago for asthenia and anemia. Shya was diagnosed with locally advanced squamous cell carcinoma several months ago and opted to proceed with sequential radiation therapy followed by weekly carboplatin and paclitaxel. He began cycle #3 on 03/14/2019. Since that time has been declining steadily. He presented with a hemoglobin of 8.4 with heme positive stools. Conceivably, he may have a mild gastrointestinal bleed but I would agree with Gastroenterology his myelosuppression is probably more of a function of ongoing chemotherapy. With his pulmonary disease, we would try to maintain hemoglobin in the 10 gram per deciliter range. We will also engage in serious discussion on where we go from here therapeutically. Chemo has brought on a fair amount of intrusion in Shay's life quality and therefore he may opt for further dose reduction versus suspension of treatment altogether. I do not have an explanation for his left lower quadrant abdominal pain. Paclitaxel in itself can cause various GI effects including constipation which might explain his fecal impaction along with opioid therapy. Would definitely incorporate an aggressive bowel regimen as this may help with the abdominal pain. I plan to reconvene with Shay regarding treatment moving forward once he is medically stable and discharged. I agree with medical management otherwise. We will continue to follow him periodically during his stay. Thank you very much for allowing me to participate in Shay's care.
[2019-03-25] MEDS: ACETAMINOPHEN 325 MG TAB PO PRN ×4 (00:45→21:01)
[2019-03-25] MEDS: CHECK FENTANYL PATCH PLACEMENT SCH ×4 (00:46→23:21)
[2019-03-25] MEDS ORDERED: HYDROmorphone INJ 1 MG/ML SYRINGE IV STA (04:29)
[2019-03-25 06:55] LABS: Hematocrit (blood only) 28.5 % (42-52); Hemoglobin 9.6 g/dL (14.0-18.0); Mean Corpuscular Hgb Conc 33.7 g/dL (32-36); Mean Corpuscular Volume 93.8 fL (80-100); RDW Coefficient of Variation 16.5 % (11.5-14.5); RDW Standard Deviation 56.7 fL (36.4-46.3); Red Blood Count 3.04 M/uL (4.7-6.1); White Blood Count 4.36 K/uL (4.8-10.8)
[2019-03-25 07:04] LABS: Mean Platelet Volume 8.7 fL (7.4-10.4); Platelet Count 80 K/uL (130-400)
--- NOTE | 2019-03-25 07:13 | Family Medicine Progress Note ---
Date of Service March 25, 2019 Assessment & Plan (1) COPD (chronic obstructive pulmonary disease): (2) Weakness: #Weakness and LLQ abdominal pain Likely related to anemia vs. recent chemo with associated nausea and thus poor PO intake vs. hyponatremia Heme + in ED. Hb 8.4 on admission, downtrended to 7.7 on 03/23, received 2 upRBC. Cardiac work up: Trop neg, EKG WNL. Infectious work up: WBC wnl, Abdominal CT with no concern for acute infection, UA neg, CXR neg for infection. On 03/[address] abdomen was obtained negative for bowel obstruction, negative for appendicitis/diverticulitis, small fat-containing inguinal hernias, prostamegaly, fecal retention, persistent right pleural effusion, 7.2 cm cavitary right middle lobe mass. -GI consulted: Recent EGD on 02/13 with gastritis and neg bx. Dr. Valentine - recommended colonoscopy in the near future given heme+ stool. Evaluated for colonoscopy today. Patient does not feel he can complete the prep. Colonoscopy deferred. Continue with supportive care including bowel regimen and blood transfusions as needed -Oncology consulted:Myelosuppression is probably more a function of ongoing chemotherapy. Given pulmonary disease would try to maintain hemoglobin greater than 10. Goals of care discussions. Incorporated aggressive bowel regimen, paclitaxel can cause various GI effects -Trend H/H and transfuse if < 8 given hx of aortic stenosis -Protonix BID push #COPD Patient has a history of COPD, on oxygen at home, and carries a diagnosis of small cell lung cancer. During my examination this morning the patient was consistently coughing, and appeared to be struggling to catch his breath. Patient is only on albuterol and ipratropium at home. -Home inhalers on hold -Scheduled duo nebs 4 times daily -Budesonide 0.5mg twice daily -Consider initiating daily Pred versus daily azithromycin Constipation - likely causing LLQ abdomindal pain Found to have fecal retention on CT abdomen on 03/23 -Continue MiraLAX and Colace twice daily -Started Relistor Hyponatremia: 127 on admission, likely related to poor PO intake vs. SIADH in the setting of SCC of lung Improved to 134 with IVFs on 03/23, Today 134 -Serum Osm 274, urine osm 538, Na 105 -Urine OSM is not consistent with SIADH presentation likely secondary to poor nutrition Continue to monitor BMP #Hypertension/HLD/Aortic Stenosis/Diastolic CHF: Continue enalapril, diltiazem, Lasix PRN, atorvastatin. Patient was hypotensive on 03/25, Cardizem and Vasotec were held. -LR @125 cc -Monitor for si/sx of fluid overload Chronic Pain: 2/2 to cancer Continue PRN oxycodone and fentanyl patch Squamous cell carcinoma lung: Finished radiation with Dr. Jaylen Colon, last chemo was 03/07 Heme/Onc consulted - Dr. Wu Follow up in office at the end of the month to discuss care GERD (gastroesophageal reflux disease): On Protonix BID Hold home med Diet: Heart Healthy DVT prophylaxis: SCDs only 10/06 to suspected GI bleed Code: DNR/DNI Dispo: med surg (3) Symptomatic anemia: (4) Hyponatremia: (5) BPH (benign prostatic hyperplasia): (6) Aortic stenosis: (7) Squamous cell carcinoma lung: (8) Tobacco use disorder: (9) Peripheral arterial disease: (10) Hyperlipidemia: (11) Hypertension: (12) GERD (gastroesophageal reflux disease): (13) LLQ abdominal pain: CT abd pelvis oral and IV con CLINICAL HISTORY: Left lower quadrant abdominal pain. Heme-positive stools. LUNG CARCINOMA. COMPARISON STUDY: August 2018 TECHNIQUE: The patient was scanned in a dynamic helical fashion during intravenous administration of 94 cc of Optiray 320. A dose lowering technique was utilized adhering to the principles of ALARA. CT DOSE: FINDINGS: Lower chest: There is a persistent right pleural effusion. There are persistent right lower lobe airspace opacities. There is a persistent 7.2 cm fluid collection abutting the right hemidiaphragm containing air bubbles. This is consistent with a cavitary right middle lobe pulmonary mass Liver: The contrast-enhanced liver is normal in size, contour, and attenuation. There is no intrahepatic biliary ductal dilatation. The hepatic veins and portal veins are patent. Gallbladder: Unremarkable. Spleen: Normal in size and attenuation. Pancreas: Unremarkable. Adrenal glands: Unremarkable. Kidneys: There are bilateral renal cysts. There are no solid renal masses. There is no hydronephrosis. Bowel: There is mild fecal retention. There are no transition zones to indicate bowel obstruction. There is no evidence of acute diverticulitis. The appendix appears normal. Peritoneum: There is no free air. There is no ascites. There are bilateral fat- containing inguinal hernias. Vasculature: The abdominal aorta is normal in course and caliber. Adenopathy: None. Pelvic viscera: The prostate is enlarged. Skeletal structures: There is an old T12 compression fracture. IMPRESSION: 1. No evidence of bowel obstruction. No evidence of free air 2. Normal appendix. No evidence of acute diverticulitis 3. Small fat-containing inguinal hernias 4. Prostatomegaly 5. Fecal retention 6. Persistent right pleural effusion with right basilar airspace opacities 7. Persistent 7.2 cm cavitary right middle lobe mass Supervising Physician Co-Signing Physician Notes I personally examined the patient and verified all ramírez points of history and exam, discussed case, and agree with decision making with Dr Ureña. Generally feeling better, still weak. Agrees with the idea of a rehab placement. Vitals noted, in general he is awake and alert pleasant no distress. HEENT normocephalic atraumatic mucous membranes moist. Breathing unlabored no accessory muscle use good effort. Skin shows no rashes no pallor or icterus. Weaknessmultifactorial but improving. For rehab placement when possible. Chronic hypoxic respiratory failurecontinue oxygen/supportive care DVT prophylaxispharmacologic of concern due to his anemia and heme positive stools. Subjective Patient laying in bed this morning in no acute distress when I arrived. Patient reports no significant interval history overnight. Of note patient is slightly confused, hard of hearing and having difficulty responding to questions. Patient still endorses constipation however no pain. Patient was coughing significantly throughout our interaction. Currently on 2 L nasal cannula patient reports this is his oxygen usage at home. Patient is tolerating his diet, voiding, no bowel movement, sleeping well.patient reports he spoke with the card runner this morning and they are not going to proceed with a colonoscopy. Physical Exam Physical Exam: General: No acute distress HEENT: Normocephalic atraumatic Neck: Normal visual inspection, trachea midline, did not appreciate any JVD Cardiac: Regular rate and rhythm, normal S1, normal S2, negative pedal edema, negative calf tenderness, and did not appreciate any murmurs rubs or gallops Respiratory: Restricted air movement, rhonchorous throughout all lung navarrete, clears somewhat with coughing, did not appreciate significant rales some wheezes. GI: Tender to palpation of left lower quadrant otherwise normal bowel sounds, soft MSK: Moves all extremities Skin: No new rashes Neuro: Alert and oriented although slightly confused Psych: Cooperative Results & Data Vital Signs (Past 12 Hours) Vital Signs Temp Pulse Pulse Resp BP Pulse Ox 03/25/19 04:00 36.3 C L 83 20 103/71 93 03/25/19 02:07 91 H 03/25/19 00:00 36.6 C 104 H 18 107/70 93 03/24/19 22:45 88 L Laboratory Results 03/25/19 03/25/19 03/24/19 Range/Units 06:10 06:10 09:30 WBC 4.36 L (4.8-10.8) K/uL RBC 3.04 L (4.7-6.1) M/uL Hgb 9.6 L (14.0-18.0) g/dL Hct 28.5 L (42-52) % MCV 93.8 (80-100) fL MCH 31.6 (25-34) pg MCHC 33.7 (32-36) g/dL RDW Std Deviation 56.7 H (36.4-46.3) fL RDW Coeff of Tuan 16.5 H (11.5-14.5) % Plt Count 80 L (130-400) K/uL MPV 8.7 (7.4-10.4) fL Immature Gran % (Auto) 0.2 % Neut % (Auto) 76.6 % Lymph % (Auto) 11.5 % [place] % (Auto) 11.5 % Eos % (Auto) 0.2 % Baso % (Auto) 0.0 % Immature Gran # (Auto) 0.01 (0.00-0.02) K/uL Neut # (Auto) 3.34 (1.4-6.5) K/uL Lymph # (Auto) 0.50 L (1.2-3.4) K/uL [place] # (Auto) 0.50 (0.11-0.59) K/uL Eos # (Auto) 0.01 (0-0.5) K/uL Baso # (Auto) 0.00 (0-0.2) K/uL Sodium 134 L (136-145) mmol/L Potassium 4.3 (3.5-5.1) mmol/L Chloride 101 (98-107) mmol/L Carbon Dioxide 27 (21-32) mmol/L Anion Gap 6.0 (3-11) BUN 14 (7-18) mg/dl Creatinine 0.59 L (0.6-1.4) mg/dl Est Cr Clr Drug Dosing 104.7 ml/min Est GFR ( Amer) 114.8 Est GFR (Non-Af Amer) 99.0 BUN/Creatinine Ratio 23.8 H (10-20) Glucose 98 (70-99) mg/dl Calcium 8.2 L (8.5-10.1) mg/dl Urine Osmolality (500-800) mOsm/kg Ur Random Sodium 105 mmol/L 03/24/19 Range/Units 09:30 WBC (4.8-10.8) K/uL RBC (4.7-6.1) M/uL Hgb (14.0-18.0) g/dL Hct (42-52) % MCV (80-100) fL MCH (25-34) pg MCHC (32-36) g/dL RDW Std Deviation (36.4-46.3) fL RDW Coeff of Tuan (11.5-14.5) % Plt Count (130-400) K/uL MPV (7.4-10.4) fL Immature Gran % (Auto) % Neut % (Auto) % Lymph % (Auto) % [place] % (Auto) % Eos % (Auto) % Baso % (Auto) % Immature Gran # (Auto) (0.00-0.02) K/uL Neut # (Auto) (1.4-6.5) K/uL Lymph # (Auto) (1.2-3.4) K/uL [place] # (Auto) (0.11-0.59) K/uL Eos # (Auto) (0-0.5) K/uL Baso # (Auto) (0-0.2) K/uL Sodium (136-145) mmol/L Potassium (3.5-5.1) mmol/L Chloride (98-107) mmol/L Carbon Dioxide (21-32) mmol/L Anion Gap (3-11) BUN (7-18) mg/dl Creatinine (0.6-1.4) mg/dl Est Cr Clr Drug Dosing ml/min Est GFR ( Amer) Est GFR (Non-Af Amer) BUN/Creatinine Ratio (10-20) Glucose (70-99) mg/dl Calcium (8.5-10.1) mg/dl Urine Osmolality 538 (500-800) mOsm/kg Ur Random Sodium mmol/L Medications Administered Current Inpatient Medications Acetaminophen (Tylenol) 650 mg PO Q4H PRN PRN Reason: Pain or Fever Stop: 04/21/19 17:44 Last Admin: 03/25/19 00:45 Dose: 650 mg Documented by: Albuterol (Combivent Respimat) 1 puffs INH QIDR PRISCA Stop: 04/21/19 17:44 Last Admin: 03/25/19 09:45 Dose: 1 puffs Documented by: Albuterol (Duoneb) 3 ml NEB QIDR PRISCA Stop: 04/24/19 11:59 Atorvastatin Calcium (Lipitor) 40 mg PO QPM PRISCA Stop: 04/22/19 20:59 Last Admin: 03/24/19 20:34 Dose: 40 mg Documented by: Budesonide (Pulmicort Respules) 0.5 mg NEB BIDR [facility] Stop: 04/24/19 19:59 Diltiazem HCl (Cardizem Cd) 120 mg PO QAM [facility] Stop: 04/22/19 08:59 Last Admin: 03/25/19 09:44 Dose: Not Given Documented by: Docusate Sodium (Colace) 100 mg PO BID [facility] Stop: 04/23/19 10:59 Last Admin: 03/25/19 09:45 Dose: 100 mg Documented by: Enalapril Maleate (Vasotec) 20 mg PO BID [facility] Stop: 04/21/19 20:59 Last Admin: 03/25/19 09:38 Dose: Not Given Documented by: Fentanyl (Duragesic) 12 mcg TD Q72H [facility] Stop: 04/05/19 18:59 Last Admin: 03/22/19 20:18 Dose: 12 mcg Documented by: Furosemide (Lasix) 20 mg PO UD PRN PRN Reason: Edema Stop: 04/21/19 17:44 Guaifenesin (Mucinex) 1,200 mg PO BID [facility] Stop: 04/21/19 20:59 Last Admin: 03/25/19 09:44 Dose: 1,200 mg Documented by: Furosemide 10 mg/ Syringe 1 mls @ 4 mls/min IV DAILY PRN PRN Reason: LE swelling Stop: 04/21/19 17:44 Pantoprazole Sodium 40 mg/ (Syringe) 10 mls @ 5 mls/min IV BID@0900,2100 [facility] Stop: 04/21/19 20:59 Last Admin: 03/25/19 09:45 Dose: 5 mls/min Documented by: Lactated Ringer's (Lr) 1,000 mls @ 125 mls/hr IV .Q8H PRISCA Stop: 04/24/19 10:14 Ioversol (Optiray 320 100ml) 94 ml IV ONCE PRN PRN Reason: Interaction Checking Stop: 03/27/19 14:46 Last Admin: 03/23/19 14:48 Dose: 94 ml Documented by: Magnesium Hydroxide (Milk Of Magnesia) 30 ml PO Q12H PRN PRN Reason: Constipation Stop: 04/21/19 17:44 Methylnaltrexone [place] (Relistor) 12 mg SQ Q2D PRISCA Stop: 04/24/19 11:59 Miconazole Nitrate (Desenex) 1 appln EXT PRN PRN PRN Reason: Affected Skin Folds Stop: 04/22/19 20:06 Miscellaneous (Fentanyl Patch Check Placement) 1 ea N/A QS [facility] Stop: 04/22/19 00:00 Last Admin: 03/25/19 09:43 Dose: 1 ea Documented by: Miscellaneous (Fentanyl Patch Remove & Waste) 1 ea N/A Q3D [facility] Stop: 04/24/19 18:59 Miscellaneous (Remove Nicoderm Patch) 1 ea N/A HS [facility] Stop: 04/21/19 20:59 Last Admin: 03/24/19 20:35 Dose: 1 ea Documented by: Miscellaneous (Order Awaiting Action) 1 ea N/A QS [facility] Stop: 04/22/19 00:00 Last Admin: 03/25/19 09:37 Dose: 1 ea Documented by: Nicotine (Nicoderm Cq) 21 mg TD QAM [facility] Stop: 04/22/19 08:59 Last Admin: 03/25/19 09:44 Dose: 21 mg Documented by: Ondansetron HCl (Zofran) 4 mg IV Q6H PRN PRN Reason: Nausea Stop: 04/21/19 17:44 Oxycodone HCl (Roxicodone Immediate Rel) 10 mg PO Q6H PRN PRN Reason: Pain Stop: 04/05/19 16:32 Last Admin: 03/25/19 09:56 Dose: 10 mg Documented by: Polyethylene Glycol (Miralax Powder Packet) 17 gm PO BID PRISCA Stop: 04/24/19 08:59 Last Admin: 03/25/19 09:37 Dose: 17 gm Documented by: PG Care Time/CCT Total # of Minutes Spent Total Time Spent with Patient: Total time spent is greater than 50% in coordination of care (as documented) at patient's floor/unit and/or counseling patient: Resident Activity Tracking Resident Involvement: Resident Care Provided Care Provided: Adult [facility] Medicine (1) BPH (benign prostatic hyperplasia) Lower urinary tract symptom detail: urinary frequency Lower urinary tract symptom presence: symptoms present Qualified Code(s): N40.1 - Benign prostatic hyperplasia with lower urinary tract symptoms; R35.0 - Frequency of micturition (2) Aortic stenosis Cardiac valve disease etiology: etiology unspecified Qualified Code(s): I35.0 - Nonrheumatic aortic (valve) stenosis (3) Hyperlipidemia Hyperlipidemia type: unspecified Qualified Code(s): E78.5 - Hyperlipidemia, unspecified (4) Squamous cell carcinoma lung Laterality: right Qualified Code(s): C34.91 - Malignant neoplasm of unspecified part of right bronchus or lung (5) GERD (gastroesophageal reflux disease) Esophagitis presence: esophagitis presence not specified Qualified Code(s): K21.9 - Gastro-esophageal reflux disease without esophagitis (6) Hypertension Hypertension type: essential hypertension Qualified Code(s): I10 - Essential (primary) hypertension
[2019-03-25 07:33] LABS: BUN Creatinine Ratio 23.8 (10-20); Calcium 8.2 mg/dl (8.5-10.1); Creatinine Clr Calc Pharmacy 104.7 ml/min; Est GFR (African American) 114.8; Potassium 4.3 mmol/L (3.5-5.1)
[2019-03-25 07:53] LABS: Eosinophils # (auto) 0.01 K/uL (0-0.5); Eosinophils % (auto) 0.2 %; Immature Granulocytes # (auto) 0.01 K/uL (0.00-0.02); Immature Granulocytes % (auto) 0.2 %; Lymphocytes % (auto) 11.5 %; Monocytes % (auto) 11.5 %; Neutrophils # (auto) 3.34 K/uL (1.4-6.5); Neutrophils % (auto) 76.6 %
--- NOTE | 2019-03-25 08:59 | Gastroenterology Progress Note ---
Date of Service March 25, 2019 Assessment & Plan (1) Symptomatic anemia: Patient is a 73 yo male with SCC of the lung with anemia. Recent EGD indicated gastritis. Anemia likely from chemotherapy. Patient reports that he does not feel physically capable of prepping/undergoing a colonoscopy which is reasonable given his overall clinical picture. We will defer any further invasive work-up. Continue him on his bowel regimen and continue to monitor H/H and transfuse supportively. Thank you for allowing us to participate in the care of this patient. We will sign off at this time. Present on Admission?: Yes Supervising Physician Co-Signing Physician Notes Agree with FREDRICK Herndon as above Abd: Soft, NT, ND,+BS Continue current therapy No plans for invasive workup at this time Subjective Patient is a 73 yo male with a squamous cell carcinoma of the lung. GI has been consulted for anemia. It has been mentioned by oncology that the likely causes of this is his chemotherapy. The patient reports he moved his bowels this morning and has no abdominal pain. He reports he feels more short of breath than yesterday. He does not wish to undergo a colonoscopy as he does not feel that he is physically up to it. His H/H is 9.6/28.5. Review of Systems Constitutional: no fever and no chills Respiratory: + dyspnea Cardiovascular: no chest pain Gastrointestinal: no abdominal pain, no blood in stools and no melena Physical Exam Constitutional: WD/WN, vitals as above Eyes: PERRL, conjunctivae normal, anicteric sclerae Respiratory: + labored breathing; + abnormal respiratory effort Cardiovascular: RRR, no murmur, no edema Gastrointestinal (Abdomen): normal bowel sounds, soft, nontender, no hepatosplenomegaly Results & Data Vital Signs (Past 12 Hours) Vital Signs Temp Pulse Pulse Resp BP Pulse Ox 03/25/19 07:33 36.6 C 77 16 95 03/25/19 04:00 36.3 C L 83 20 103/71 93 03/25/19 02:07 91 H 03/25/19 00:00 36.6 C 104 H 18 107/70 93 03/24/19 22:45 88 L
[2019-03-25] MEDS ORDERED: DOCUSATE SODIUM 100 MG CAP PO SCH (09:00)
[2019-03-25] MEDS: POLYETHYLENE (MIRALAX) 17 GM PACK PO SCH ×2 (09:37→20:44)
[2019-03-25] MEDS: ENALAPRIL MALEATE 10 MG TAB PO SCH ×2 (09:38→20:42)
[2019-03-25] MEDS: guaiFENesin 600 MG TABCR PO SCH ×2 (09:44→20:43)
[2019-03-25] MEDS: NICOTINE 21 MG/24 HR TDSY TD SCH (09:44)
[2019-03-25] MEDS: dilTIAZem HCL 120 MG CAPCR PO SCH (09:44)
[2019-03-25] MEDS: IPRATROPIUM BROMIDE/ALBUTEROL respimat INH INH SCH (09:45)
[2019-03-25] MEDS: PANTOprazole 40 MG in SYRINGE 0 ML IV SCH ×2 (09:45→21:02)
[2019-03-25] MEDS: DOCUSATE SODIUM 100 MG CAP PO SCH ×2 (09:45→20:43)
[2019-03-25] MEDS: OXYCODONE HCL IR 5 MG TAB (IMMEDIATE RELEASE) PO PRN ×3 (09:56→23:21)
[2019-03-25] MEDS: ALBUT/IPRATROP 3MG/0.5MG NEB 3 ML VIAL NEB SCH ×3 (11:24→19:33)
[2019-03-25] MEDS: METHYLNALTREXONE BROMIDE 12 MG/0.6 ML VIAL SQ SCH (11:57)
[2019-03-25] MEDS: LACTATED RINGER'S 1,000 ML IV SCH ×2 (11:57→20:44)
[2019-03-25] MEDS: fentaNYL 12 MCG/HR TDSY TD SCH (17:49)
[2019-03-25] MEDS: BUDESONIDE 0.5 MG/2 ML VIAL (PULMICORT) NEB SCH (19:33)
[2019-03-25] MEDS: ATORVASTATIN 40 MG TAB PO SCH (20:43)
[2019-03-26] MEDS: ACETAMINOPHEN 325 MG TAB PO PRN ×3 (03:00→23:23)
[2019-03-26] MEDS: LACTATED RINGER'S 1,000 ML IV SCH ×2 (03:02→11:00)
[2019-03-26] MEDS: ALBUT/IPRATROP 3MG/0.5MG NEB 3 ML VIAL NEB SCH ×4 (07:03→19:41)
[2019-03-26] MEDS: BUDESONIDE 0.5 MG/2 ML VIAL (PULMICORT) NEB SCH ×2 (07:03→19:41)
[2019-03-26] MEDS: CHECK FENTANYL PATCH PLACEMENT SCH ×3 (08:08→23:25)
[2019-03-26] MEDS: ENALAPRIL MALEATE 10 MG TAB PO SCH ×2 (08:09→20:35)
[2019-03-26] MEDS: dilTIAZem HCL 120 MG CAPCR PO SCH (08:09)
[2019-03-26] MEDS: NICOTINE 21 MG/24 HR TDSY TD SCH (08:10)
[2019-03-26] MEDS: PANTOprazole 40 MG in SYRINGE 0 ML IV SCH ×2 (08:10→20:34)
[2019-03-26] MEDS: DOCUSATE SODIUM 100 MG CAP PO SCH ×2 (08:10→20:32)
[2019-03-26] MEDS: POLYETHYLENE (MIRALAX) 17 GM PACK PO SCH ×2 (08:11→20:34)
[2019-03-26] MEDS: guaiFENesin 600 MG TABCR PO SCH ×2 (08:11→20:33)
--- NOTE | 2019-03-26 08:26 | Family Medicine Progress Note ---
Date of Service March 26, 2019 Assessment & Plan (1) Weakness: #Weakness and LLQ abdominal pain Likely related to anemia vs. recent chemo with associated nausea and thus poor PO intake vs. hyponatremia Heme + in ED. Hb 8.4 on admission, downtrended to 7.7 on 03/23, received 2 upRBC. Cardiac work up: Trop neg, EKG WNL. Infectious work up: WBC wnl, Abdominal CT with no concern for acute infection, UA neg, CXR neg for infection. On 03/[address] abdomen was obtained negative for bowel obstruction, negative for appendicitis/diverticulitis, small fat-containing inguinal hernias, prostamegaly, fecal retention, persistent right pleural effusion, 7.2 cm cavitary right middle lobe mass. -GI consulted: Recent EGD on 02/13 with gastritis and neg bx. Dr. Valentine - recommended colonoscopy in the near future given heme+ stool. Evaluated for colonoscopy today. Patient does not feel he can complete the prep. Colonoscopy deferred. Continue with supportive care including bowel regimen and blood transfusions as needed -Oncology consulted:Myelosuppression is probably more a function of ongoing chem otherapy. Given pulmonary disease would try to maintain hemoglobin greater than 10. Goals of care discussions. Incorporated aggressive bowel regimen, paclitaxel can cause various GI effects -Trend H/H and transfuse if < 8 given hx of aortic stenosis -Protonix BID push #COPD Patient has a history of COPD, on oxygen at home, and carries a diagnosis of small cell lung cancer. During my examination this morning the patient was consistently coughing, and appeared to be struggling to catch his breath. Patient is only on albuterol and ipratropium at home. Improving on new regimen of budesonide. -Home inhalers on hold -Scheduled duo nebs 4 times daily -Budesonide 0.5mg twice daily -Consider initiating daily Pred versus daily azithromycin will defer to outpatient #Constipation - likely causing LLQ abdomindal pain Found to have fecal retention on CT abdomen on 03/23. Significant improvement status post Relistor, would continue on discharge -Continue MiraLAX and Colace twice daily -Started Relistor #Hyponatremia: 127 on admission, likely related to poor PO intake vs. SIADH in the setting of SCC of lung, Improved to 134 with IVFs on 03/23, Today 138 -Serum Osm 274, urine osm 538, Na 105 -Urine OSM is not consistent with SIADH presentation likely secondary to poor nutrition -Trend BMP #Hypertension/HLD/Aortic Stenosis/Diastolic CHF: Continue enalapril, diltiazem, Lasix PRN, atorvastatin. Patient was hypotensive on 03/25, Cardizem and Vasotec were held. -Monitor for si/sx of fluid overload -Stopped MIVF Chronic Pain: 2/2 to cancer Continue PRN oxycodone and fentanyl patch -Squamous cell carcinoma lung: -Finished radiation with Dr. Jaylen Colon, last chemo was 03/07 -Heme/Onc consulted - Dr. Wu Follow up in office at the end of the month to discuss care GERD (gastroesophageal reflux disease): -On Protonix BID -Hold home med Diet: Heart Healthy DVT prophylaxis: SCDs only 10/06 to suspected GI bleed Code: DNR/DNI Dispo: Discharged pending placement Supervising Physician Co-Signing Physician Notes I personally examined the patient and verified all ramírez points of history and exam, discussed case, and agree with decision making with Dr Ureña. feeling about the same. awaiting rehab placement Vitals noted, in general he is awake and alert pleasant no distress. HEENT normocephalic atraumatic mucous membranes moist. Breathing unlabored no accessory muscle use good effort. Skin shows no rashes no pallor or icterus. Weaknessmultifactorial but improving. For rehab placement when possible, awaiting approvals/bed availability. Chronic hypoxic respiratory failurecontinue oxygen/supportive care, stable in this regard DVT prophylaxispharmacologic held out of concern due to his anemia and heme positive stools. he is ambulatory Subjective Patient sitting at this morning in no acute distress. Patient reports improvement in his pulmonary symptoms, coughing less, better exercise tolerance, less dyspnea on exertion, status post initiation of budesonide and DuoNeb's. I think that given his patient's prognosis and potential for complications it would be reasonable to consider daily dose of prednisone and/or azithromycin. Patient also reports significant improvement in his constipation status post initiation of Relistor, I believe he should continue this as an outpatient. 3 bowel movements yesterday, tolerating his diet, voiding, sleeping. Patient is medically stable and awaiting placement, no acute concerns all questions a nswered Physical Exam Physical Exam: General: No acute distress HEENT: Normocephalic atraumatic Neck: Normal visual inspection, trachea midline, did not appreciate any JVD Cardiac: Regular rate and rhythm, normal S1, normal S2, negative pedal edema, negative calf tenderness, and did not appreciate any murmurs rubs or gallops Respiratory: Lung exam improved from yesterday , intermittently restricted air movement, rhonchorous throughout all lung navarrete, clears somewhat with coughing, did not appreciate significant rales some wheezes. GI: Normal bowel sounds soft, nontender, nondistended MSK: Moves all extremities Skin: No new rashes Neuro: Alert and oriented although slightly confused Psych: Cooperative Results & Data Vital Signs (Past 12 Hours) Vital Signs Temp Pulse Pulse Pulse Resp BP Pulse Ox 03/26/19 07:35 99 H 03/26/19 07:30 36.5 C 76 18 119/68 100 03/26/19 07:07 72 16 92 03/26/19 04:37 36.8 C 80 20 104/62 97 03/26/19 01:35 106 H 03/25/19 23:53 36.8 C 90 18 92 03/25/19 23:18 77 103/55 L 03/25/19 20:48 90 103/66 Laboratory Results 03/26/19 Range/Units 09:54 Sodium 138 (136-145) mmol/L Potassium 3.8 (3.5-5.1) mmol/L Chloride 104 (98-107) mmol/L Carbon Dioxide 27 (21-32) mmol/L Anion Gap 8.0 (3-11) BUN 13 (7-18) mg/dl Creatinine 0.51 L (0.6-1.4) mg/dl Est Cr Clr Drug Dosing 121.1 ml/min Est GFR ( Amer) 121.9 Est GFR (Non-Af Amer) 105.2 BUN/Creatinine Ratio 25.0 H (10-20) Glucose 80 (70-99) mg/dl Calcium 8.6 (8.5-10.1) mg/dl Medications Administered Current Inpatient Medications Acetaminophen (Tylenol) 650 mg PO Q4H PRN PRN Reason: Pain or Fever Stop: 04/21/19 17:44 Last Admin: 03/26/19 03:00 Dose: 650 mg Documented by: Albuterol (Combivent Respimat) 1 puffs INH QIDR [facility] Stop: 04/21/19 17:44 Last Admin: 03/25/19 09:45 Dose: 1 puffs Documented by: Albuterol (Duoneb) 3 ml NEB QIDR [facility] Stop: 04/24/19 11:59 Last Admin: 03/26/19 11:51 Dose: Not Given Documented by: Atorvastatin Calcium (Lipitor) 40 mg PO QPM [facility] Stop: 04/22/19 20:59 Last Admin: 03/25/19 20:43 Dose: 40 mg Documented by: Budesonide (Pulmicort Respules) 0.5 mg NEB BIDR [facility] Stop: 04/24/19 19:59 Last Admin: 03/26/19 07:03 Dose: 0.5 mg Documented by: Diltiazem HCl (Cardizem Cd) 120 mg PO QAM [facility] Stop: 04/22/19 08:59 Last Admin: 03/26/19 08:09 Dose: 120 mg Documented by: Docusate Sodium (Colace) 100 mg PO BID [facility] Stop: 04/23/19 10:59 Last Admin: 03/26/19 08:10 Dose: 100 mg Documented by: Enalapril Maleate (Vasotec) 20 mg PO BID [facility] Stop: 04/21/19 20:59 Last Admin: 03/26/19 08:09 Dose: 20 mg Documented by: Fentanyl (Duragesic) 12 mcg TD Q72H [facility] Stop: 04/05/19 18:59 Last Admin: 03/25/19 17:49 Dose: 12 mcg Documented by: Furosemide (Lasix) 20 mg PO UD PRN PRN Reason: Edema Stop: 04/21/19 17:44 Guaifenesin (Mucinex) 1,200 mg PO BID [facility] Stop: 04/21/19 20:59 Last Admin: 03/26/19 08:11 Dose: 1,200 mg Documented by: Furosemide 10 mg/ Syringe 1 mls @ 4 mls/min IV DAILY PRN PRN Reason: LE swelling Stop: 04/21/19 17:44 Pantoprazole Sodium 40 mg/ (Syringe) 10 mls @ 5 mls/min IV BID@0900,2100 [facility] Stop: 04/21/19 20:59 Last Admin: 03/26/19 08:10 Dose: 5 mls/min Documented by: Lactated Ringer's (Lr) 1,000 mls @ 125 mls/hr IV .Q8H [facility] Stop: 04/24/19 10:14 Last Admin: 03/26/19 11:00 Dose: 125 mls/hr Documented by: Ioversol (Optiray 320 100ml) 94 ml IV ONCE PRN PRN Reason: Interaction Checking Stop: 03/27/19 14:46 Last Admin: 03/23/19 14:48 Dose: 94 ml Documented by: Magnesium Hydroxide (Milk Of Magnesia) 30 ml PO Q12H PRN PRN Reason: Constipation Stop: 04/21/19 17:44 Methylnaltrexone Cornucopia (Relistor) 12 mg SQ Q2D [facility] Stop: 04/24/19 11:59 Last Admin: 03/25/19 11:57 Dose: 12 mg Documented by: Miconazole Nitrate (Desenex) 1 appln EXT PRN PRN PRN Reason: Affected Skin Folds Stop: 04/22/19 20:06 Miscellaneous (Fentanyl Patch Check Placement) 1 ea N/A QS [facility] Stop: 04/22/19 00:00 Last Admin: 03/26/19 08:08 Dose: 1 ea Documented by: Miscellaneous (Fentanyl Patch Remove & Waste) 1 ea N/A Q3D [facility] Stop: 04/24/19 18:59 Last Admin: 03/25/19 17:49 Dose: 1 ea Documented by: Miscellaneous (Remove Nicoderm Patch) 1 ea N/A HS [facility] Stop: 04/21/19 20:59 Last Admin: 03/25/19 20:45 Dose: 1 ea Documented by: Miscellaneous (Order Awaiting Action) 1 ea N/A QS [facility] Stop: 04/22/19 00:00 Last Admin: 03/26/19 08:07 Dose: Not Given Documented by: Nicotine (Nicoderm Cq) 21 mg TD QAM [facility] Stop: 04/22/19 08:59 Last Admin: 03/26/19 08:10 Dose: 21 mg Documented by: Ondansetron HCl (Zofran) 4 mg IV Q6H PRN PRN Reason: Nausea Stop: 04/21/19 17:44 Oxycodone HCl (Roxicodone Immediate Rel) 10 mg PO Q6H PRN PRN Reason: Pain Stop: 04/05/19 16:32 Last Admin: 03/26/19 11:09 Dose: 10 mg Documented by: Polyethylene Glycol (Miralax Powder Packet) 17 gm PO BID [facility] Stop: 04/24/19 08:59 Last Admin: 03/26/19 08:11 Dose: 17 gm Documented by: Potassium Chloride (Klor-Con M20) 20 meq PO Q2H [facility] Stop: 03/26/19 13:31 Last Admin: 03/26/19 12:39 Dose: 20 meq Documented by: PG Care Time/CCT Total # of Minutes Spent Total Time Spent with Patient: Total time spent is greater than 50% in coordination of care (as documented) at patient's floor/unit and/or counseling patient: Resident Activity Tracking Resident Involvement: Resident Care Provided Care Provided: Adult Hospital Medicine
[2019-03-26 10:33] LABS: Calcium 8.6 mg/dl (8.5-10.1); Creatinine Clr Calc Pharmacy 121.1 ml/min; Est GFR (African American) 121.9; Est GFR (Non-African American) 105.2; Potassium 3.8 mmol/L (3.5-5.1)
[2019-03-26] MEDS: OXYCODONE HCL IR 5 MG TAB (IMMEDIATE RELEASE) PO PRN ×2 (11:09→20:03)
[2019-03-26] MEDS: POTASSIUM CHLORIDE 20 MEQ TABCR PO SCH ×2 (12:39→13:06)
--- NOTE | 2019-03-26 13:22 | Discharge Summary ---
Date of Service March 26, 2019 Admission HPI Per Admitting Provider The patient is a 73-year-old male with a history of advanced squamous cell lung cancer who presented to the hospital for evaluation of fatigue and dizziness. The patient has a history of lung cancer and recently completed his course of radiation therapy. It appears that he was started on chemotherapy 3 to 4 weeks ago and is presently on carboplatin with paclitaxel. Gastroneurology is consulted for evaluation of anemia and heme positive stools. The patient reports having no abdominal discomfort today and notes that he is passing brown stool without any recent alteration. He did have an upper endoscopy performed several weeks ago by Dr. Pereira which was notable for mild gastritis but otherwise unremarkable. The patient recalls that he was not certain he wanted to undergo a colonoscopy at that time due to his shortness of breath and underlying cancer. He is not certain when his last colonoscopy was but believes it may have been over 10 years ago. He has no hematemesis, nausea, vomiting nor hematochezia. Admission Exam Per Admitting Provider Constitutional: WD/WN, vitals as above Eyes: normal visual navarrete by confrontation and + anicteric sclerae Neck: normal visual inspection and trachea midline Respiratory: normal respiratory effort, lungs clear to auscultation Cardiovascular: Rate/Rhythm: regular rate and regular rhythm Gastrointestinal (Abdomen): Inspection/Auscultation: abdomen not distended Percussion/Palpation: + abdomen tender (L lateral) and abdomen soft Musculoskeletal: Head/Neck/Chest: normocephalic and head atraumatic negative for edema, peripheral pulses intact Skin: no rashes, warm and dry Neurologic: awake; not confused Speech / Cognition: normal speech Psychiatric: A+Ox3, euthymic affect Principal Diagnosis Weakness secondary to chemotherapy, constipation, COPD exacerbation Discharge Exam General: No acute distress HEENT: Normocephalic atraumatic Neck: Normal visual inspection, trachea midline, did not appreciate any JVD Cardiac: Regular rate and rhythm, normal S1, normal S2, negative pedal edema, negative calf tenderness, and did not appreciate any murmurs rubs or gallops Respiratory: Lung exam improved from yesterday , intermittently restricted air movement, rhonchorous throughout all lung navarrete, clears somewhat with coughing, did not appreciate significant rales some wheezes. GI: Normal bowel sounds soft, nontender, nondistended MSK: Moves all extremities Skin: No new rashes Neuro: Alert and oriented although slightly confused Psych: Cooperative Discharge Data Allergies Allergy/AdvReac Type Severity Reaction Status Date / Time amlodipine AdvReac Intermediate edema Verified 03/14/19 12:01 hydrochlorothiazide AdvReac Intermediate hyponatremi Verified 03/14/19 12:01 a doxycycline AdvReac Mild Nausea and Verified 03/14/19 12:01 abdominal pain Consultations 03/22/19 14:58 ED Decision to Admit Stat 03/22/19 17:45 Consult Case Management - Discharge Planning Routine Consult Gastroenterology Routine 03/23/19 10:43 Consult Oncology Routine 03/25/19 10:22 Consult Case Management - Discharge Planning Routine Ordered Studies 03/23/19 11:31 CT abd pelvis oral and IV con Urgent Hospital Course (1) Weakness: #Weakness and LLQ abdominal pain Likely related to anemia vs. recent chemo with associated nausea and thus poor PO intake vs. hyponatremiaHeme + in ED. Hb 8.4 on admission, downtrended to 7.7 on 03/23, received 2 upRBC. Cardiac work up: Trop neg, EKG WNL. Infectious work up: WBC wnl, Abdominal CT with no concern for acute infection, UA neg, CXR neg for infection. On 03/[address] abdomen was obtained negative for bowel obstruction, negative for appendicitis/diverticulitis, small fat-containing inguinal hernias, prostamegaly, fecal retention, persistent right pleural effusion, 7.2 cm cavitary right middle lobe mass. GI was consulted: Recent EGD on 02/13 with gastritis and neg bx. Dr. Valentine - recommended colonoscopy in the near future given heme+ stool. Evaluated for colonoscopy today. Patient does not feel he can complete the prep. Colonoscopy deferred. Continue with supportive care including bowel regimen and blood transfusions as needed. Oncology was consulted:Myelosuppression is probably more a function of ongoing chemotherapy. Given pulmonary disease would try to maintain hemoglobin greater than 10. Goals of care discussions. Incorporated aggressive bowel regimen, paclitaxel can cause various GI effects. Hemoglobin and hematocrit was trended, and remained stable. On discharge patient can resume daily Protonix #COPD Patient has a history of COPD, on oxygen at home, and carries a diagnosis of small cell lung cancer. During my examination this morning the patient was consistently coughing, and appeared to be struggling to catch his breath. Patient is only on albuterol and ipratropium at home. Improving on new regimen of budesonide. Resume 4 times daily albuterol and ipratropium inhaler on discharge, begin taking Qvar 2 puffs twice daily. Outpatient provider could consider the pros and cons of initiating daily prednisone versus daily azithromycin and efforts to prophylax against future infections and treat COPD symptoms #Constipation likely causing LLQ abdomindal pain. Found to have fecal retention on CT abdomen on 03/23. Patient received Rella store on 03/25, since then patient has had 3 bowel movements. I think the majority of this patient's pain and constipation is related to opioid induced constipation, on discharge would continue Relistor. Continue MiraLAX and Colace daily as well #Hyponatremia: 127 on admission, likely related to poor PO intake vs. SIADH in the setting of SCC of lung, Improved to 134 with IVFs on 03/23, serum osmole's were obtained and were 274, urine osmole's were 538, urine sodium 105. I think it is questionable whether or not this patient had a an acute flareup of SIADH. I think his hyponatremia is more likely due to poor nutrition and chemotherapy, regardless on the day of discharge his hyponatremia had resolved and serum sodium was 138. #Hypertension/HLD/Aortic Stenosis/Diastolic CHF: Continue enalapril, diltiazem, Lasix PRN, atorvastatin. Patient was hypotensive on 03/25, Cardizem and Vasotec were held. -Monitor for si/sx of fluid overload Chronic Pain: 2/ to squamous cell carcinoma of the lung he completed radiation was with Dr. Colon, last dose of chemo was 03/07. During this admission we consulted hematology oncology who recommended follow-up at the end of the month to discuss goals of care. We continued PRN oxycodone and fentanyl patch. GERD (gastroesophageal reflux disease): Resume omeprazole 40 mg daily on discharge Urinary retention Patient is poor historian. Per the patient he has been experiencing i ntermittent urinary retention is a new symptom he states since being admitted to the hospital, however at times he would state that he previously had this. So it is unclear whether this is chronic or new problem. He did require 1 PRN straight cath, secondary to suprapubic pain and pressure. Started patient on trial of Flomax every morning if he tolerates and show symptom improvement would continue. Otherwise as needed straight cath for urinary retention with uro followup as needed Diet: Heart Healthy DVT prophylaxis: SCDs only 2/2 to suspected GI bleed Code: DNR/DNI Dispo: Discharge pending placement Total Time Total Time Spent Total Time Spent (In Minutes): <30 Discharge Plan Discharge Items Patient Disposition: Transfer Longterm Fac Reason For Visit: GIB Discharge Diagnosis: Weakness secondary to chemotherapy, constipation, COPD exacerbation Discharge Goals: Decrease discomfort, Diagnostic testing and Improve disease control Activity: Resume your previous activity Activity Comment: as tolerated Non-emergency contact: Primary Care Provider Call non-emergency contact if: your symptoms worsen, your pain is not controlled, your pain is worsening and your temperature is above 100.5 Follow-up/Referrals: Des Salas MD [Primary Care Provider] - Diet: Heart Healthy Addtl Provider Instructions: Care instructions: You were admitted to [facility] for treatment of Weakness secondary to chemotherapy, constipation, COPD exacerbation. A discharge summary will be sent to your primary care physician to ensure continuity of care. Please bring this discharge summary with you to your next office appointment so that your provider can review it at that time. #Weakness and LLQ abdominal pain Likely related to anemia vs. recent chemo with associated nausea and thus poor PO intake vs. hyponatremiaHeme + in ED. Hb 8.4 on admission, downtrended to 7.7 on 03/23, received 2 upRBC. Cardiac work up: Trop neg, EKG WNL. Infectious work up: WBC wnl, Abdominal CT with no concern for acute infection, UA neg, CXR neg for infection. On 03/[address] abdomen was obtained negative for bowel obstruction, negative for appendicitis/diverticulitis, small fat-containing inguinal hernias, prostamegaly, fecal retention, persistent right pleural effusion, 7.2 cm cavitary right middle lobe mass. GI was consulted: Recent EGD on 02/13 with gastritis and neg bx. Dr. Valentine - recommended colonoscopy in the near future given heme+ stool. Evaluated for colonoscopy today. Patient does not feel he can complete the prep. Colonoscopy deferred. Continue with supportive care including bowel regimen and blood transfusions as needed. Oncology was consulted:Myelosuppression is probably more a function of ongoing chemotherapy. Given pulmonary disease would try to maintain hemoglobin greater than 10. Goals of care discussions. Incorporated aggressive bowel regimen, paclitaxel can cause various GI effects. Hemoglobin and hematocrit was trended, and remained stable. On discharge patient can resume daily Protonix #COPD Patient has a history of COPD, on oxygen at home, and carries a diagnosis of small cell lung cancer. During my examination this morning the patient was consistently coughing, and appeared to be struggling to catch his breath. Patient is only on albuterol and ipratropium at home. Improving on new regimen of budesonide. Resume 4 times daily albuterol and ipratropium inhaler on discharge, begin taking Qvar 2 puffs twice daily. Outpatient provider could consider the pros and cons of initiating daily prednisone versus daily azithromycin and efforts to prophylax against future infections and treat COPD symptoms #Constipation likely causing LLQ abdomindal pain. Found to have fecal retention on CT abdomen on 03/23. Patient received Rella store on 03/25, since then patient has had 3 bowel movements. I think the majority of this patient's pain and constipation is related to opioid induced constipation, on discharge would continue Relistor. Continue MiraLAX and Colace daily as well #Hyponatremia: 127 on admission, likely related to poor PO intake vs. SIADH in the setting of SCC of lung, Improved to 134 with IVFs on 03/23, serum osmole's were obtained and were 274, urine osmole's were 538, urine sodium 105. I think it is questionable whether or not this patient had a an acute flareup of SIADH. I think his hyponatremia is more likely due to poor nutrition and chemotherapy, regardless on the day of discharge his hyponatremia had resolved and serum sodium was 138. #Hypertension/HLD/Aortic Stenosis/Diastolic CHF: Continue enalapril, diltiazem, Lasix PRN, atorvastatin. Patient was hypotensive on 03/25, Cardizem and Vasotec were held. -Monitor for si/sx of fluid overload Chronic Pain: 2/ to squamous cell carcinoma of the lung he completed radiation was with Dr. Colon, last dose of chemo was 03/07. During this admission we consulted hematology oncology who recommended follow-up at the end of the month to discuss goals of care. We continued PRN oxycodone and fentanyl patch. GERD (gastroesophageal reflux disease): Resume omeprazole 40 mg daily on discharge Urinary retention Patient is poor historian. Per the patient he has been experiencing intermittent urinary retention is a new symptom he states since being admitted to the hospital, however at times he would state that he previously had this. So it is unclear whether this is chronic or new problem. He did require 1 PRN straight cath, secondary to suprapubic pain and pressure. Started patient on trial of Flomax every morning if he tolerates and show symptom improvement would continue. Otherwise as needed straight cath for urinary retention with uro followup as needed. Diet: Heart Healthy DVT prophylaxis: SCDs only 2/2 to suspected GI bleed Code: DNR/DNI Dispo: Discharge pending placement Follow-up appointments: - Keep all your follow-up appointments as already scheduled. If you cannot make an appointment, notify your provider. - Please call to request a follow-up appointment with your primary care physician within one week of discharge. Please let us know if you are unable to obtain an appointment Follow-up labs: - Please go to a lab nearest you and obtain the requested lab work. Please have this completed at least 3 hours before your doctor's appointment (or the day before your appointment if possible). Medications: - Your medication list has been reviewed and reconciled upon discharge to ensure accuracy and continuity of care. - You are provided with a list of all your current medications at this time. Please review this list closely and make note of any changes. - Please take all of your medications exactly as prescribed. - Tell your primary care provider if you cannot afford your medications. - Call your primary care provider if you are having any side effects or any other problems. - Call your primary care provider before taking any over the counter medications or supplements, including herbals and vitamins, because some of these may interact with your current medications and/or make your symptoms worse. Symptoms: Please call your primary care provider for symptoms including, but not limited to: fevers (temperatures greater than 100.4), chills, intractable nausea or vomiting, diarrhea, rash, shortness of breath, bleeding, pain, or if you experience any worsening of the symptoms that brought you to the hospital. For EMERGENCY and VERY SERIOUS health-related issues, such as chest pain, shortness of breath, or sudden onset of the symptoms that brought you to the hospital, you may need to call 911 or go directly to the Emergency Room It has been our privilege to take care of you during your hospital stay. And Above All Else Feel Better! Best Wishes, Thomas Ureña MD PGY1 Resident, Family & Community Medicine [facility] [address] [place] [address], [address] : [address] [place] [address] Prescriptions: New nicotine [Nicoderm CQ] 21 mg/24 hr Patch 24 Hour 21 mg transdermal QAM 30 Days Qty: 28 RF: 6 potassium chloride [Klor-Con M20] 20 mEq Tablet,Er Particles/Crystals 20 meq PO DAILY 30 Days Qty: 30 RF: 0 docusate sodium 100 mg Capsule 100 mg PO BID 30 Days Qty: 60 RF: 0 polyethylene glycol 3350 [Miralax] 17 gram Powder In Packet 17 g PO BID 30 Days Qty: 30 RF: 0 Relistor 150 mg tablet 450 mg PO DAILY 30 Days Qty: 90 RF: 3 Qvar RediHaler 80 mcg/actuation HFA aerosol breath activated 2 puffs INH BID Qty: 10.6 RF: 3 Continued mometasone-formoterol [Dulera] 100-5 mcg/actuation HFA aerosol inhaler 2 puffs INH QAM RF: 0 diltiazem HCl 120 mg capsule,extended release 24hr 120 mg PO QAM Qty: 90 RF: 3 omeprazole 40 mg capsule,delayed release(DR/EC) 40 mg PO QPM Qty: 90 RF: 3 Combivent Respimat 20-100 mcg/actuation Mist 1 puff INHALATION QID Qty: 0 RF: 0 acetaminophen 500 mg Capsule 500 mg PO Q6H PRN (Reason: Pain) RF: 0 fentanyl [Duragesic] 12 mcg/hr Patch 72 Hour 1 patch TRANSDERMAL Q72H 30 Days Qty: 11 RF: 0 oxycodone 10 mg tablet 10 mg PO DIRECTED PRN (Reason: Pain) 30 Days Qty: 120 RF: 0 atorvastatin 40 mg tablet 40 mg PO QPM RF: 0 enalapril maleate 20 mg tablet 20 mg PO BID RF: 0 furosemide 20 mg Tablet 20 mg PO UD PRN (Reason: Edema) RF: 0 guaifenesin [Mucinex] 1,200 mg Tablet Extended Release 12hr 1,200 mg PO BID RF: 0 cholecalciferol (vitamin D3) [Vitamin D3] 2,000 unit Capsule 2,000 unit PO QPM RF: 0 Stand-Alone Forms: [facility] Discharge Orders: Discharge Order (Routine); Ordered 03/29/19 Ordered By: Thomas Ureña Skilled Items Patient informed of condition?: Yes DNR: Yes Discharge Level of Care: Acute rehab Communicable Disease: No Discharge Prognosis: Stable Admission Data Admit Date/Time: 03/22/19 16:05 Attending Provider: Balwinder Christiansen Admit Provider: Aminta Farnsworth Primary Care Provider: [place]as Other Providers: Aminta Farnsworth ; Leon Pereira ; Danny Wu V ; Sushant Mujica Service: Telemetry Medical Other Interventions: Discharge Summary Assessment (RN) Last Done: 03/29/19 10:52 DC Date/Time DO NOT enter until pt leaves facility: 03/29/19 14:50 Supervising Physician Co-Signing Physician Notes I personally examined the patient and verified all ramírez points of history and exam, discussed case, and agree with decision making with Dr Ureña. SNF bed available today! Generally feeling up to going. Discussed urinary symptoms. Discussed management with Flomax and straight cath as needed. Vitals noted, in general he is awake and alert pleasant no distress. HEENT normocephalic atraumatic mucous membranes moist. Breathing unlabored no accessory muscle use good effort. Skin shows no rashes no pallor or icterus. Urinary retentionmost likely BPH mediated. Flomax seems to be helping, straight cath as needed. Hopefully given that he did not have much LUTS prior to admission the Flomax trial can be short-lived if he improves. Weaknessmultifactorial but shows good signs for improvement with ongoing therapy. SNF w rehab emphasis today Chronic hypoxic respiratory failurecontinue oxygen/supportive care, stable in this regard/no new complaints. DVT prophylaxispharmacologic held out of concern due to his anemia and heme positive stools. he is ambulatory Stable for transfer to SNF. Resident Activity Tracking Resident Involvement: Resident Care Provided Care Provided: Adult Hospital Medicine
[2019-03-26] MEDS: ATORVASTATIN 40 MG TAB PO SCH (20:32)
[2019-03-27] MEDS: BUDESONIDE 0.5 MG/2 ML VIAL (PULMICORT) NEB SCH ×2 (06:53→19:23)
[2019-03-27] MEDS: ALBUT/IPRATROP 3MG/0.5MG NEB 3 ML VIAL NEB SCH ×4 (06:53→19:23)
[2019-03-27 07:03] LABS: Hematocrit (blood only) 29.6 % (42-52); Hemoglobin 9.8 g/dL (14.0-18.0); Mean Corpuscular Hgb Conc 33.1 g/dL (32-36); Mean Corpuscular Volume 94.9 fL (80-100); RDW Coefficient of Variation 16.5 % (11.5-14.5); RDW Standard Deviation 57.3 fL (36.4-46.3); Red Blood Count 3.12 M/uL (4.7-6.1); White Blood Count 3.49 K/uL (4.8-10.8)
[2019-03-27 07:04] LABS: Platelet Count 94 K/uL (130-400)
[2019-03-27 07:35] LABS: Basophils # (auto) 0.01 K/uL (0-0.2); Basophils % (auto) 0.3 %; Eosinophils # (auto) 0.02 K/uL (0-0.5); Eosinophils % (auto) 0.6 %; Immature Granulocytes # (auto) 0.01 K/uL (0.00-0.02); Immature Granulocytes % (auto) 0.3 %; Lymphocytes # (auto) 0.36 K/uL (1.2-3.4); Lymphocytes % (auto) 10.3 %; Monocytes # (auto) 0.43 K/uL (0.11-0.59); Monocytes % (auto) 12.3 %; Neutrophils # (auto) 2.66 K/uL (1.4-6.5); Neutrophils % (auto) 76.2 %
[2019-03-27 07:45] LABS: BUN Creatinine Ratio 19.2 (10-20); Calcium 8.9 mg/dl (8.5-10.1); Creatinine Clr Calc Pharmacy 116.5 ml/min; Est GFR (Non-African American) 103.5; Potassium 4.7 mmol/L (3.5-5.1)
[2019-03-27] MEDS: CHECK FENTANYL PATCH PLACEMENT SCH ×2 (07:46→16:22)
[2019-03-27] MEDS: dilTIAZem HCL 120 MG CAPCR PO SCH (07:46)
[2019-03-27] MEDS: POLYETHYLENE (MIRALAX) 17 GM PACK PO SCH (07:47)
[2019-03-27] MEDS: DOCUSATE SODIUM 100 MG CAP PO SCH (07:47)
[2019-03-27] MEDS: NICOTINE 21 MG/24 HR TDSY TD SCH (07:48)
[2019-03-27] MEDS: guaiFENesin 600 MG TABCR PO SCH ×2 (07:48→20:32)
[2019-03-27] MEDS: PANTOprazole 40 MG in SYRINGE 0 ML IV SCH (07:48)
[2019-03-27] MEDS: ENALAPRIL MALEATE 10 MG TAB PO SCH ×2 (07:49→20:32)
[2019-03-27] MEDS ORDERED: DOCUSATE SODIUM 100 MG CAP PO PRN (09:59)
[2019-03-27] MEDS ORDERED: POLYETHYLENE (MIRALAX) 17 GM PACK PO PRN (09:59)
--- NOTE | 2019-03-27 10:08 | Family Medicine Progress Note ---
Date of Service March 27, 2019 Assessment & Plan (1) Weakness: #Weakness and LLQ abdominal pain Likely related to anemia vs. recent chemo with associated nausea and thus poor PO intake vs. hyponatremia Heme + in ED. Hb 8.4 on admission, downtrended to 7.7 on 03/23, received 2 upRBC. Cardiac work up: Trop neg, EKG WNL. Infectious work up: WBC wnl, Abdominal CT with no concern for acute infection, UA neg, CXR neg for infection. On 03/[address] abdomen was obtained negative for bowel obstruction, negative for appendicitis/diverticulitis, small fat-containing inguinal hernias, prostamegaly, fecal retention, persistent right pleural effusion, 7.2 cm cavitary right middle lobe mass. -GI consulted: Recent EGD on 02/13 with gastritis and neg bx. Dr. Valentine - recommended colonoscopy in the near future given heme+ stool. Evaluated for colonoscopy today. Patient does not feel he can complete the prep. Colonoscopy deferred. Continue with supportive care including bowel regimen and blood transfusions as needed -Oncology consulted:Myelosuppression is probably more a function of ongoing noel motherapy. Given pulmonary disease would try to maintain hemoglobin greater than 10. Goals of care discussions. Incorporated aggressive bowel regimen, paclitaxel can cause various GI effects -Trend H/H and transfuse if < 8 given hx of aortic stenosis -Protonix BID po #COPD Patient has a history of COPD, on oxygen at home, and carries a diagnosis of small cell lung cancer. During my examination this morning the patient was consistently coughing, and appeared to be struggling to catch his breath. Patient is only on albuterol and ipratropium at home. Improving on new regimen of budesonide. -Home inhalers on hold -Scheduled duo nebs 4 times daily -Budesonide 0.5mg twice daily -Consider initiating daily Pred versus daily azithromycin will defer to outpatient #Constipation - likely causing LLQ abdomindal pain Found to have fecal retention on CT abdomen on 03/23. Significant improvement status post Relistor, would continue on discharge. -Continue MiraLAX and Colace as needed twice daily -Started Relistor #Hyponatremia: 127 on admission, likely related to poor PO intake vs. SIADH in the setting of SCC of lung, Improved to 134 with IVFs on 03/23, Today 137 -Serum Osm 274, urine osm 538, Na 105 -Urine OSM is not consistent with SIADH presentation likely secondary to poor nutrition -Trend BMP #Hypertension/HLD/Aortic Stenosis/Diastolic CHF: Continue enalapril, diltiazem, Lasix PRN, atorvastatin. Patient was hypotensive on 03/25, Cardizem and Vasotec were held. -Monitor for si/sx of fluid overload -Stopped MIVF Chronic Pain: 2/2 to cancer Continue PRN oxycodone and fentanyl patch -Squamous cell carcinoma lung: -Finished radiation with Dr. Jaylen Colon, last chemo was 03/07 -Heme/Onc consulted - Dr. Wu Follow up in office at the end of the month to discuss care GERD (gastroesophageal reflux disease): -On Protonix BID -Hold home med Diet: Heart Healthy DVT prophylaxis: SCDs only / to suspected GI bleed Code: DNR/DNI Dispo: medically cleared for placement[facility]. Supervising Physician Co-Signing Physician Notes I personally examined the patient and verified all ramírez points of history and exam, discussed case, and agree with decision making with Dr Ureña. feeling about the same. rehab denied, OK w trying for SNF. Vitals noted, in general he is awake and alert pleasant no distress. HEENT normocephalic atraumatic mucous membranes moist. Breathing unlabored no accessory muscle use good effort. Skin shows no rashes no pallor or icterus. Weaknessmultifactorial but improving. SNF w rehab emphasis as soon as can be arranged. Chronic hypoxic respiratory failurecontinue oxygen/supportive care, stable in this regard/no new complaints. DVT prophylaxispharmacologic held out of concern due to his anemia and heme positive stools. he is ambulatory Subjective Patient sitting up in bed this morning in no acute distress, reporting no significant interval history overnight. Patient is pleased that his constipation is resolved and is now reporting some diarrhea, will back off Mi raLAX and Colace. Otherwise patient's breathing is significantly improved, no longer consistently coughing and chest exam is better. Patient is tolerating his diet, voiding, stooling. Patient was upset this morning that his insurance denied acute rehab at [facility]. We had a conversation about the differences between acute rehab and SNF, patient understood that he was probably not appropriate for acute rehab agreeable to proceed to SNF. Per case management patient has a bed tomorrow at [facility], pending insurance approval. Physical Exam Physical Exam: General: No acute distress HEENT: Normocephalic atraumatic Neck: Normal visual inspection, trachea midline, did not appreciate any JVD Cardiac: Regular rate and rhythm, normal S1, normal S2, negative pedal edema, negative calf tenderness, and did not appreciate any murmurs rubs or gallops Respiratory: Lung exam stable , intermittently restricted air movement, rhonchorous throughout all lung navarrete, clears somewhat with coughing, did not appreciate significant rales some wheezes. GI: Normal bowel sounds soft, nontender, nondistended MSK: Moves all extremities Skin: No new rashes Neuro: Alert and oriented although slightly confused Psych: Cooperative Results & Data Vital Signs (Past 12 Hours) Vital Signs Temp Pulse Pulse Resp BP Pulse Ox 03/27/19 07:35 80 03/27/19 07:33 36.5 C 49 L 18 91/62 L 97 03/27/19 07:00 72 18 03/27/19 00:45 93 H 03/27/19 00:00 36.5 C 97 H 155/63 H 93 Laboratory Results 03/27/19 03/27/19 03/26/19 Range/Units 06:38 06:38 09:54 WBC 3.49 L (4.8-10.8) K/uL RBC 3.12 L (4.7-6.1) M/uL Hgb 9.8 L (14.0-18.0) g/dL Hct 29.6 L (42-52) % MCV 94.9 (80-100) fL MCH 31.4 (25-34) pg MCHC 33.1 (32-36) g/dL RDW Std Deviation 57.3 H (36.4-46.3) fL RDW Coeff of Tuan 16.5 H (11.5-14.5) % Plt Count 94 L (130-400) K/uL MPV 9.0 (7.4-10.4) fL Immature Gran % (Auto) 0.3 % Neut % (Auto) 76.2 % Lymph % (Auto) 10.3 % [place] % (Auto) 12.3 % Eos % (Auto) 0.6 % Baso % (Auto) 0.3 % Immature Gran # (Auto) 0.01 (0.00-0.02) K/uL Neut # (Auto) 2.66 (1.4-6.5) K/uL Lymph # (Auto) 0.36 L (1.2-3.4) K/uL [place] # (Auto) 0.43 (0.11-0.59) K/uL Eos # (Auto) 0.02 (0-0.5) K/uL Baso # (Auto) 0.01 (0-0.2) K/uL Sodium 137 138 (136-145) mmol/L Potassium 4.7 D 3.8 (3.5-5.1) mmol/L Chloride 103 104 (98-107) mmol/L Carbon Dioxide 30 27 (21-32) mmol/L Anion Gap 4.0 8.0 (3-11) BUN 10 13 (7-18) mg/dl Creatinine 0.53 L 0.51 L (0.6-1.4) mg/dl Est Cr Clr Drug Dosing 116.5 121.1 ml/min Est GFR ( Amer) 120.0 121.9 Est GFR (Non-Af Amer) 103.5 105.2 BUN/Creatinine Ratio 19.2 25.0 H (10-20) Glucose 100 H 80 (70-99) mg/dl Calcium 8.9 8.6 (8.5-10.1) mg/dl Medications Administered Current Inpatient Medications Acetaminophen (Tylenol) 650 mg PO Q4H PRN PRN Reason: Pain or Fever Stop: 04/21/19 17:44 Last Admin: 03/26/19 23:23 Dose: 650 mg Documented by: Albuterol (Combivent Respimat) 1 puffs INH QIDR [facility] Stop: 04/21/19 17:44 Last Admin: 03/25/19 09:45 Dose: 1 puffs Documented by: Albuterol (Duoneb) 3 ml NEB QIDR [facility] Stop: 04/24/19 11:59 Last Admin: 03/27/19 06:53 Dose: 3 ml Documented by: Atorvastatin Calcium (Lipitor) 40 mg PO QPM [facility] Stop: 04/22/19 20:59 Last Admin: 03/26/19 20:32 Dose: 40 mg Documented by: Budesonide (Pulmicort Respules) 0.5 mg NEB BIDR [facility] Stop: 04/24/19 19:59 Last Admin: 03/27/19 06:53 Dose: 0.5 mg Documented by: Diltiazem HCl (Cardizem Cd) 120 mg PO QAM [facility] Stop: 04/22/19 08:59 Last Admin: 03/27/19 07:46 Dose: Not Given Documented by: Docusate Sodium (Colace) 100 mg PO BID PRN PRN Reason: constipation Stop: 04/23/19 10:59 Enalapril Maleate (Vasotec) 20 mg PO BID [facility] Stop: 04/21/19 20:59 Last Admin: 03/27/19 07:49 Dose: 20 mg Documented by: Fentanyl (Duragesic) 12 mcg TD Q72H [facility] Stop: 04/05/19 18:59 Last Admin: 03/25/19 17:49 Dose: 12 mcg Documented by: Furosemide (Lasix) 20 mg PO UD PRN PRN Reason: Edema Stop: 04/21/19 17:44 Guaifenesin (Mucinex) 1,200 mg PO BID [facility] Stop: 04/21/19 20:59 Last Admin: 03/27/19 07:48 Dose: 1,200 mg Documented by: Ioversol (Optiray 320 100ml) 94 ml IV ONCE PRN PRN Reason: Interaction Checking Stop: 03/27/19 14:46 Last Admin: 03/23/19 14:48 Dose: 94 ml Documented by: Magnesium Hydroxide (Milk Of Magnesia) 30 ml PO Q12H PRN PRN Reason: Constipation Stop: 04/21/19 17:44 Methylnaltrexone [place] (Relistor) 12 mg SQ Q2D [facility] Stop: 04/24/19 11:59 Last Admin: 03/25/19 11:57 Dose: 12 mg Documented by: Miconazole Nitrate (Desenex) 1 appln EXT PRN PRN PRN Reason: Affected Skin Folds Stop: 04/22/19 20:06 Miscellaneous (Fentanyl Patch Check Placement) 1 ea N/A QS [facility] Stop: 04/22/19 00:00 Last Admin: 03/27/19 07:46 Dose: 1 ea Documented by: Miscellaneous (Fentanyl Patch Remove & Waste) 1 ea N/A Q3D [facility] Stop: 04/24/19 18:59 Last Admin: 03/25/19 17:49 Dose: 1 ea Documented by: Miscellaneous (Remove Nicoderm Patch) 1 ea N/A HS [facility] Stop: 04/21/19 20:59 Last Admin: 03/26/19 20:34 Dose: 1 ea Documented by: Miscellaneous (Order Awaiting Action) 1 ea N/A QS [facility] Stop: 04/22/19 00:00 Last Admin: 03/27/19 07:46 Dose: Not Given Documented by: Nicotine (Nicoderm Cq) 21 mg TD QAM [facility] Stop: 04/22/19 08:59 Last Admin: 03/27/19 07:48 Dose: 21 mg Documented by: Ondansetron HCl (Zofran) 4 mg IV Q6H PRN PRN Reason: Nausea Stop: 04/21/19 17:44 Oxycodone HCl (Roxicodone Immediate Rel) 10 mg PO Q6H PRN PRN Reason: Pain Stop: 04/05/19 16:32 Last Admin: 03/26/19 20:03 Dose: 10 mg Documented by: Pantoprazole Sodium (Protonix) 40 mg PO BID [facility] Stop: 04/26/19 20:59 Polyethylene Glycol (Miralax Powder Packet) 17 gm PO BID PRN PRN Reason: constipation Stop: 04/24/19 08:59 PG Care Time/CCT Total # of Minutes Spent Total Time Spent with Patient: Total time spent is greater than 50% in coordination of care (as documented) at patient's floor/unit and/or counseling patient: Resident Activity Tracking Resident Involvement: Resident Care Provided Care Provided: Adult Hospital Medicine
[2019-03-27] MEDS: METHYLNALTREXONE BROMIDE 12 MG/0.6 ML VIAL SQ SCH (11:17)
[2019-03-27] MEDS: OXYCODONE HCL IR 5 MG TAB (IMMEDIATE RELEASE) PO PRN ×2 (15:35→22:40)
[2019-03-27] MEDS: PANTOprazole 40 MG TAB PO SCH (20:32)
[2019-03-27] MEDS: ATORVASTATIN 40 MG TAB PO SCH (20:33)
[2019-03-28] MEDS: CHECK FENTANYL PATCH PLACEMENT SCH ×3 (00:01→15:25)
[2019-03-28] MEDS: ALBUT/IPRATROP 3MG/0.5MG NEB 3 ML VIAL NEB SCH ×4 (07:27→20:01)
[2019-03-28] MEDS: BUDESONIDE 0.5 MG/2 ML VIAL (PULMICORT) NEB SCH ×2 (07:27→20:01)
[2019-03-28] MEDS: ENALAPRIL MALEATE 10 MG TAB PO SCH ×2 (08:13→21:04)
[2019-03-28] MEDS: PANTOprazole 40 MG TAB PO SCH ×2 (08:13→21:05)
[2019-03-28] MEDS: guaiFENesin 600 MG TABCR PO SCH ×2 (08:13→21:05)
[2019-03-28] MEDS: dilTIAZem HCL 120 MG CAPCR PO SCH (08:14)
[2019-03-28] MEDS: NICOTINE 21 MG/24 HR TDSY TD SCH (08:17)
[2019-03-28] MEDS: OXYCODONE HCL IR 5 MG TAB (IMMEDIATE RELEASE) PO PRN ×3 (09:45→21:02)
[2019-03-28 11:26] LABS: BUN Creatinine Ratio 20.5 (10-20); Calcium 8.9 mg/dl (8.5-10.1); Creatinine Clr Calc Pharmacy 121.1 ml/min; Est GFR (African American) 121.9; Est GFR (Non-African American) 105.2; Potassium 4.3 mmol/L (3.5-5.1)
[2019-03-28] MEDS ORDERED: TAMSULOSIN HCL 0.4 MG CAP PO ONE (13:15)
--- NOTE | 2019-03-28 16:53 | Family Medicine Progress Note ---
Date of Service March 28, 2019 Assessment & Plan (1) Weakness: Urinary retention Patient is poor historian. Per the patient he has been experiencing intermittent urinary retention is a new symptom he states since being admitted to the hospital, however at times he would state that he previously had this. So it is unclear whether this is chronic or new problem. He did require 1 PRN straight cath, secondary to suprapubic pain and pressure. Started patient on trial of Flomax every morning if he tolerates and show symptom improvement would continue. Otherwise as needed straight cath for urinary retention -bmp show normal cr -flomax q am -prn straight cath/bladder scan #Weakness and LLQ abdominal pain Likely related to anemia vs. recent chemo with associated nausea and thus poor PO intake vs. hyponatremia Heme + in ED. Hb 8.4 on admission, downtrended to 7.7 on 03/23, received 2 upRBC. Cardiac work up: Trop neg, EKG WNL. Infectious work up: WBC wnl, Abdominal CT with no concern for acute infection, UA neg, CXR neg for infection. On 03/[address] abdomen was obtained negative for bowel obstruction, negative for appendicitis/diverticulitis, small fat-containing inguinal hernias, prostamegaly, fecal retention, persistent right pleural effusion, 7.2 cm cavitary right middle lobe mass. -GI consulted: Recent EGD on 02/13 with gastritis and neg bx. Dr. Valentine - recommended colonoscopy in the near future given heme+ stool. Evaluated for colonoscopy today. Patient does not feel he can complete the prep. Colonoscopy deferred. Continue with supportive care including bowel regimen and blood transfusions as needed -Oncology consulted:Myelosuppression is probably more a function of ongoing chemotherapy. Given pulmonary disease would try to maintain hemoglobin greater than 10. Goals of care discussions. Incorporated aggressive bowel regimen, paclitaxel can cause various GI effects -Trend H/H and transfuse if < 8 given hx of aortic stenosis -Protonix BID po #COPD Patient has a history of COPD, on oxygen at home, and carries a diagnosis of small cell lung cancer. During my examination this morning the patient was consistently coughing, and appeared to be struggling to catch his breath. Patient is only on albuterol and ipratropium at home. Improving on new regimen of budesonide. -Home inhalers on hold -Scheduled duo nebs 4 times daily -Budesonide 0.5mg twice daily -Consider initiating daily Pred versus daily azithromycin will defer to outpatient #Constipation - likely causing LLQ abdomindal pain Found to have fecal retention on CT abdomen on 03/23. Significant improvement status post Relistor, would continue on discharge -Continue MiraLAX and Colace twice daily -Started Relistor #Hyponatremia: 127 on admission, likely related to poor PO intake vs. SIADH in the setting of SCC of lung, Improved to 134 with IVFs on 03/23, Today 138 -Serum Osm 274, urine osm 538, Na 105 -Urine OSM is not consistent with SIADH presentation likely secondary to poor nutrition -Trend BMP #Hypertension/HLD/Aortic Stenosis/Diastolic CHF: Continue enalapril, diltiazem, Lasix PRN, atorvastatin. Patient was hypotensive on 03/25, Cardizem and Vasotec were held. -Monitor for si/sx of fluid overload -Stopped MIVF #Chronic Pain: 2/2 to cancer Continue PRN oxycodone and fentanyl patch -Squamous cell carcinoma lung: -Finished radiation with Dr. Jaylen Colon, last chemo was 03/07 -Heme/Onc consulted - Dr. Wu Follow up in office at the end of the month to discuss care #GERD (gastroesophageal reflux disease): -On Protonix BID -Hold home med Diet: Heart Healthy DVT prophylaxis: SCDs only 2/2 to suspected GI bleed Code: DNR/DNI Dispo: Discharged pending placement Supervising Physician Co-Signing Physician Notes I personally examined the patient and verified all ramírez points of history and exam, discussed case, and agree with decision making with Dr Ureña. Discussed with case management, hopefully SNF tomorrow. Main complaint today is urinary retention. Vitals noted, in general he is awake and alert pleasant no distress. HEENT normocephalic atraumatic mucous membranes moist. Breathing unlabored no accessory muscle use good effort. Skin shows no rashes no pallor or icterus. Urinary retentionmost likely BPH mediated. Straight cath as needed. Trial of Flomax. Outpatient follow-up. Weaknessmultifactorial but shows good signs for improvement with ongoing therapy. SNF w rehab emphasis as soon as can be arranged. Chronic hypoxic respiratory failurecontinue oxygen/supportive care, stable in this regard/no new complaints. DVT prophylaxispharmacologic held out of concern due to his anemia and heme positive stools. he is ambulatory Subjective Patient laying in bed this morning in no acute distress. Overnight patient complained of superacute pubic fullness, tenderness, and inability to void. He was bladder scanned and was retaining 500 mL of fluid and subsequently straight cath for approximately 400 mls. Per discussion with the patient he thinks that these are new onset symptoms, but that at the same time he said he had them in the past. Likely this acute exacerbation of BPH. Started the patient on a trial of Flomax to see if it helps. Otherwise no significant interval history, patient tolerating his diet, voiding although with difficulty, stooling, sleeping. All questions answered, no acute concerns Physical Exam Physical Exam: General: No acute distress HEENT: Normocephalic atraumatic Neck: Normal visual inspection, trachea midline, did not appreciate any JVD Cardiac: Regular rate and rhythm, normal S1, normal S2, negative pedal edema, negative calf tenderness, and did not appreciate any murmurs rubs or gallops Respiratory: Lung exam improved from yesterday , intermittently restricted air movement, rhonchorous throughout all lung navarrete, clears somewhat with coughing, did not appreciate significant rales some wheezes. GI: Normal bowel sounds soft, nontender, nondistended MSK: Moves all extremities Skin: No new rashes Neuro: Alert and oriented although slightly confused Psych: Cooperative Results & Data Vital Signs (Past 12 Hours) Vital Signs Temp Pulse Pulse Resp BP BP Pulse Ox 03/28/19 15:54 36.8 C 88 18 107/74 96 03/28/19 15:51 105 H 03/28/19 15:18 88 18 95 03/28/19 12:00 36.8 C 92 H 18 98/67 L 92 03/28/19 11:25 126 H 03/28/19 11:14 18 94 03/28/19 07:31 80 18 93 03/28/19 07:00 36.8 C 86 18 134/81 77 L Laboratory Results 03/28/19 Range/Units 10:38 Sodium 137 (136-145) mmol/L Potassium 4.3 (3.5-5.1) mmol/L Chloride 102 (98-107) mmol/L Carbon Dioxide 30 (21-32) mmol/L Anion Gap 5.0 (3-11) BUN 10 (7-18) mg/dl Creatinine 0.51 L (0.6-1.4) mg/dl Est Cr Clr Drug Dosing 121.1 ml/min Est GFR ( Amer) 121.9 Est GFR (Non-Af Amer) 105.2 BUN/Creatinine Ratio 20.5 H (10-20) Glucose 86 (70-99) mg/dl Calcium 8.9 (8.5-10.1) mg/dl Medications Administered Current Inpatient Medications Acetaminophen (Tylenol) 650 mg PO Q4H PRN PRN Reason: Pain or Fever Stop: 04/21/19 17:44 Last Admin: 03/26/19 23:23 Dose: 650 mg Documented by: Albuterol (Combivent Respimat) 1 puffs INH QIDR [facility] Stop: 04/21/19 17:44 Last Admin: 03/25/19 09:45 Dose: 1 puffs Documented by: Albuterol (Duoneb) 3 ml NEB QIDR [facility] Stop: 04/24/19 11:59 Last Admin: 03/28/19 15:17 Dose: 3 ml Documented by: Atorvastatin Calcium (Lipitor) 40 mg PO QPM [facility] Stop: 04/22/19 20:59 Last Admin: 03/27/19 20:33 Dose: 40 mg Documented by: Budesonide (Pulmicort Respules) 0.5 mg NEB BIDR [facility] Stop: 04/24/19 19:59 Last Admin: 03/28/19 07:27 Dose: 0.5 mg Documented by: Diltiazem HCl (Cardizem Cd) 120 mg PO QAM [facility] Stop: 04/22/19 08:59 Last Admin: 03/28/19 08:14 Dose: 120 mg Documented by: Docusate Sodium (Colace) 100 mg PO BID PRN PRN Reason: constipation Stop: 04/23/19 10:59 Enalapril Maleate (Vasotec) 20 mg PO BID [facility] Stop: 04/21/19 20:59 Last Admin: 03/28/19 08:13 Dose: 20 mg Documented by: Fentanyl (Duragesic) 12 mcg TD Q72H [facility] Stop: 04/05/19 18:59 Last Admin: 03/25/19 17:49 Dose: 12 mcg Documented by: Furosemide (Lasix) 20 mg PO UD PRN PRN Reason: Edema Stop: 04/21/19 17:44 Guaifenesin (Mucinex) 1,200 mg PO BID [facility] Stop: 04/21/19 20:59 Last Admin: 03/28/19 08:13 Dose: 1,200 mg Documented by: Magnesium Hydroxide (Milk Of Magnesia) 30 ml PO Q12H PRN PRN Reason: Constipation Stop: 04/21/19 17:44 Methylnaltrexone [place] (Relistor) 12 mg SQ Q2D [facility] Stop: 04/24/19 11:59 Last Admin: 03/27/19 11:17 Dose: Not Given Documented by: Miconazole Nitrate (Desenex) 1 appln EXT PRN PRN PRN Reason: Affected Skin Folds Stop: 04/22/19 20:06 Miscellaneous (Fentanyl Patch Check Placement) 1 ea N/A QS [facility] Stop: 04/22/19 00:00 Last Admin: 03/28/19 15:25 Dose: 1 ea Documented by: Miscellaneous (Fentanyl Patch Remove & Waste) 1 ea N/A Q3D [facility] Stop: 04/24/19 18:59 Last Admin: 03/25/19 17:49 Dose: 1 ea Documented by: Miscellaneous (Remove Nicoderm Patch) 1 ea N/A HS [facility] Stop: 04/21/19 20:59 Last Admin: 03/27/19 20:33 Dose: 1 ea Documented by: Miscellaneous (Order Awaiting Action) 1 ea N/A QS [facility] Stop: 04/22/19 00:00 Last Admin: 03/28/19 15:18 Dose: Not Given Documented by: Nicotine (Nicoderm Cq) 21 mg TD QAM [facility] Stop: 04/22/19 08:59 Last Admin: 03/28/19 08:17 Dose: 21 mg Documented by: Ondansetron HCl (Zofran) 4 mg IV Q6H PRN PRN Reason: Nausea Stop: 04/21/19 17:44 Oxycodone HCl (Roxicodone Immediate Rel) 10 mg PO Q6H PRN PRN Reason: Pain Stop: 04/05/19 16:32 Last Admin: 03/28/19 15:14 Dose: 10 mg Documented by: Pantoprazole Sodium (Protonix) 40 mg PO BID [facility] Stop: 04/26/19 20:59 Last Admin: 03/28/19 08:13 Dose: 40 mg Documented by: Polyethylene Glycol (Miralax Powder Packet) 17 gm PO BID PRN PRN Reason: constipation Stop: 04/24/19 08:59 Tamsulosin HCl (Flomax) 0.4 mg PO QAM [facility] Stop: 04/28/19 08:59 PG Care Time/CCT Total # of Minutes Spent Total Time Spent with Patient: Total time spent is greater than 50% in coordination of care (as documented) at patient's floor/unit and/or counseling patient: Resident Activity Tracking Resident Involvement: Resident Care Provided Care Provided: Adult Hospital Medicine
[2019-03-28] MEDS: ATORVASTATIN 40 MG TAB PO SCH (21:05)
[2019-03-28] MEDS: fentaNYL 12 MCG/HR TDSY TD SCH (21:07)
[2019-03-29] MEDS: CHECK FENTANYL PATCH PLACEMENT SCH ×2 (00:18→08:15)
[2019-03-29] MEDS: ALBUT/IPRATROP 3MG/0.5MG NEB 3 ML VIAL NEB SCH ×2 (07:06→11:13)
[2019-03-29] MEDS: BUDESONIDE 0.5 MG/2 ML VIAL (PULMICORT) NEB SCH (07:06)
[2019-03-29] MEDS: ENALAPRIL MALEATE 10 MG TAB PO SCH (08:04)
[2019-03-29] MEDS: PANTOprazole 40 MG TAB PO SCH (08:05)
[2019-03-29] MEDS: dilTIAZem HCL 120 MG CAPCR PO SCH (08:05)
[2019-03-29] MEDS: guaiFENesin 600 MG TABCR PO SCH (08:06)
[2019-03-29] MEDS: NICOTINE 21 MG/24 HR TDSY TD SCH (08:07)
[2019-03-29] MEDS: OXYCODONE HCL IR 5 MG TAB (IMMEDIATE RELEASE) PO PRN ×2 (08:34→14:13)
[2019-03-29] MEDS ORDERED: TAMSULOSIN HCL 0.4 MG CAP PO SCH (09:00)
[2019-03-29 10:21] LABS: Appearance Urine Clear (Clear); Bilirubin Urine Negative (Negative); Blood Urine Negative (Negative); Color Urine Yellow; Glucose Urine UA Negative (Negative); Ketones Urine Negative (Negative); Leukocyte Esterase Urine Negative (Negative); Nitrite Urine Negative (Negative); Protein Urine Negative (Negative); Specific Gravity Urine 1.015 (1.000-1.030); Urobilinogen Urine Negative (Negative)
[2019-03-29] MEDS: METHYLNALTREXONE BROMIDE 12 MG/0.6 ML VIAL SQ SCH (13:32)
== END 2019-03-29 14:50 | DRG 812 ==
LOC: ED 12:58 → SUATTDRO 16:05 → 2N 16:05

== ENCOUNTER 2019-08-09 12:18 | Inpatient (IN) ==
[2019-08-09] MEDS ORDERED: SODIUM CHLORIDE 0.9% 1000ML 1,000 ML IV SCH (14:00)
--- NOTE | 2019-08-09 14:17 | XRay Report ---
XR chest 1V portable HISTORY: 74 years-old Male weakness acute weakness COMPARISON: Acute abdominal series radiographs 06/06/2018, chest CT 12/24/2018. TECHNIQUE: Portable AP view of the chest FINDINGS: Cardiac silhouette is enlarged, unchanged. Lungs are hypoinflated. No pneumothorax. Small right pleur al effusion with progressively worsened right midlung and right lung base opacities. The previously n oted masslike opacity is partially obscured secondary to the consolidation. Right shoulder rotator cu ff calcific tendinosis. Degenerative changes of the shoulders and spine. IMPRESSION: 1. Progressive right midlung and right lung base opacities with small right pleural effusion suggesti ve of pneumonia or aspiration pneumonitis. 2. The previously described 6.0 cm right basilar mass is partially obscured secondary to the consolid ation. The above report was generated using voice recognition software. It may contain grammatical, syntax o r spelling errors. Electronically signed by: Jose Luis Jones M.D. 08/09/2019 2:16 PM
--- NOTE | 2019-08-09 14:34 | CT Scan Report ---
CT head/brain wo con CT DOSE: 614.27 mGy.cm HISTORY: Mental status change weak TECHNIQUE: Multiaxial CT images of the head were performed without the use of intravenous contrast. A dose lowering technique was utilized adhering to the principles of ALARA. Comparison: None. Findings: Trace amount of fluid within all major sinuses. Bony density is diminished consistent with osteopenia. No acute intracranial abnormality. Age-related atrophy and chronic small vessel change. Impression: 1. No acute intracranial abnormality. 2. Age-related change. 3. Osteopenia of the bony structures The above report was generated using voice recognition software. It may contain grammatical, syntax or spelling errors. Electronically signed by: Charly Cotter M.D. 08/09/2019 2:33 PM
[2019-08-09 14:51] LABS: Basophils # (auto) 0.02 K/uL (0-0.2); Basophils % (auto) 0.2 %; Eosinophils # (auto) 0.03 K/uL (0-0.5); Eosinophils % (auto) 0.3 %; Hematocrit (blood only) 33.6 % (42-52); Hemoglobin 10.5 g/dL (14.0-18.0); Immature Granulocytes # (auto) 0.02 K/uL (0.00-0.02); Immature Granulocytes % (auto) 0.2 %; Lymphocytes # (auto) 0.83 K/uL (1.2-3.4); Lymphocytes % (auto) 7.7 %; Mean Corpuscular Hemoglobin 28.8 pg (25-34); Mean Corpuscular Hgb Conc 31.3 g/dL (32-36); Mean Corpuscular Volume 92.1 fL (80-100); Mean Platelet Volume 9.2 fL (7.4-10.4); Monocytes % (auto) 5.5 %; Neutrophils # (auto) 9.32 K/uL (1.4-6.5); Neutrophils % (auto) 86.1 %; Platelet Count 189 K/uL (130-400); RDW Coefficient of Variation 18.3 % (11.5-14.5); RDW Standard Deviation 62.2 fL (36.4-46.3); Red Blood Count 3.65 M/uL (4.7-6.1); White Blood Count 10.82 K/uL (4.8-10.8)
[2019-08-09 14:56] LABS: INR 1.1 (0.9-1.1); Prothrombin Time 11.6 Seconds (9.0-12.0)
[2019-08-09 15:45] LABS: Alanine Aminotransferase 10 U/L (12-78); Albumin Globulin Ratio 0.7 (0.9-2); Alkaline Phosphatase 97 U/L (45-117); Aspartate Aminotransferase 7 U/L (15-37); BUN Creatinine Ratio 24.9 (10-20); Bilirubin,Total 0.4 mg/dl (0.2-1); Blood Urea Nitrogen 27 mg/dl (7-18); Carbon Dioxide 27 mmol/L (21-32); Chloride 104 mmol/L (98-107); Creatinine Clr Calc Pharmacy 54.1 ml/min; Est GFR (African American) 75.2; Est GFR (Non-African American) 64.9; Globulin 4.3 gm/dl (2.5-4.0); Glucose 105 mg/dl (70-99); Magnesium 1.4 mg/dl (1.8-2.4); Potassium 5.1 mmol/L (3.5-5.1); Sodium 137 mmol/L (136-145); Thyroid Stimulating Hormone 0.582 uIu/ml (0.300-4.500); Total Protein 7.3 gm/dl (6.4-8.2); Troponin I < 0.015 ng/ml (0-0.045)
[2019-08-09] MEDS ORDERED: cefTRIAXone SODIUM 1,000 MG/50 ML BAG IV STA (16:21)
[2019-08-09] MEDS ORDERED: ENOXAPARIN INJ 40 MG/0.4 ML SYR SQ SCH (17:30)
[2019-08-09] MEDS ORDERED: MAGNESIUM HYDROXIDE SUSP 30 ML UDC PO PRN (17:50)
[2019-08-09] MEDS ORDERED: POLYETHYLENE (MIRALAX) 17 GM PACK PO PRN (17:50)
[2019-08-09] MEDS ORDERED: ONDANSETRON INJ 2 MG/ML 2 ML VIAL IV PRN (17:50)
[2019-08-09] MEDS ORDERED: BENZONATATE 100 MG CAPSULE PO PRN (17:50)
[2019-08-09] MEDS ORDERED: NON-FORMULARY MEDICATION (Acetaminophen 500 MG) PO PRN (17:50)
[2019-08-09] MEDS ORDERED: NALOXEGOL 25 MG PO SCH (17:50)
[2019-08-09] MEDS ORDERED: ALUMINUM/MAGNESIUM SUSP 30 ML UDC PO PRN (17:50)
[2019-08-09] MEDS ORDERED: ALBUT/IPRATROP 3MG/0.5MG NEB 3 ML VIAL NEB PRN (17:53)
[2019-08-09 18:24] LABS: Appearance Urine Clear (Clear); Bilirubin Urine Negative (Negative); Blood Urine Negative (Negative); Color Urine Yellow; Glucose Urine UA Negative (Negative); Ketones Urine 1+ (Negative); Leukocyte Esterase Urine Negative (Negative); Nitrite Urine Negative (Negative); Protein Urine Negative (Negative); Specific Gravity Urine 1.016 (1.000-1.030); Urobilinogen Urine Negative (Negative)
[2019-08-09] MEDS: LEVOFLOXACIN/D5W 750 MG/150 ML BAG IV SCH (18:30)
--- NOTE | 2019-08-09 18:30 | History & Physical Report ---
Date of Service August 09, 2019 Assessment & Plan (1) Hypercalcemia: Mr. Shay Hodges is a 74 y/o male with past medical hx of metastatic squamous cell lung ca, COPD, HTN, charcot-tish tooth, who was admitted to [facility] for Hypercalcemia and aspiration pneumonia. - Value of 13.0 in ED - Will treat with IV Fluids and Lasix 40mg IV - Consider Bisphosphonate in the AM (2) Pneumonia: - Aspiration pneumonia - Continue with Levaquin started in ED - Supplemental O2 humidified to value of 92% - Aspiration precautions (3) Therapeutic opioid-induced constipation (OIC): - continue with home docusate - Miralax PRN - c/w home Movantik (4) Supplemental oxygen dependent: Supplemental O2 to maintain 92% (5) Need for comfort care: - Consider for Palliative Care if available over weekend for consult - Consider hospice care - Patient is a DNR/DNI (6) Stage IV squamous cell carcinoma of lung: - No current treatment - Followed with Dr. Wu in past - Cachexic from cancer with poor appetite, Dietary consulted (7) COPD (chronic obstructive pulmonary disease): - Continue with home inhalers - Duonebs PRN (8) Weakness: Multifactorial from poor PO intake and Hypercalcemia (9) Ztfaqtc-Ppgxe-Ftfkq disease-like deformity of foot: Right foot deformity; with noted chronic ulcerations that are non- infectious (10) History of alcoholism: in remission; no need for AWSS; noted in history (11) DVT prophylaxis: Lovenox 40mg SQ (12) Hypomagnesemia: Value of 1.4 in ED, will replace History of Present Illness Chief Complaint: Hypercalcemia; pneumonia Primary Care Provider: Des Salas MD Mr. Shay Hodges is a 74 y/o male with past medical hx of metastatic squamous cell lung ca, COPD, HTN, charcot-tish tooth, who presented to [facility] for CC of Weakness. He notes [employer] he fell twice from lower extremity weakness while trying to get down to sit on commode. His was able to help him up and he was without injury from the fall, but was unable to ambulate for significant distance. He denies any injury. He notes over 100 pack year smoking history. He was diagnosed with SCC of Lung about 2 years ago and followed with Dr. Wu. He underwent Radiation treatments x30, a couple rounds of chemo, but then withdrew treatment. His notes that he does not eat or drink and he notes poor appetite "nothing tastes good." He recently saw his PCP Dr. Salas and opted for comfort care measures, but is still wanting treatment with antibiotics, IV fluids, electrolyte replacements, but doesn't want intubation or invasive procedures. He endorses a DNR/DNI status in event of a code. He notes being on 3.5L at home of supplemental oxygen. He currently has a Fentanyl and Nicoderm patch on. He received 1L NSS in ED along with being stared on Levaquin for right midlung and right base opacities with presumed aspiration pneumonia. He also had a Head CT which was without acute process. His labs were remarkable for Hypercalcemia with value of 13.0 requiring inpatient admission status. Allergies Allergy/AdvReac Type Severity Reaction Status Date / Time amlodipine AdvReac Intermediate edema Verified 08/09/19 15:07 hydrochlorothiazide AdvReac Intermediate hyponatremi Verified 08/09/19 15:07 a doxycycline AdvReac Mild Nausea and Verified 08/09/19 15:07 abdominal pain Home Medications Home Medications Medication Instructions Recorded Confirmed Type cholecalciferol (vitamin D3) 2,000 unit PO HS 08/14/18 08/09/19 History [Vitamin D3] guaifenesin [Mucinex] 1,200 mg PO BID 08/14/18 08/09/19 History diltiazem HCl 120 mg 120 mg PO QAM #90 cap 02/04/19 08/09/19 Rx capsule,extended release 24 hr omeprazole 40 mg capsule,delayed 40 mg PO QPM #90 cap 02/04/19 08/09/19 Rx release Combivent Respimat 1 puff INHALATION QID #0 02/13/19 08/09/19 History acetaminophen 500 mg capsule 500 mg PO Q6H PRN 04/30/19 08/09/19 History benzonatate 200 mg PO Q8 PRN 06/06/19 08/09/19 History docusate sodium 100 mg PO BID 06/06/19 08/09/19 History methylnaltrexone 450 mg PO DAILYBB 06/06/19 08/09/19 History nicotine [Nicoderm CQ] 14 mg TOPICAL DAILY 06/06/19 08/09/19 History sodium chloride-aloe vera [[place] 1 spray INTRANASAL BID 06/06/19 08/09/19 History Saline Gel] beclomethasone dipropionate 80 2 puffs INH BID #10.6 gm 06/12/19 08/09/19 Rx mcg/actuation HFA breath activated aerosol naloxegol 25 mg tablet 25 mg PO ONCE #30 tab 06/14/19 08/09/19 Rx fentanyl 12 mcg/hr transdermal 1 patch TD Q72H #2 box 07/11/19 08/09/19 Rx patch enalapril maleate 20 mg tablet 40 mg PO DAILY #90 tab 07/19/19 08/09/19 Rx oxycodone 10 mg tablet 10 mg PO Q6H PRN #90 tab 08/05/19 08/09/19 Rx atorvastatin 40 mg PO HS 08/09/19 08/09/19 History potassium chloride [Klor-Con] 20 meq PO QAM 08/09/19 08/09/19 History Past Med/Surg History Medical History Aortic stenosis MILD TO MODERATE AORTIC STENOSIS BPH (benign prostatic hyperplasia) Zxzrhim-Sawui-Iwkqv disease Chronic back pain Chronic diastolic CHF (congestive heart failure) COPD (chronic obstructive pulmonary disease) (Chronic) GERD (gastroesophageal reflux disease) Gout Hearing deficit History of alcoholism PER RECORDS-"STOPPED A LONG TIME AGO" Hyperlipidemia Hypertension Hypertension Irregular heartbeat Mass of right lung Obesity On home oxygen therapy 2L PRN AND HS Osteoarthritis Peripheral arterial disease Squamous cell carcinoma lung right lung--radiation Tobacco use disorder Varicose veins of left lower extremity Surgical History History of colonoscopy History of left-sided carotid endarterectomy @ [facility] by Dr. Guzman History of right knee surgery History of tooth extraction all teeth removed S/P foot surgery x2--1 on each foot S/P thoracentesis NO FURTHER DETAILS Family History Father Family history of diabetes mellitus Myocardial infarction Other No family history of adverse response to anesthesia Social History Preferred Language: Irish Communication Ability: Effective Unclaimed Property Manager Required: No Beliefs That Will Affect Care: None marital status: Current Living Situation: Spouse Current Living Situation Comment: Lives with and oldest son Other Information That Helps Us Care for You: No Feels Safe at Home: Yes Safety Concerns: Feels Safe At This Time Smoking Status: Former smoker Tobacco Type: cigarettes ; Cigarettes Per Day: 30+ ; Second Hand Exposure: No ; Hx Alcohol Use: No Hx Substance Use: No Review of Systems Review of Systems: All systems reviewed & are unremarkable except as noted in HPI & below Constitutional: + weakness; no fever and no chills Eyes: + discharge; no loss of peripheral vision Ear, Nose, Mouth, Throat: no dizziness and no mouth lesions Respiratory: + cough and + dyspnea (chronic) Cardiovascular: no chest pain and no palpitations Gastrointestinal: + abdominal pain (chronic) and + constipation; no nausea, no vomiting and no blood in stools Genitourinary: no dysuria and no difficulty urinating Musculoskeletal: + deformity (chronic right foot) and + muscle weakness; no back pain Integumentary: no rash and no new lesions Neurologic: no seizure-like activity and no headache(s) Physical Exam Constitutional: + cachectic; no acute distress Eyes: PERRL and EOM intact bilaterally ENMT: external ear and nose normal, oropharynx normal Neck: normal visual inspection and trachea midline Respiratory: no respiratory distress Auscultation: + crackles (right anterior) and + wheezes (diffuse) Cardiovascular: Rate/Rhythm: regular rate and regular rhythm Extremities: no calf tenderness and no edema Gastrointestinal (Abdomen): Inspection/Auscultation: normal bowel sounds Percussion/Palpation: + abdomen tender (mild generalized); no guarding and abdomen not rigid Musculoskeletal: Head/Neck/Chest: normocephalic and head atraumatic Skin: various ecchymosis over hard extremities in different stages of healing Neurologic: moves all extremities and awake Psychiatric: A+Ox3, euthymic affect Results & Data Vital Signs (Past 12 Hours) Vital Signs Temp Pulse Pulse Resp BP BP Pulse Ox 08/09/19 14:02 84 18 108/53 L 96 08/09/19 12:40 97 08/09/19 12:33 37.0 C 87 22 117/62 97 Code Status & VTE Plan VTE Prophylaxis Plan VTE Prophylaxis will be ordered: Yes Supervising Physician Co-Signing Physician Notes I saw the patient concurrent with the resident physician and confirmed ramírez portions of the history and physical examination.I agree with the impression and plan as noted above. This pleasant 74-year-old male was admitted to [facility] back in March, After which time he was discharged to a nursing facility than a personal mcc and then back to his home sometime in May of this year. It sounds as if he did well for the first month or so but then about 3 to 4 weeks ago started to develop progressive weakness.His states that his appetite has markedly declined especially over the last 2 weeks.He denies any increased cough or shortness of breath over his baseline. His main complaint is the weakness.Today when attempting to use the bathroom in the process of lowering himself down to the seatHe tells me that he pretty much fell onto the seat as he was unable to sustain his own weight and lower himself down slowly. Upon examination, he is alert and oriented. No acute distress. He does appear to be chronically ill and cachectic. Heart regular rate and rhythm.Lung sounds are globally decreased with prolonged expiratory phase. Abdomen is soft. Nontender. Extremities without edema Noted muscle wasting. Chest x-ray suggestive of pneumonia Laboratory significant for hypercalcemia Impression Hypercalcemia, secondary to malignancy Pneumonia Lung cancer, Squamous cell Cachexia of malignancy Plan Levaquin IV fluids; Monitor calcium; Lasix; bisphosphonate if does not improve. Palliative consultation Resident Activity Tracking Resident Involvement: Resident Care Provided (salina, ) Care Provided: Adult Hospital Medicine (1) Stage IV squamous cell carcinoma of lung Laterality: right Qualified Code(s): C34.91 - Malignant neoplasm of unspecified part of right bronchus or lung (2) COPD (chronic obstructive pulmonary disease) COPD type: emphysema Emphysema type: unspecified Qualified Code(s): J43.9 - Emphysema, unspecified (3) Pneumonia Laterality: right Lung location: middle lobe of lung Pneumonia type: due to unspecified organism Qualified Code(s): J18.9 - Pneumonia, unspecified organism
--- NOTE | 2019-08-09 18:47 | Emergency Department Note ---
Entered by Josefa Driver acting as a scribe for Balwinder Maldonado DO History of Present Illness General Chief complaint: Weakness Source: patient History of Present Illness Onset (ago): hour(s) (today) Location: head (general) Pain Consistency: + other (episode) Maximum Pain Intensity: 6 Quality: + other (weakness) Associated symptoms: + other (negative diarrhea); no chest pain, no nausea/vomiting and no shortness of breath The patient is a 74 year old male with PMHx of lung cancer, COPD, BPH, CHF, HLD, HTN, and GERD who presents to the Emergency Room with complaints of an episode of weakness today. The patient states that he fell backwards into his wall and slid down onto the floor. He denies hitting his head. The patient denies pain, chest pain, shortness of breath, nausea, vomiting, and diarrhea. The patient states that he is not on blood thinners. He states that he is on 2L of oxygen at all times. The patient's history and physical are limited secondary to mentat ion. Per report from EMS the gentleman has been more confused for the past 3 days. They note he had stopped chemo and radiation. Home Medications Home Medications Medication Instructions Recorded Confirmed Type cholecalciferol (vitamin D3) 2,000 unit PO HS 08/14/18 08/09/19 History [Vitamin D3] guaifenesin [Mucinex] 1,200 mg PO BID 08/14/18 08/09/19 History diltiazem HCl 120 mg 120 mg PO QAM #90 cap 02/04/19 08/09/19 Rx capsule,extended release 24 hr omeprazole 40 mg capsule,delayed 40 mg PO QPM #90 cap 02/04/19 08/09/19 Rx release Combivent Respimat 1 puff INHALATION QID #0 02/13/19 08/09/19 History acetaminophen 500 mg capsule 500 mg PO Q6H PRN 04/30/19 08/09/19 History benzonatate 200 mg PO Q8 PRN 06/06/19 08/09/19 History docusate sodium 100 mg PO BID 06/06/19 08/09/19 History methylnaltrexone 450 mg PO DAILYBB 06/06/19 08/09/19 History nicotine [Nicoderm CQ] 14 mg TOPICAL DAILY 06/06/19 08/09/19 History sodium chloride-aloe vera [Mccoy 1 spray INTRANASAL BID 06/06/19 08/09/19 History Saline Gel] beclomethasone dipropionate 80 2 puffs INH BID #10.6 gm 06/12/19 08/09/19 Rx mcg/actuation HFA breath activated aerosol naloxegol 25 mg tablet 25 mg PO ONCE #30 tab 06/14/19 08/09/19 Rx fentanyl 12 mcg/hr transdermal 1 patch TD Q72H #2 box 07/11/19 08/09/19 Rx patch enalapril maleate 20 mg tablet 40 mg PO DAILY #90 tab 07/19/19 08/09/19 Rx oxycodone 10 mg tablet 10 mg PO Q6H PRN #90 tab 08/05/19 08/09/19 Rx atorvastatin 40 mg PO HS 08/09/19 08/09/19 History potassium chloride [Klor-Con] 20 meq PO QAM 08/09/19 08/09/19 History Allergies Allergy/AdvReac Type Severity Reaction Status Date / Time amlodipine AdvReac Intermediate edema Verified 08/09/19 15:07 hydrochlorothiazide AdvReac Intermediate hyponatremi Verified 08/09/19 15:07 a doxycycline AdvReac Mild Nausea and Verified 08/09/19 15:07 abdominal pain Past Med/Surg History Medical History Aortic stenosis MILD TO MODERATE AORTIC STENOSIS BPH (benign prostatic hyperplasia) Xytqvai-Omjrq-Xvorl disease Chronic back pain Chronic diastolic CHF (congestive heart failure) COPD (chronic obstructive pulmonary disease) (Chronic) GERD (gastroesophageal reflux disease) Gout Hearing deficit History of alcoholism PER RECORDS-"STOPPED A LONG TIME AGO" Hyperlipidemia Hypertension Hypertension Irregular heartbeat Mass of right lung Obesity On home oxygen therapy 2L PRN AND HS Osteoarthritis Peripheral arterial disease Squamous cell carcinoma lung right lung--radiation Tobacco use disorder Varicose veins of left lower extremity Surgical History History of colonoscopy History of left-sided carotid endarterectomy @ [facility] by Dr. 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 Physical Exam Vital Signs Vital Signs - 24 hr 08/09/19 12:33 08/09/19 12:40 08/09/19 14:02 Temperature 37.0 C Temperature Source Oral Pulse Rate 87 Pulse Rate [Finger] 84 Respiratory Rate 22 18 Respiratory Effort / Characteristics Spontaneous Blood Pressure 117/62 Blood Pressure [Right Arm] 108/53 L Blood Pressure Mean 80 Blood Pressure Mean [Right Arm] 71 Pulse Oximetry 97 97 96 Oxygen Delivery Method Nasal Cannula Nasal Cannula Nasal Cannula Oxygen Flow Rate 2 2 2 Sepsis Recent Fever Within 48 Hours No Sepsis New/Unexplained Change in Mental Status No Sepsis Action Taken by Nursing No Action Required GENERAL: Chronically ill-appearing, sitting on edge of bed trying to urinate, non-toxic. Confused to EYE EXAM: normal conjunctiva OROPHARYNX: no exudate, no erythema, lips, buccal mucosa, and tongue normal and mucous membranes are moist NECK: supple, no nuchal rigidity, no adenopathy, non-tender LUNGS: Clear to auscultation. Normal chest wall mechanics HEART: no murmurs, S1 normal and S2 normal ABDOMEN: abdomen soft, non-tender, normo-active bowel sounds, no masses, no rebound or guarding. BACK: Back is symmetrical on inspection and there is no deformity, no midline tenderness, no CVA tenderness. SKIN: no rashes and no bruising UPPER EXTREMITIES: upper extremities are grossly normal. LOWER EXTREMITIES: No pitting edema. Flexion and extension of the hips, knees, ankles, and EHL 5/5 bilaterally. Gross sensation is intact. DPs are 2/4 bilateral. NEURO EXAM: Oriented to person but not place or year. cranial nerves II-XII grossly intact, normal speech, no gross weakness of arms, no gross weakness of legs. Course Course ED COURSE: Vital signs were reviewed and showed normal. The patients medical record was reviewed The above diagnostic studies were performed and reviewed. ED treatments and interventions as stated above. 1339: The patient was evaluated in room A11B. A complete history and physical examination was performed. 1629: Upon reevaluation, the patient is resting comfortably. I discussed my findings with the patient and he understands and agrees with the treatment plan. Based on the patients age, coexisting illnesses, exam and lab findings the decision to treat as an inpatient was made. The patient remained stable while under my care. 1637: The patient will be evaluated for further management. I discussed the case with Farheen [facility] who accepts the patient for further evaluation under Dr. [facility] Hospitalist service. Administered Medications Levofloxacin/Dextrose (Levaquin/D5w) 750 mg in 150 mls @ 100 mls/hr IV Q24H PRISCA Stop: 08/23/19 16:29 Last Admin: 08/09/19 18:30 Dose: 100 mls/hr Documented by: [id number] Discontinued Medications Sodium Chloride (Nss 1000ml) 1,000 mls @ 999 mls/hr IV .Q1H1M PRISCA Stop: 08/09/19 15:00 Last Admin: 08/09/19 14:34 Dose: 999 mls/hr Documented by: [id number] Ceftriaxone Sodium (Rocephin) 1,000 mg in 50 mls @ 100 mls/hr IV NOW STA Stop: 08/09/19 16:50 Last Admin: 08/09/19 17:33 Dose: 100 mls/hr Documented by: [id number] Medical Decision Making Differential Diagnosis Differential Diagnosis includes but is not limited to dehydration, stroke, anemia, hypoglycemia, hyponatremia, hypernatremia, urinary tract infection, pneumonia, bronchitis, sepsis, gastroenteritis, additional abdominal pathology, metabolic abnormalities and infections. Medical Records Attestation: I reviewed the patient's medical records. Home Medications Current Medication List: was personally reviewed by me Laboratory Data Attestation: I reviewed the patient's lab results. Result diagrams: 08/09/19 14:18 08/09/19 14:18 Lab Results 08/09/19 08/09/19 08/09/19 Range/Units 14:18 14:18 14:18 WBC 10.82 H (4.8-10.8) K/uL RBC 3.65 L (4.7-6.1) M/uL Hgb 10.5 L (14.0-18.0) g/dL Hct 33.6 L (42-52) % MCV 92.1 (80-100) fL MCH 28.8 (25-34) pg MCHC 31.3 L (32-36) g/dL RDW Std Deviation 62.2 H (36.4-46.3) fL RDW Coeff of Tuan 18.3 H (11.5-14.5) % Plt Count 189 (130-400) K/uL MPV 9.2 (7.4-10.4) fL Immature Gran % (Auto) 0.2 % Neut % (Auto) 86.1 % Lymph % (Auto) 7.7 % Sharp % (Auto) 5.5 % Eos % (Auto) 0.3 % Baso % (Auto) 0.2 % Immature Gran # (Auto) 0.02 (0.00-0.02) K/uL Neut # (Auto) 9.32 H (1.4-6.5) K/uL Lymph # (Auto) 0.83 L (1.2-3.4) K/uL Sharp # (Auto) 0.60 H (0.11-0.59) K/uL Eos # (Auto) 0.03 (0-0.5) K/uL Baso # (Auto) 0.02 (0-0.2) K/uL PT 11.6 (9.0-12.0) Seconds INR 1.1 (0.9-1.1) Sodium 137 (136-145) mmol/L Potassium 5.1 (3.5-5.1) mmol/L Chloride 104 (98-107) mmol/L Carbon Dioxide 27 (21-32) mmol/L Anion Gap 6.0 (3-11) BUN 27 H (7-18) mg/dl Creatinine 1.10 (0.6-1.4) mg/dl Est Cr Clr Drug Dosing 54.1 ml/min Est GFR ( Amer) 75.2 Est GFR (Non-Af Amer) 64.9 BUN/Creatinine Ratio 24.9 H (10-20) Glucose 105 H (70-99) mg/dl Calcium 13.0 H* (8.5-10.1) mg/dl Magnesium 1.4 L (1.8-2.4) mg/dl Total Bilirubin 0.4 (0.2-1) mg/dl AST 7 L (15-37) U/L ALT 10 L (12-78) U/L Alkaline Phosphatase 97 (45-117) U/L Troponin I < 0.015 (0-0.045) ng/ml Total Protein 7.3 (6.4-8.2) gm/dl Albumin 3.0 L (3.4-5.0) gm/dl Globulin 4.3 H (2.5-4.0) gm/dl Albumin/Globulin Ratio 0.7 L (0.9-2) TSH 0.582 (0.300-4.500) uIu/ml Urine Color Urine Appearance (Clear) Urine pH (4.5-7.5) Ur Specific [place] (1.000-1.030) Urine Protein (Negative) Urine Glucose (UA) (Negative) Urine Ketones (Negative) Urine Blood (Negative) Urine Nitrite (Negative) Urine Bilirubin (Negative) Urine Urobilinogen (Negative) Ur Leukocyte Esterase (Negative) 08/09/19 Range/Units 17:40 WBC (4.8-10.8) K/uL RBC (4.7-6.1) M/uL Hgb (14.0-18.0) g/dL Hct (42-52) % MCV (80-100) fL MCH (25-34) pg MCHC (32-36) g/dL RDW Std Deviation (36.4-46.3) fL RDW Coeff of Tuan (11.5-14.5) % Plt Count (130-400) K/uL MPV (7.4-10.4) fL Immature Gran % (Auto) % Neut % (Auto) % Lymph % (Auto) % Sharp % (Auto) % Eos % (Auto) % Baso % (Auto) % Immature Gran # (Auto) (0.00-0.02) K/uL Neut # (Auto) (1.4-6.5) K/uL Lymph # (Auto) (1.2-3.4) K/uL Sharp # (Auto) (0.11-0.59) K/uL Eos # (Auto) (0-0.5) K/uL Baso # (Auto) (0-0.2) K/uL PT (9.0-12.0) Seconds INR (0.9-1.1) Sodium (136-145) mmol/L Potassium (3.5-5.1) mmol/L Chloride (98-107) mmol/L Carbon Dioxide (21-32) mmol/L Anion Gap (3-11) BUN (7-18) mg/dl Creatinine (0.6-1.4) mg/dl Est Cr Clr Drug Dosing ml/min Est GFR ( Amer) Est GFR (Non-Af Amer) BUN/Creatinine Ratio (10-20) Glucose (70-99) mg/dl Calcium (8.5-10.1) mg/dl Magnesium (1.8-2.4) mg/dl Total Bilirubin (0.2-1) mg/dl AST (15-37) U/L ALT (12-78) U/L Alkaline Phosphatase (45-117) U/L Troponin I (0-0.045) ng/ml Total Protein (6.4-8.2) gm/dl Albumin (3.4-5.0) gm/dl Globulin (2.5-4.0) gm/dl Albumin/Globulin Ratio (0.9-2) TSH (0.300-4.500) uIu/ml Urine Color Yellow Urine Appearance Clear (Clear) Urine pH 5.0 (4.5-7.5) Ur Specific [place] 1.016 (1.000-1.030) Urine Protein Negative (Negative) Urine Glucose (UA) Negative (Negative) Urine Ketones 1+ H (Negative) Urine Blood Negative (Negative) Urine Nitrite Negative (Negative) Urine Bilirubin Negative (Negative) Urine Urobilinogen Negative (Negative) Ur Leukocyte Esterase Negative (Negative) Imaging Data Radiologist's Impression: Radiology results as stated below per my review and the radiologist's interpretation: XR chest 1V portable HISTORY: 74 years-old Male weakness acute weakness COMPARISON: Acute abdominal series radiographs 06/06/2018, chest CT 12/24/2018. TECHNIQUE: Portable AP view of the chest FINDINGS: Cardiac silhouette is enlarged, unchanged. Lungs are hypoinflated. No pneumothorax. Small right pleural effusion with progressively worsened right midlung and right lung base opacities. The previously noted masslike opacity is partially obscured secondary to the consolidation. Right shoulder rotator cuff calcific tendinosis. Degenerative changes of the shoulders and spine. IMPRESSION: 1. Progressive right midlung and right lung base opacities with small right pleural effusion suggestive of pneumonia or aspiration pneumonitis. 2. The previously described 6.0 cm right basilar mass is partially obscured secondary to the consolidation. The above report was generated using voice recognition software. It may contain grammatical, syntax or spelling errors. Electronically signed by: Jose Luis Jones M.D. 08/09/2019 2:[address] head/brain wo con CT DOSE: 614.27 mGy.cm HISTORY: Mental status change weak TECHNIQUE: Multiaxial CT images of the head were performed without the use of intravenous contrast. A dose lowering technique was utilized adhering to the principles of ALARA. Comparison: None. Findings: Trace amount of fluid within all major sinuses. Bony density is dimin ished consistent with osteopenia. No acute intracranial abnormality. Age-related atrophy and chronic small vessel change. Impression: 1. No acute intracranial abnormality. 2. Age-related change. 3. Osteopenia of the bony structures The above report was generated using voice recognition software. It may contain grammatical, syntax or spelling errors. Electronically signed by: Charly Cotter M.D. 08/09/2019 2:33 PM ECG Data Attestation: I personally reviewed and interpreted this ECG as follows: Indication: + weakness Rate (beats per minute): 82 Rhythm: + sinus rhythm ECG Intervals/blocks: + Normal QT-c ECG Cantil: + Left axis deviation ECG Findings: no PVCs Blood Pressure Blood Pressure Findings: Normal blood pressure MDM Narrative Patient is a 74-year-old male with a past medical history of squamous cell carcinoma stage IV the presents the ER from EMS for confusion for the past 3 days along with 2 falls. IV was established blood work is obtained. On evaluation gentleman is confused. Labs show mild leukocytosis at 10.8 thousand. No significant anemia. INR was unremarkable. BMP was unremarkable as well with exception of a calcium of 13. Magnesium was slightly low at 1.4. No transaminitis. Troponin was negative. TSH unremarkable. UA was negative. [place] anders did appear dehydrated. He was given IV fluids. CT head was negative. Chest x-ray with right lung opacities. Question if this is progression of disease versus pneumonia. Patient was covered with IV antibiotics updated bedside and discussed with hospitalist for observation and further work-up. Impression & Plan AMS (altered mental status), Hypercalcemia, Pneumonia, Mass of right lung Discharge Plan Visit Data Chief Complaint: Weakness ED Provider: Balwinder Maldonado Discharge Problem: AMS (altered mental status), Hypercalcemia, Pneumonia, Mass of right lung Patient Disposition: Being Evaluated by Hospitalist Forms Stand Alone Forms: My [facility] Prescriptions Prescriptions: No Action diltiazem HCl 120 mg capsule,extended release 24hr 120 mg PO QAM Qty: 90 RF: 3 omeprazole 40 mg capsule,delayed release(DR/EC) 40 mg PO QPM Qty: 90 RF: 3 Qvar RediHaler 80 mcg/actuation HFA aerosol breath activated 2 puffs INH BID Qty: 10.6 RF: 3 Movantik 25 mg tablet 25 mg PO ONCE Qty: 30 RF: 5 fentanyl 12 mcg/hr patch 72 hour 1 patch TD Q72H Qty: 2 RF: 0 enalapril maleate 20 mg tablet 40 mg PO DAILY Qty: 90 RF: 3 oxycodone 10 mg tablet 10 mg PO Q6H PRN (Reason: pain) Qty: 90 RF: 0 Combivent Respimat 20-100 mcg/actuation Mist 1 puff INHALATION QID Qty: 0 RF: 0 acetaminophen 500 mg capsule 500 mg PO Q6H PRN (Reason: Pain) RF: 0 guaifenesin [Mucinex] 1,200 mg Tablet Extended Release 12hr 1,200 mg PO BID RF: 0 cholecalciferol (vitamin D3) [Vitamin D3] 2,000 unit Capsule 2,000 unit PO HS RF: 0 nicotine [Nicoderm CQ] 14 mg/24 hr Patch 24 Hour 14 mg topical DAILY RF: 0 benzonatate 200 mg Capsule 200 mg PO Q8 PRN (Reason: Cough) RF: 0 docusate sodium 100 mg Capsule 100 mg PO BID RF: 0 Mccoy Saline Gel Phillips,Non-Aerosol 1 spray INTRANASAL BID RF: 0 methylnaltrexone 150 mg Tablet 450 mg PO DAILYBB RF: 0 atorvastatin 40 mg tablet 40 mg PO HS RF: 0 potassium chloride [Klor-Con] 20 mEq packet 20 meq PO QAM RF: 0 Referrals Referrals: Des Salas MD [Primary Care Provider] - Discharge Problem: AMS (altered mental status) Qualifiers: Altered mental status type: unspecified Qualified Code(s): R41.82 - Altered mental status, unspecified Pneumonia Qualifiers: Pneumonia type: due to unspecified organism Laterality: right Lung location: middle lobe of lung Qualified Code(s): J18.9 - Pneumonia, unspecified organism The scribe's documentation has been prepared under my direction and personally reviewed by me in its entirety. I confirm that the note above accurately reflects all work, treatment, procedures, and medical decision making performed by me.
[2019-08-09] MEDS: ENOXAPARIN INJ 40 MG/0.4 ML SYR SQ SCH (19:20)
[2019-08-09] MEDS: ENALAPRIL MALEATE 10 MG TAB PO SCH (19:36)
[2019-08-09] MEDS ORDERED: SODIUM CHLORIDE 0.9% 500 ML IV ONE (20:08)
[2019-08-09 20:57] LABS: Uric Acid 7.7 mg/dl (2.6-7.2)
[2019-08-09] MEDS ORDERED: SODIUM CHLORIDE ALOE VERA INTNAS SCH (21:00)
[2019-08-09] MEDS ORDERED: NON-FORMULARY MEDICATION (Omeprazole 40 MG) PO SCH (21:00)
[2019-08-09] MEDS ORDERED: [UNRECOGNIZED DRUG - OTHER] INTNAS SCH (21:00)
[2019-08-09] MEDS ORDERED: FUROSEMIDE 40 MG in SYRINGE 0 ML IV ONE (21:15)
[2019-08-09] MEDS ORDERED: MAGNESIUM SULFATE / D5W 1 GM/100 ML BAG IV ONE (21:30)
[2019-08-09] MEDS: DOCUSATE SODIUM 100 MG CAP PO SCH (21:43)
[2019-08-09] MEDS: IPRATROPIUM BROMIDE/ALBUTEROL respimat INH INH SCH (21:43)
[2019-08-09] MEDS: BECLOMETHASONE DIP HFA 80 MCG 8.7G INH INH SCH (21:44)
[2019-08-09] MEDS: OXYCODONE HCL IR 5 MG TAB (IMMEDIATE RELEASE) PO PRN (21:47)
[2019-08-09] MEDS: SODIUM CHLORIDE 0.9% 1000ML 1,000 ML IV SCH (22:14)
[2019-08-09] MEDS: guaiFENesin 600 MG TABCR PO SCH (23:28)
[2019-08-09] MEDS: CHECK FENTANYL PATCH PLACEMENT SCH (23:29)
[2019-08-10] MEDS ORDERED: METHYLNALTREXONE PO SCH (06:30)
[2019-08-10 06:55] LABS: Hematocrit (blood only) 31.6 % (42-52); Mean Corpuscular Hemoglobin 28.7 pg (25-34); Mean Corpuscular Hgb Conc 31.6 g/dL (32-36); Mean Corpuscular Volume 90.8 fL (80-100); Mean Platelet Volume 9.3 fL (7.4-10.4); Platelet Count 161 K/uL (130-400); RDW Coefficient of Variation 18.3 % (11.5-14.5); Red Blood Count 3.48 M/uL (4.7-6.1); White Blood Count 9.32 K/uL (4.8-10.8)
[2019-08-10 07:37] LABS: BUN Creatinine Ratio 24.3 (10-20); Calcium 12.6 mg/dl (8.5-10.1); Creatinine Clr Calc Pharmacy 62.2 ml/min; Est GFR (African American) 96.3; Est GFR (Non-African American) 83.1; Magnesium 1.4 mg/dl (1.8-2.4); Phosphorus 2.6 mg/dl (2.5-4.9); Uric Acid 7.1 mg/dl (2.6-7.2)
[2019-08-10] MEDS: SODIUM CHLORIDE 0.9% 1000ML 1,000 ML IV SCH ×2 (08:21→22:23)
[2019-08-10] MEDS: CHECK FENTANYL PATCH PLACEMENT SCH ×3 (08:21→23:02)
[2019-08-10] MEDS ORDERED: dilTIAZem HCL 120 MG CAPCR PO SCH (09:00)
[2019-08-10] MEDS: fentaNYL 12 MCG/HR TDSY TD SCH (09:01)
[2019-08-10] MEDS: POTASSIUM CHLORIDE PWD 20 MEQ PACK PO SCH (09:04)
[2019-08-10] MEDS: IPRATROPIUM BROMIDE/ALBUTEROL respimat INH INH SCH ×4 (09:05→20:44)
[2019-08-10] MEDS: BECLOMETHASONE DIP HFA 80 MCG 8.7G INH INH SCH ×2 (09:06→20:44)
[2019-08-10] MEDS: guaiFENesin 600 MG TABCR PO SCH ×2 (09:06→20:44)
[2019-08-10] MEDS: SALINE NASAL GEL (AYR) 14.1 GM TUBE SCH ×2 (09:06→20:47)
[2019-08-10] MEDS: DOCUSATE SODIUM 100 MG CAP PO SCH ×2 (09:10→20:47)
[2019-08-10] MEDS: OXYCODONE HCL IR 5 MG TAB (IMMEDIATE RELEASE) PO PRN ×2 (09:14→20:56)
[2019-08-10] MEDS: ENALAPRIL MALEATE 10 MG TAB PO SCH (09:29)
--- NOTE | 2019-08-10 14:36 | Hospitalist Progress Note ---
Date of Service August 10, 2019 Assessment & Plan (1) Hypercalcemia: Mr. Shay Hodges is a 74 y/o male with past medical hx of metastatic squamous cell lung ca, COPD, HTN, charcot-tish tooth, who was admitted to [facility] for Hypercalcemia and aspiration pneumonia. - Modest improvement with Lasix and fluids, but pressure soft this morning - Consult Oncology, appreciate recommendations - Will start the patient on Pamidronate 90 mg IV infused over 2 hours - Continue NS 100 cc/hr, hold enalapril (2) Pneumonia: - Aspiration pneumonia - Continue with Levaquin - Supplemental O2 humidified to value of 92% - Continue Aspiration precautions (3) Hypertension: - Soft pressures after treatment with Lasix - Hold Enalapril and Cardizem (4) Therapeutic opioid-induced constipation (OIC): - continue with home docusate - Miralax PRN - c/w home Movantik (5) Supplemental oxygen dependent: Supplemental O2 to maintain 92% (6) Stage IV squamous cell carcinoma of lung: - No current treatment - Followed with Dr. Wu in past - Cachexic from cancer with poor appetite, Dietary consulted (7) COPD (chronic obstructive pulmonary disease): - Continue with home inhalers - Duonebs PRN (8) Weakness: Multifactorial from poor PO intake and Hypercalcemia (9) Vmbybyx-Sdjlj-Nhhkm disease-like deformity of foot: Right foot deformity; with noted chronic ulcerations that are non- infectious (10) History of alcoholism: in remission; no need for AWSS; noted in history (11) DVT prophylaxis: Lovenox 40mg SQ (12) Hypomagnesemia: - Repleted Supervising Physician Co-Signing Physician Notes I saw the patient there is a physician and confirmed ramírez portions of the history and physical exam. Agree with the impression and plan as noted in the resident documentation. Impression Hypercalcemia, secondary to malignancy Pneumonia Lung cancer, Squamous cell Cachexia of malignancy Hypomagnesemia HTN Plan Continue Levaquin; repeat chest x-ray in a.m. Pamidronate IV today; repeat BMP in AM and daily, as effect usually is not seen for 2-3 days Hold Cardizem given low BPs Palliative consultation Oncology consultation PT/OT Subjective 74 yo male--patient is alert and oriented to person and place, but said it was Aug 23 in the 1999. He has poor concentration during interview. He denies any acute issues at this time. Review of Systems Constitutional: no fever Respiratory: no dyspnea Cardiovascular: no chest pain Gastrointestinal: no abdominal pain, no nausea, no vomiting and no diarrhea/loose stools Physical Exam Constitutional: + ill appearing, + thin and + cachectic Eyes: PERRL, conjunctivae normal, anicteric sclerae ENMT: external ear and nose normal, oropharynx normal Neck: trachea midline, no thyromegaly Respiratory: normal respiratory effort, lungs clear to auscultation Cardiovascular: RRR, no murmur, no edema Gastrointestinal (Abdomen): normal bowel sounds, soft, nontender, no hepatosplenomegaly Musculoskeletal: no cyanosis or clubbing, extremities motor strength 5/5 Skin: no rashes, warm and dry Neurologic: alert oriented to person and place, but not time Results & Data Vital Signs (Past 12 Hours) Vital Signs Temp Pulse Resp BP Pulse Ox 08/10/19 12:01 37.5 C 91 H 18 89/56 L 91 08/10/19 07:54 36.5 C 83 20 89/57 L 94 Resident Activity Tracking Resident Involvement: Resident Care Provided Care Provided: Adult Hospital Medicine (1) Stage IV squamous cell carcinoma of lung Laterality: right Qualified Code(s): C34.91 - Malignant neoplasm of unspecified part of right bronchus or lung (2) COPD (chronic obstructive pulmonary disease) COPD type: emphysema Emphysema type: unspecified Qualified Code(s): J43.9 - Emphysema, unspecified (3) Hypertension Hypertension type: essential hypertension Qualified Code(s): I10 - Essential (primary) hypertension (4) Pneumonia Laterality: right Lung location: middle lobe of lung Pneumonia type: due to unspecified organism Qualified Code(s): J18.9 - Pneumonia, unspecified organism
[2019-08-10] MEDS ORDERED: PAMIDRONATE DISODIUM 90 MG in SODIUM CHLORIDE 0.9% 1000ML 1,000 ML IV ONE (15:30)
[2019-08-10] MEDS ORDERED: [UNRECOGNIZED DRUG - REMARK] ONE (15:30)
[2019-08-10] MEDS: ENOXAPARIN INJ 40 MG/0.4 ML SYR SQ SCH (17:09)
[2019-08-10] MEDS: LEVOFLOXACIN/D5W 750 MG/150 ML BAG IV SCH (17:09)
[2019-08-10] MEDS: PANTOprazole 40 MG TAB PO SCH (17:10)
--- NOTE | 2019-08-10 18:16 | Consultation Report ---
DATE OF CONSULTATION: 08/10/2019 MEDICAL ONCOLOGY CONSULTATION REASON FOR CONSULTATION: A 74-year-old gentleman with metastatic squamous cell lung cancer, admitted for hypercalcemia. HISTORY OF PRESENT ILLNESS: Mr. Hodges is a very pleasant but unfortunate 74-year-old gentleman well known to [facility] was under my care previously for metastatic non-small cell lung cancer. Shay was diagnosed approximately 9 months ago with a large right-sided solitary cavitary lesion. He was not an optimal surgical candidate and thus recommended chemoradiation for which he deferred. We then provided sequential radiation therapy followed by salvage carboplatin and paclitaxel given in weekly fashion. His last chemotherapy was administered on 03/14/2019. He decided at that time to abandon further cytotoxic therapy. I have not seen Shay actually in several months. My residential advisor saw him back in March and he has not returned to our clinic since that time. I was alerted to the hospital as of this gentleman's not surprisingly rapid clinical decline. He was also found to be hypercalcemic on admission. Apparently, he has been falling frequently at home, the last episode while trying to sit down on the commode. Presently his is offering supportive care, but beyond that does not have medical scheduler coming in house on a regular basis. The patient endorses a DNR/DNI status. He continues supplemental oxygen. He also continues to utilize fentanyl for pain relief. PAST MEDICAL HISTORY: Significant for metastatic non-small cell lung cancer, aortic stenosis, benign prostatic hypertrophy, CMT disease, chronic diastolic CHF, COPD, gastroesophageal reflux, gout. He has a conductive hearing loss. He also has a history of alcoholism. Shay also suffers from hyperlipidemia, hypertension and osteoarthritis as well as peripheral vascular disease. PAST SURGICAL HISTORY: Includes colonoscopy, left carotid endarterectomy, status post right knee surgery, tooth extraction, foot surgery and thoracentesis. MEDICATIONS: Prior to admission include cholecalciferol 2000 units p.o. at bedtime, Mucinex 1200 mg p.o. b.i.d., diltiazem 120 mg p.o. daily, omeprazole 40 mg p.o. daily, Combivent inhaler 1 puff inhaled q.i.d., he utilizes Tylenol p.r.n., Tessalon Perles 200 mg p.o. q. 8 hours p.r.n. for cough, docusate sodium 100 mg p.o. b.i.d., methylnaltrexone 450 mg p.o. daily, Nicoderm patch 14 mg topically daily, enalapril 40 mg p.o. daily, oxycodone 10 mg p.o. q. 6 hours p.r.n., potassium chloride 20 mEq p.o. daily, atorvastatin and Pulmicort inhaler 2 puffs inhaled b.i.d. ALLERGIES: TO HYDROCHLOROTHIAZIDE, DOXYCYCLINE, AND AMLODIPINE. SOCIAL HISTORY: The patient is retired. He lives with his . He is a reformed smoker and reformed alcoholic. FAMILY HISTORY: Positive for coronary artery disease and diabetes mellitus. REVIEW OF SYSTEMS: A clear clinical decline. He appears much more cachectic. He admits to anorexia. GENERAL: Negative for fevers, chills or sweats. Shay also seems to be a bit slower in response, somewhat confused. SKIN: No rashes or lesions. Turgor is poor. No history of dermatoses. HEENT: He denies overt headaches. Positive for lightheadedness at time. Negative for vertigo. No acute visual deficits. He does have conductive hearing loss. No sinus symptoms, sore throat or dysphagia. LYMPH: No history of lymphoproliferative disease. CARDIAC: No current angina or palpitations. PULMONARY: He is oxygen dependent COPD patient, he is not acutely short of breath, dyspneic or orthopneic. He battles with chronic cough, no hemoptysis at present. GASTROINTESTINAL: Negative for abdominal pain, nausea, vomiting, diarrhea or constipation, hematochezia or melena stools. GENITOURINARY: History of BPH. No current hematuria, dysuria, urinary incontinence. MUSCULOSKELETAL: Diffuse musculoskeletal pains, specifically low back and lower abdomen areas. ENDOCRINE: Negative for diabetes or thyroid disease. NEUROLOGIC: Negative for seizure, stroke, or migraine headache. HEMATOLOGIC: Positive for anemia. PHYSICAL EXAMINATION: GENERAL: A very pleasant withdrawn 74-year-old gentleman, awake, alert, slow to respond, but does eventually get around to answering appropriately. VITAL SIGNS: Temperature 37.5, pulse 91, respiratory rate 18, blood pressure 89/56. SKIN: Turgor is quite poor at present. No acute rashes or lesions. No petechiae. HEENT: Atraumatic, normocephalic. Eyes: PERRLA, EOMI. Sclerae nonicteric. Nares patent without rhinorrhea or discharge. Throat is clear. The patient is edentulous. No buccal lesions or ulcerations. NECK: Supple. HEART: Regular rate and rhythm. PULMONARY: Breath sounds are distant. Could not appreciate overt wheezing or rhonchi. ABDOMEN: Soft, nontender, nondistended. EXTREMITIES: Musculoskeletal strength is equal as well as pulses in all 4 quadrants. No clubbing, cyanosis or edema. NEUROLOGICALLY: Grossly intact. He is awake, alert and oriented but certainly a bit lethargic. LABORATORY DATA: WBC count 9320, hemoglobin 10, platelet count 168,000. Calcium 12.6 with an albumin of 3 and thus probably corrected is close to 13.5 perhaps 14. RADIOGRAPHIC DATA: CT scan of the head essentially negative. Chest x-ray progressive right mid lung and right lung basilar opacities with small right pleural effusion suggestive of pneumonia or perhaps aspiration, previously described 6 cm right basilar mass, partially obscured attributable to consolidation. IMPRESSION: 1. Hypercalcemia, attributable to malignancy. 2. Aspiration pneumonia. 3. Therapeutic opioid-induced constipation. 4. Hypoxia. 5. Metastatic squamous cell carcinoma of the lung. 6. Exacerbation of chronic obstructive pulmonary disease. 7. Generalized weakness. PLAN: Mr. Hodges is a very pleasant unfortunate 74-year-old gentleman well known to [facility] previously under my care for metastatic non-small cell lung cancer. His treatment history is laid out in the history of present illness. This gentleman has not received any form of chemotherapy since mid March. I have actually not seen him in the office in quite some time. Clearly, he is in rapid clinical decline. Hypercalcemia again is probably being driven by progressing metastatic disease. Would proceed with pamidronate 60-90 mg intravenously over 2 hours along with IV saline hydration and perhaps intermittent low dose loop diuretic. At this point, Shay should be enrolled in some outpatient palliative perhaps hospice program moving forward. I am more than convinced Shay and his would most likely be agreeable to proceed in this fashion. I agree with medical management otherwise. Shay again stated he has no plans to start chemotherapy nor has he had any medical shape to do so. I appreciate the consultation. I will be starting vacation next week and Dr. Wood will be taking over service at that time. Thank you again for allowing me to participate in his care. GATO
[2019-08-10] MEDS ORDERED: Nursing to Pharmacy Communication ONE (20:36)
[2019-08-10] MEDS: ACETAMINOPHEN 500 MG TAB PO PRN (23:02)
[2019-08-10] MEDS ORDERED: SODIUM CHLORIDE 0.9% 1000ML 500 ML IV ONE (23:03)
[2019-08-11 05:49] LABS: Hematocrit (blood only) 27.2 % (42-52); Hemoglobin 8.5 g/dL (14.0-18.0); Mean Corpuscular Hemoglobin 28.4 pg (25-34); Mean Corpuscular Hgb Conc 31.3 g/dL (32-36); Mean Platelet Volume 9.4 fL (7.4-10.4); Platelet Count 124 K/uL (130-400); RDW Coefficient of Variation 18.3 % (11.5-14.5); RDW Standard Deviation 61.3 fL (36.4-46.3); Red Blood Count 2.99 M/uL (4.7-6.1); White Blood Count 7.16 K/uL (4.8-10.8)
[2019-08-11 06:13] LABS: Creatinine Clr Calc Pharmacy 73.8 ml/min; Est GFR (African American) 103.3; Est GFR (Non-African American) 89.1; Magnesium 1.2 mg/dl (1.8-2.4); Phosphorus 2.1 mg/dl (2.5-4.9); Potassium 4.3 mmol/L (3.5-5.1)
[2019-08-11] MEDS: BECLOMETHASONE DIP HFA 80 MCG 8.7G INH INH SCH ×2 (08:39→21:08)
[2019-08-11] MEDS: IPRATROPIUM BROMIDE/ALBUTEROL respimat INH INH SCH ×4 (08:40→21:08)
[2019-08-11] MEDS: guaiFENesin 600 MG TABCR PO SCH ×2 (08:40→21:07)
[2019-08-11] MEDS: POTASSIUM CHLORIDE PWD 20 MEQ PACK PO SCH (08:41)
[2019-08-11] MEDS: CHECK FENTANYL PATCH PLACEMENT SCH ×3 (08:43→23:22)
[2019-08-11] MEDS: SALINE NASAL GEL (AYR) 14.1 GM TUBE SCH ×2 (08:43→21:09)
[2019-08-11] MEDS ORDERED: MAGNESIUM OXIDE 400 MG TAB PO SCH (09:00)
[2019-08-11] MEDS: SODIUM CHLORIDE 0.9% 1000ML 1,000 ML IV SCH ×2 (09:02→21:05)
--- NOTE | 2019-08-11 10:00 | XRay Report ---
XR chest 2V PA/lateral HISTORY: 74 years-old Male pneumonia follow-up study in a patient with pneumonia COMPARISON: Chest radiographs 08/09/2019, chest CT 12/24/2018 TECHNIQUE: Portable AP and lateral views of the chest FINDINGS: Unchanged cardiomegaly. No pneumothorax. Pulmonary vascular congestion with mild interstitial coarsen ing. New left lung base alveolar opacities. Progressive right midlung and right lung base consolidati on with associated right pleural effusion. Cavitary mass of the right lung base redemonstrated. No pn eumothorax. Degenerative changes of the shoulders and spine. IMPRESSION: 1. Cardiomegaly with pulmonary vascular congestion and interval development of mild interstitial coar sening suggestive of pulmonary edema. 2. New left lung base opacities suggestive of atelectasis or pneumonitis. 3. Mildly progressed right lung base consolidation with right pleural effusion. 4. Cavitary mass of the right lung base redemonstrated. The above report was generated using voice recognition software. It may contain grammatical, syntax o r spelling errors. Electronically signed by: Jose Luis Jones M.D. 08/11/2019 9:59 AM
--- NOTE | 2019-08-11 10:18 | Hospitalist Progress Note ---
Date of Service August 11, 2019 Assessment & Plan (1) Hypercalcemia: Mr. Shay Hodges is a 74 y/o male with past medical hx of metastatic squamous cell lung ca, COPD, HTN, charcot-tish tooth, who was admitted to [facility] for Hypercalcemia and aspiration pneumonia. - Oncology following, appreciate recommendations - Mild improvement of Ca, Pamidronate 90 mg IV--effect will take a couple days, continue to follow Ca - Avoid Lasix at this time in the setting of soft pressures--Continue NS 100 cc/hr, hold enalapril and cardizem - Introduced goals of care discussion with the patient, please page if family comes by this afternoon for further discussion of the possibility of palliative consult and hospice care (2) Pneumonia: - Tylenol for fever - Continue with Levaquin - Supplemental O2 humidified to value of 92% - Continue Aspiration precautions (3) Hypertension: - Soft pressures - Hold Enalapril and Cardizem (4) Therapeutic opioid-induced constipation (OIC): - continue with home docusate - Miralax PRN - c/w home Movantik (5) Supplemental oxygen dependent: Supplemental O2 to maintain 92% (6) Stage IV squamous cell carcinoma of lung: - No current treatment - Followed with Dr. Wu in past - Cachexic from cancer with poor appetite, Dietary consulted - Consider palliative consult on Monday (7) COPD (chronic obstructive pulmonary disease): - Continue with home inhalers - Duonebs PRN (8) Weakness: Multifactorial from poor PO intake and Hypercalcemia (9) Oociblw-Spykv-Jbmmm disease-like deformity of foot: Right foot deformity; with noted chronic ulcerations that are non- infectious (10) History of alcoholism: in remission; no need for AWSS; noted in history (11) DVT prophylaxis: Lovenox 40mg SQ (12) Hypomagnesemia: - Replete Supervising Physician Co-Signing Physician Notes I saw the patient there is a physician and confirmed ramírez portions of the history and physical exam. Agree with the impression and plan as noted in the resident documentation. Also discussed the case with outbound sales consultant. Impression Hypercalcemia, secondary to malignancy, improving Pneumonia Lung cancer, Squamous cell Cachexia of malignancy Hypomagnesemia HTN Plan Continue Levaquin Lasix today -mild vascular congestion on chest x-ray, he is up about 5 L although I suspect he presented to the hospital hypovolemic. Pamidronate IV yesterday; daily BMP as effect usually is not seen for 2-3 days Hold Cardizem given low BPs Palliative consultation Oncology consultation PT/OT Subjective Patient states weakness is at baseline, appetite is still poor, but ate some breakfast this morning. Reports mild fever overnight. Review of Systems Review of Systems: negative except for mentioned above Physical Exam Constitutional: + ill appearing, + thin and + cachectic Eyes: PERRL, conjunctivae normal, anicteric sclerae ENMT: external ear and nose normal, oropharynx normal Neck: trachea midline, no thyromegaly Respiratory: normal respiratory effort, lungs clear to auscultation Cardiovascular: RRR, no murmur, no edema Gastrointestinal (Abdomen): normal bowel sounds, soft, nontender, no hepatosplenomegaly Musculoskeletal: no cyanosis or clubbing, extremities motor strength 5/5 Skin: no rashes, warm and dry Results & Data Vital Signs (Past 12 Hours) Vital Signs Temp Pulse Resp BP BP Pulse Ox 08/11/19 08:02 36.9 C 56 L 20 99/50 L 97 08/11/19 04:31 36.9 C 72 20 99/63 L 90 08/10/19 23:49 37.1 C 08/10/19 23:22 37.8 C H 76 20 85/47 L 93 Resident Activity Tracking Resident Involvement: Resident Care Provided Care Provided: Adult Hospital Medicine (1) Stage IV squamous cell carcinoma of lung Laterality: right Qualified Code(s): C34.91 - Malignant neoplasm of unspecified part of right bronchus or lung (2) COPD (chronic obstructive pulmonary disease) COPD type: emphysema Emphysema type: unspecified Qualified Code(s): J43.9 - Emphysema, unspecified (3) Hypertension Hypertension type: essential hypertension Qualified Code(s): I10 - Essential (primary) hypertension (4) Pneumonia Laterality: right Lung location: middle lobe of lung Pneumonia type: due to unspecified organism Qualified Code(s): J18.9 - Pneumonia, unspecified organism
[2019-08-11] MEDS: DOCUSATE SODIUM 100 MG CAP PO SCH ×2 (10:41→21:12)
[2019-08-11] MEDS: MAGNESIUM SULFATE / D5W 1 GM/100 ML BAG IV SCH ×2 (11:01→12:04)
--- NOTE | 2019-08-11 12:40 | Progress Note ---
DATE: 08/11/2019 DIAGNOSES: 1. Hypercalcemia, attributable to malignancy. 2. Aspiration pneumonia. 3. Therapeutic opioid-induced constipation. 4. Hypoxia. 5. Metastatic squamous cell carcinoma of the lung. 6. Generalized clinical decline. SUBJECTIVE: The patient is a very pleasant, but unfortunate 74-year-old who was admitted with hypercalcemia attributable to malignancy. I spoke to the hospitalist service today, had made arrangements to have Palliative Care see him Monday morning. The patient has not received chemotherapy since mid March. Clearly, he is in a clinical decline, which is not surprising. Bisphosphonate therapy was administered and his calcium level is heading downward. The patient continues to pretty with chronic abdominal pain. Hopefully, this will be addressed by the Palliative Service moving forward. Nursing reports no overnight difficulties otherwise. OBJECTIVE: GENERAL: A very pleasant, bit more alert 74-year-old gentleman, in no acute distress. VITAL SIGNS: Temperature 36.9, pulse 56, respiratory rate 20, blood pressure 99/50. SKIN: Without rash or lesion. HEENT: Oral mucosa is somewhat dry. No buccal lesions or ulcerations. HEART: Regular rate and rhythm. LUNGS: Distant breath sounds. No audible rhonchi or wheezing. ABDOMEN: Soft, diffusely tender. No rigidity or guarding, however. EXTREMITIES: No clubbing, cyanosis or edema. NEUROLOGIC: The patient remains somewhat lethargic, but is a bit brighter today. LABORATORY DATA: WBC count 7160, hemoglobin 8.5, platelet count 124,000. Calcium 11. IMPRESSION: 1. General clinical decline. 2. Hypercalcemia, attributable to malignancy. 3. Aspiration pneumonia. 4. Constipation. 5. Metastatic squamous cell carcinoma of the lung. PLAN: The patient is a very pleasant 74-year-old gentleman suffering from end-stage metastatic lung cancer. He has not received any significant therapy since March. Quite frankly, I was surprised to see him in the hospital as I thought he may have succumbed. Nonetheless, I think at this juncture, his decline certainly fits criteria for palliation and outpatient hospice moving forward. Hospitalist service has arranged for a consultation for tomorrow morning. I have not planned to have the patient return to the office, but certainly would have no objection as I customarily offer pain and nutritional assessment visits to hosp[facility] patients [facility]. I will officially sign off. Dr. Wood will take over service tomorrow.
[2019-08-11] MEDS ORDERED: FUROSEMIDE 20 MG TAB PO STA (15:43)
[2019-08-11] MEDS: LEVOFLOXACIN/D5W 750 MG/150 ML BAG IV SCH (16:19)
[2019-08-11] MEDS: PANTOprazole 40 MG TAB PO SCH (16:20)
[2019-08-11] MEDS: ENOXAPARIN INJ 40 MG/0.4 ML SYR SQ SCH (18:26)
[2019-08-11] MEDS: OXYCODONE HCL IR 5 MG TAB (IMMEDIATE RELEASE) PO PRN (21:04)
[2019-08-12] MEDS: OXYCODONE HCL IR 5 MG TAB (IMMEDIATE RELEASE) PO PRN ×3 (04:01→19:08)
[2019-08-12 05:41] LABS: Hemoglobin 8.6 g/dL (14.0-18.0); Mean Corpuscular Hgb Conc 31.9 g/dL (32-36); Mean Corpuscular Volume 90.9 fL (80-100); Mean Platelet Volume 9.3 fL (7.4-10.4); Platelet Count 127 K/uL (130-400); RDW Coefficient of Variation 18.3 % (11.5-14.5); RDW Standard Deviation 61.9 fL (36.4-46.3); Red Blood Count 2.97 M/uL (4.7-6.1); White Blood Count 7.38 K/uL (4.8-10.8)
[2019-08-12 06:10] LABS: BUN Creatinine Ratio 21.2 (10-20); Calcium 9.5 mg/dl (8.5-10.1); Creatinine Clr Calc Pharmacy 93.3 ml/min; Est GFR (African American) 110.9; Est GFR (Non-African American) 95.7; Magnesium 1.5 mg/dl (1.8-2.4); Potassium 4.2 mmol/L (3.5-5.1)
[2019-08-12 06:12] LABS: Phosphorus 2.1 mg/dl (2.5-4.9)
[2019-08-12] MEDS ORDERED: POTASSIUM PHOS 3 MMOL/1 ML INFUSION IV STA (06:57)
[2019-08-12] MEDS: SODIUM CHLORIDE 0.9% 1000ML 1,000 ML IV SCH ×2 (07:10→18:18)
--- NOTE | 2019-08-12 07:13 | Hospitalist Progress Note ---
Date of Service August 12, 2019 Assessment & Plan (1) Hypercalcemia: Mr. Shay Hodges is a 74 y/o male with past medical hx of metastatic squamous cell lung ca, COPD, HTN, charcot-tish tooth, who was admitted to [facility] for Hypercalcemia and aspiration pneumonia. - Oncology following - Significant improvement of Ca, Treated over weekend with Pamidronate 90 mg IV--effect will take a couple days, but values have progressed from 13 --> 12.6 --> 11 --> 9.5, not factoring corrected calcium, but significant improvement - Avoid Lasix at this time in the setting of soft pressures--Continue NS 100 cc/hr, hold enalapril and cardizem - Introduced goals of care discussion with the patient, plan for [facility] hospice care per review of note of manager case. (2) Pneumonia: - Tylenol for fever - Continue with Levaquin - Supplemental O2 humidified to value of 92% - Continue Aspiration precautions (3) Therapeutic opioid-induced constipation (OIC): - continue with home docusate - Miralax now scheduled q24h - found out per pharmacy we do not carry home Movantik; will order Methlynaltrexone Cal[place] 12mg SQ q2D scheduled, perhaps will have better volume of distribution since is given SQ than home PO in a patient with chronic constipation and questionable poor GI absoprtion (4) Supplemental oxygen dependent: Supplemental O2 to maintain 92% (5) Need for comfort care: - Palliative Care consulted to see patient, appreciate recs - Looks like plan is for [facility] hospice care - Patient is a DNR/DNI (6) Stage IV squamous cell carcinoma of lung: - No current treatment - Followed with Dr. Wu in past - Cachexic from cancer with poor appetite, Dietary consulted - Palliative Care as above (7) COPD (chronic obstructive pulmonary disease): - Continue with home inhalers - Duonebs PRN (8) Weakness: Multifactorial from poor PO intake and Hypercalcemia (9) Hmohcww-Eipze-Adzal disease-like deformity of foot: Right foot deformity; with noted chronic ulcerations that are non- infectious (10) History of alcoholism: in remission; no need for AWSS; noted in history (11) DVT prophylaxis: Lovenox 40mg SQ (12) Hypomagnesemia: - Replete Supervising Physician Co-Signing Physician Notes I personally examined the patient and verified all ramírez points of history and exam, discussed case, and agree with decision making with Dr downing. Having some pain mostly whenever he is not able to move around much. Relates it is back pain and belly pain. He is quite reticent to increase his pain medications due to his rather profound opioid-induced constipation, he does note that he was approved for medical marijuana, but is not able to get to the dispensary to pick it up, and wonders if that we will put a end to his being able to try that type of a therapeutic modality. Later I called the dispensary, and if his is able to get on the Department of Health website and submit for a caregiver card, she will be able to obtain for him. Vitals noted, in general he is awake and alert pleasant appears quite fatigued. HEENT normocephalic atraumatic mucous membranes are moist. Breathing unlabored no accessory muscle use good effort. Skin shows no rashes no pallor or icterus. Impression Hypercalcemia, secondary to malignancy, improving Pneumonia Lung cancer, Squamous cell Cachexia of malignancy Opioid-induced constipation HTN Plan Continue Levaquin Trial of Relistor and MiraLAX Goal for [facility] with hospice Continue current care otherwise PT/OT lovenox DVT proph Subjective Mr. Hodges notes continued chronic abdominal pain without BM overnight. He still has a cough. No chest pain, nausea, vomiting. No acute events overnight. Plan to meet with Palliative care today. He notes that he has gone through process to get Medical Marijuana Card but since he cannot physically go into store that is is currently in process to get surrogate card to obtain medication for him. Physical Exam Constitutional: + cachectic; no acute distress Eyes: PERRL and EOM intact bilaterally ENMT: external ear and nose normal, oropharynx normal Neck: normal visual inspection and trachea midline Respiratory: no respiratory distress diffuse expiratory coarse breath sounds; cough present during exam Cardiovascular: Rate/Rhythm: regular rate and regular rhythm Heart Sounds: + murmur (systolic) Extremities: no calf tenderness and no edema distant heart sounds Gastrointestinal (Abdomen): Inspection/Auscultation: normal bowel sounds Percussion/Palpation: no guarding and abdomen not rigid Musculoskeletal: Head/Neck/Chest: normocephalic and head atraumatic Neurologic: moves all extremities and awake Psychiatric: A+Ox3, euthymic affect Results & Data Vital Signs (Past 12 Hours) Vital Signs Temp Pulse Resp BP BP Pulse Ox 08/12/19 03:35 36.7 C 79 18 101/62 94 08/11/19 23:00 36.7 C 83 20 100/64 94 08/11/19 19:46 37.0 C 90 20 90/56 L 91 Laboratory Results Laboratory Results - last 24 hr 08/12/19 08/12/19 05:27 05:27 WBC 7.38 RBC 2.97 L Hgb 8.6 L Hct 27.0 L MCV 90.9 MCH 29.0 MCHC 31.9 L RDW Std Deviation 61.9 H RDW Coeff of Tuan 18.3 H Plt Count 127 L MPV 9.3 Sodium 139 Potassium 4.2 Chloride 108 H Carbon Dioxide 28 Anion Gap 3.0 BUN 13 Creatinine 0.63 Est Cr Clr Drug Dosing 93.3 Est GFR ( Amer) 110.9 Est GFR (Non-Af Amer) 95.7 BUN/Creatinine Ratio 21.2 H Glucose 98 Calcium 9.5 Phosphorus 2.1 L Magnesium 1.5 L Medications Administered Acetaminophen (Tylenol) 500 mg PO Q6H PRN PRN Reason: Pain Stop: 09/08/19 22:19 Last Admin: 08/12/19 08:22 Dose: 500 mg Documented by: [id number] Admin: 08/10/19 23:02 Dose: 500 mg Documented by: [id number] Hydrox/Mg Hydrox/Simethicone (Maalox) 30 ml PO Q6H PRN PRN Reason: Dyspepsia Stop: 09/08/19 17:49 Last Admin: 08/12/19 08:45 Dose: 30 ml Documented by: [id number] Albuterol (Combivent Respimat) 1 puffs INH QID PRISCA Stop: 09/08/19 20:59 Last Admin: 08/12/19 12:14 Dose: 1 puffs Documented by: [id number] Admin: 08/12/19 08:19 Dose: 1 puffs Documented by: [id number] Admin: 08/11/19 21:08 Dose: 1 puffs Documented by: [id number] Admin: 08/11/19 16:19 Dose: 1 puffs Documented by: [id number] Admin: 08/11/19 13:22 Dose: 1 puffs Documented by: [id number] Admin: 08/11/19 08:40 Dose: 1 puffs Documented by: [id number] Admin: 08/10/19 20:44 Dose: 1 puffs Documented by: [id number] Admin: 08/10/19 17:10 Dose: 1 puffs Documented by: [id number] Admin: 08/10/19 13:32 Dose: 1 puffs Documented by: [id number] Admin: 08/10/19 09:05 Dose: 1 puffs Documented by: [id number] Admin: 08/09/19 21:43 Dose: 1 puffs Documented by: [id number] Beclomethasone Dipropionate (Qvar 80mcg) 2 puffs INH BID PRISCA Stop: 09/08/19 20:59 Last Admin: 08/12/19 08:20 Dose: 2 puffs Documented by: [id number] Admin: 08/11/19 21:08 Dose: 2 puffs Documented by: [id number] Admin: 08/11/19 08:39 Dose: 2 puffs Documented by: [id number] Admin: 08/10/19 20:44 Dose: 2 puffs Documented by: [id number] Admin: 08/10/19 09:06 Dose: 2 puffs Documented by: [id number] Admin: 08/09/19 21:44 Dose: 2 puffs Documented by: [id number] Diltiazem HCl (Cardizem Cd) 120 mg PO QAM [facility] Stop: 09/09/19 08:59 Last Admin: 08/10/19 09:05 Dose: 120 mg Documented by: [id number] Docusate Sodium (Colace) 100 mg PO BID PRISCA Stop: 09/08/19 20:59 Last Admin: 08/12/19 08:22 Dose: 100 mg Documented by: [id number] Admin: 08/11/19 21:12 Dose: 100 mg Documented by: [id number] Admin: 08/11/19 10:41 Dose: 100 mg Documented by: [id number] Admin: 08/10/19 20:47 Dose: 100 mg Documented by: [id number] Admin: 08/10/19 09:10 Dose: 100 mg Documented by: [id number] Admin: 08/09/19 21:43 Dose: 100 mg Documented by: [id number] Enalapril Maleate (Vasotec) 40 mg PO DAILY [facility] Stop: 09/08/19 17:49 Last Admin: 08/10/19 09:29 Dose: Not Given Documented by: [id number] Admin: 08/09/19 19:36 Dose: 40 mg Documented by: [id number] Enoxaparin Sodium (Lovenox) 40 mg SQ Q24H PRIS[facility] Stop: 09/08/19 17:59 Last Admin: 08/11/19 18:26 Dose: 40 mg Documented by: [id number] Admin: 08/10/19 17:09 Dose: 40 mg Documented by: [id number] Admin: 08/09/19 19:20 Dose: 40 mg Documented by: [id number] Fentanyl (Duragesic) 12 mcg TD Q72H PRIS[facility] Stop: 08/24/19 08:59 Last Admin: 08/10/19 09:01 Dose: 12 mcg Documented by: [id number] Guaifenesin (Mucinex) 1,200 mg PO BID PRISCA Stop: 09/08/19 20:59 Last Admin: 08/12/19 08:19 Dose: 1,200 mg Documented by: [id number] Admin: 08/11/19 21:07 Dose: 1,200 mg Documented by: [id number] Admin: 08/11/19 08:40 Dose: 1,200 mg Documented by: [id number] Admin: 08/10/19 20:44 Dose: 1,200 mg Documented by: [id number] Admin: 08/10/19 09:06 Dose: 1,200 mg Documented by: [id number] Admin: 08/09/19 23:28 Dose: Not Given Documented by: [id number] Sodium Chloride (Nss 1000ml) 1,000 mls @ 100 mls/hr IV .Q10H PRISCA Stop: 09/08/19 20:07 Last Admin: 08/12/19 07:10 Dose: 100 mls/hr Documented by: [id number] Infusion: 08/12/19 07:05 Dose: 100 mls/hr Documented by: [id number] Admin: 08/11/19 21:05 Dose: 100 mls/hr Documented by: [id number] Infusion: 08/11/19 20:36 Dose: 100 mls/hr Documented by: [id number] Infusion: 08/11/19 18:07 Dose: 100 mls/hr Documented by: [id number] Infusion: 08/11/19 16:34 Dose: 0 mls/hr Documented by: [id number] Admin: 08/11/19 09:02 Dose: 100 mls/hr Documented by: [id number] Infusion: 08/11/19 09:01 Dose: 0 mls/hr Documented by: [id number] Infusion: 08/10/19 23:49 Dose: 100 mls/hr Documented by: [id number] Infusion: 08/10/19 23:11 Dose: 0 mls/hr Documented by: [id number] Admin: 08/10/19 22:23 Dose: 100 mls/hr Documented by: [id number] Infusion: 08/10/19 20:28 Dose: 100 mls/hr Documented by: [id number] Infusion: 08/10/19 17:08 Dose: 100 mls/hr Documented by: [id number] Infusion: 08/10/19 15:02 Dose: 0 mls/hr Documented by: [id number] Admin: 08/10/19 08:21 Dose: 100 mls/hr Documented by: [id number] Infusion: 08/10/19 08:14 Dose: 100 mls/hr Documented by: [id number] Admin: 08/09/19 22:14 Dose: 100 mls/hr Documented by: [id number] Levofloxacin (Levaquin) 750 mg PO DAILY@1100 [facility] Stop: 08/16/19 23:59 Last Admin: 08/12/19 12:13 Dose: 750 mg Documented by: [id number] Magnesium Oxide (Mag-Ox) 400 mg PO BID [facility] Stop: 09/10/19 08:59 Last Admin: 08/11/19 08:46 Dose: 400 mg Documented by: [id number] Miscellaneous (Fentanyl Patch Check Placement) 1 ea N/A QS [facility] Stop: 09/09/19 00:00 Last Admin: 08/12/19 08:52 Dose: 1 ea Documented by: [id number] Admin: 08/11/19 23:22 Dose: 1 ea Documented by: [id number] Admin: 08/11/19 16:19 Dose: 1 ea Documented by: [id number] Admin: 08/11/19 08:43 Dose: 1 ea Documented by: [id number] Admin: 08/10/19 23:02 Dose: 1 ea Documented by: [id number] Admin: 08/10/19 15:02 Dose: 1 ea Documented by: [id number] Admin: 08/10/19 08:21 Dose: 1 ea Documented by: [id number] Admin: 08/09/19 23:29 Dose: 1 ea Documented by: [id number] Miscellaneous (Fentanyl Patch Remove & Waste) 1 ea N/A Q3D [facility] Stop: 09/09/19 08:58 Last Admin: 08/10/19 09:02 Dose: 1 ea Documented by: [id number] Cosigned by: [id number] Miscellaneous (Order Awaiting Action) 1 ea N/A QS [facility] Stop: 09/09/19 00:00 Last Admin: 08/12/19 08:53 Dose: Not Given Documented by: [id number] Admin: 08/11/19 23:22 Dose: Not Given Documented by: [id number] Admin: 08/11/19 16:19 Dose: Not Given Documented by: [id number] Admin: 08/11/19 08:42 Dose: Not Given Documented by: [id number] Admin: 08/10/19 23:49 Dose: Not Given Documented by: [id number] Admin: 08/10/19 15:03 Dose: Not Given Documented by: [id number] Admin: 08/10/19 07:33 Dose: Not Given Documented by: [id number] Admin: 08/10/19 00:57 Dose: Not Given Documented by: [id number] Alonsoaneous (Order Awaiting Action) 1 ea N/A QS [facility] Stop: 09/09/19 00:00 Last Admin: 08/12/19 08:53 Dose: Not Given Documented by: [id number] Admin: 08/11/19 23:22 Dose: Not Given Documented by: [id number] Admin: 08/11/19 16:19 Dose: Not Given Documented by: [id number] Admin: 08/11/19 08:41 Dose: Not Given Documented by: [id number] Admin: 08/10/19 23:49 Dose: Not Given Documented by: [id number] Admin: 08/10/19 15:03 Dose: Not Given Documented by: [id number] Admin: 08/10/19 07:34 Dose: Not Given Documented by: [id number] Admin: 08/10/19 00:57 Dose: Not Given Documented by: [id number] Oxycodone HCl (Roxicodone Immediate Rel) 10 mg PO Q6H PRN PRN Reason: pain Stop: 08/23/19 17:49 Last Admin: 08/12/19 09:54 Dose: 10 mg Documented by: [id number] Admin: 08/12/19 04:01 Dose: 10 mg Documented by: [id number] Admin: 08/11/19 21:04 Dose: 10 mg Documented by: [id number] Admin: 08/10/19 20:56 Dose: 10 mg Documented by: [id number] Admin: 08/10/19 09:14 Dose: 10 mg Documented by: [id number] Admin: 08/09/19 21:47 Dose: 10 mg Documented by: [id number] Pantoprazole Sodium (Protonix) 40 mg PO DAILY@1630 [facility] Stop: 09/09/19 16:29 Last Admin: 08/11/19 16:20 Dose: 40 mg Documented by: [id number] Admin: 08/10/19 17:10 Dose: 40 mg Documented by: [id number] Polyethylene Glycol (Miralax Powder Packet) 17 gm PO DAILY [facility] Stop: 09/11/19 15:14 Last Admin: 08/12/19 15:41 Dose: Not Given Documented by: [id number] Potassium Chloride (Klor-Con Pwd) 20 meq PO QAM [facility] Stop: 09/09/19 08:59 Last Admin: 08/12/19 08:19 Dose: 20 meq Documented by: [id number] Admin: 08/11/19 08:41 Dose: 20 meq Documented by: [id number] Admin: 08/10/19 09:04 Dose: 20 meq Documented by: [id number] Sodium Chloride ([place] Saline Nasal) 1 appln NA BID [facility] Stop: 09/09/19 08:59 Last Admin: 08/12/19 08:20 Dose: 1 appln Documented by: [id number] Admin: 08/11/19 21:09 Dose: 1 appln Documented by: [id number] Admin: 08/11/19 08:43 Dose: 1 appln Documented by: [id number] Admin: 08/10/19 20:47 Dose: 1 appln Documented by: [id number] Admin: 08/10/19 09:06 Dose: 1 appln Documented by: [id number] Resident Activity Tracking Resident Involvement: Resident Care Provided Care Provided: Adult Hospital Medicine (1) Stage IV squamous cell carcinoma of lung Laterality: right Qualified Code(s): C34.91 - Malignant neoplasm of unspecified part of right bronchus or lung (2) COPD (chronic obstructive pulmonary disease) COPD type: emphysema Emphysema type: unspecified Qualified Code(s): J43.9 - Emphysema, unspecified (3) Pneumonia Laterality: right Lung location: middle lobe of lung Pneumonia type: due to unspecified organism Qualified Code(s): J18.9 - Pneumonia, unspecified organism
[2019-08-12] MEDS ORDERED: POTASSIUM PHOSPHATE 30 MMOL in SODIUM CHLORIDE 0.9% 500 ML IV ONE (07:30)
[2019-08-12] MEDS: MAGNESIUM SULFATE / D5W 1 GM/100 ML BAG IV SCH ×2 (07:34→08:45)
[2019-08-12] MEDS: POTASSIUM CHLORIDE PWD 20 MEQ PACK PO SCH (08:19)
[2019-08-12] MEDS: guaiFENesin 600 MG TABCR PO SCH ×3 (08:19→21:20)
[2019-08-12] MEDS: IPRATROPIUM BROMIDE/ALBUTEROL respimat INH INH SCH ×4 (08:19→21:12)
[2019-08-12] MEDS: BECLOMETHASONE DIP HFA 80 MCG 8.7G INH INH SCH ×2 (08:20→21:11)
[2019-08-12] MEDS: SALINE NASAL GEL (AYR) 14.1 GM TUBE SCH ×2 (08:20→21:11)
[2019-08-12] MEDS: ACETAMINOPHEN 500 MG TAB PO PRN ×2 (08:22→22:56)
[2019-08-12] MEDS: DOCUSATE SODIUM 100 MG CAP PO SCH ×2 (08:22→21:18)
[2019-08-12] MEDS: CHECK FENTANYL PATCH PLACEMENT SCH ×2 (08:52→16:41)
--- NOTE | 2019-08-12 11:17 | Palliative Care Consultation ---
Date of Consultation August 12, 2019 Assessment & Plan (1) Goals of care, counseling/discussion: This is a 74 year old male who presented to the [facility] with weakness, signs of aspiration and increased falls as reported by his . 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 The patient sees Dr. Wu and has received a combination of chemotherapy and radiation for treatment. Dr. Wu did see the patient during this admission who stated that he has not received any chemotherapy agents since March 2019 and supported hospice should the patient and family decide to transition towards that route. Ultimately, this admission he was found to have PNA, which is being treated with antibiotics; however, his overall clinical picture remains guarded, at best. Palliative Care was consulted to discuss goals of care. -I met the patient and his , Leticia, who was at his bedside. The patient had his eyes closed for the majority of our visit, but did open them slightly to his name. His head was tilted backwards and mouth open for most of the time. -Leticia and I discussed his overall functional decline over the past few months. She stated how much weaker he has become and commented on two recent falls for which she had a hard time helping him up. She became tearful and stated how hard it is to see him decline, but wants to do right by him. -She is struggling with her wish to take him home but doesn't think that she can physically provide the care that he needs anymore. -We talked at length about hospice care in the home with supplemental caregivers and at a SNF. Based on his current symptom needs with opioid-induced constipation, shortness of breath and pain, we both agree that a SNF with Hospice would be in this patients best interest. -We discussed a skilled portion of his stay upon discharge to SNF and she declined further PT/OT involvement. She stated " no need to put him through that, if we are headed down this route". -Regarding his symptoms, opioid induced constipation is currently being treated with Colace, scheduled Miralax and a new order of Relistor which may be helpful as he has questionable GI absorption. Could also consider Dulcolax suppository if no response. -We discussed his PO intake and liklihood of this worsening as disease progresses. Patient is severely cachectic. Continue offering food for comfort/krystal. -From a pain management standpoint, he has Tylenol 500 mg Q6 PRN, Oxycodone IR 10mg Q6 PRN which he has utilized 4 doses over the past 24 hours, and a Fentanyl patch of 12 mcg. So far, this regimen seems appropriate and does not require adjustments at this time. -We discussed comfort measures and she would like to begin this transition while in the hospital. She does not want any additional blood draws to be performed. She is OK with vital signs continuing during the hospitalization. Additionally, she would be ok with some medications staying on board, but is ok with non essential medications being discontinued. Will review with the Hospitalist team. Confirmed she is OK with him continuing to receive antibiotics and she agreed to this. -I completed a POLST form at the bedside with Leticia indicating DNR/DNI, RESTAURANT ATTENDANT, trial abx, no artificial nutrition or hydration. -Will reassess symptom needs tomorrow, along with medication reconciliation. -PPS: 20% (2) Stage IV squamous cell carcinoma of lung: Laterality: right Qualified Code(s): C34.91 - Malignant neoplasm of unspecified part of right bronchus or lung (3) COPD (chronic obstructive pulmonary disease): COPD type: emphysema Emphysema type: unspecified Qualified Code(s): J43.9 - Emphysema, unspecified (4) AMS (altered mental status): Altered mental status type: unspecified Qualified Code(s): R41.82 - Altered mental status, unspecified (5) Weakness: (6) Chronic diastolic CHF (congestive heart failure): History of Present Illness Reason for Consultation: Goals of care Requesting Physician: Dr. Beverly Attending Physician: Balwinder Christiansen DO History of Present Illness This is a 74 year old male who presented to the [facility] with weakness, signs of aspiration and increased falls as reported by his . Additional PMH includes: metastatic small cell lung cancer, COPD, HTN, charot tish tooth deformity. The patient sees Dr. Wu and has received a combination of chemotherapy and radiation for treatment. Dr. Wu did see the patient during this admission who stated that he has not received any chemotherapy agents since March 2019 and supported hospice should the patient and family decide to transition towards that route. Ultimately, this admission he was found to have PNA, which is being treated with antibiotics; however, his overall clinical picture remains guarded, at best. Palliative Care was consulted to discuss goals of care. Please see A/P for further details. Thank you kindly for involving the palliative care team with this patient. We will continue to provide support and assist with decision making and symptom management. Allergies Allergy/AdvReac Type Severity Reaction Status Date / Time amlodipine AdvReac Intermediate edema Verified 08/09/19 15:07 hydrochlorothiazide AdvReac Intermediate hyponatremi Verified 08/09/19 15:07 a doxycycline AdvReac Mild Nausea and Verified 08/09/19 15:07 abdominal pain Home Medications Home Medications Medication Instructions Recorded Confirmed Type cholecalciferol (vitamin D3) 2,000 unit PO HS 08/14/18 08/09/19 History [Vitamin D3] guaifenesin [Mucinex] 1,200 mg PO BID 08/14/18 08/09/19 History diltiazem HCl 120 mg 120 mg PO QAM #90 cap 02/04/19 08/09/19 Rx capsule,extended release 24 hr omeprazole 40 mg capsule,delayed 40 mg PO QPM #90 cap 02/04/19 08/09/19 Rx release Combivent Respimat 1 puff INHALATION QID #0 02/13/19 08/09/19 History acetaminophen 500 mg capsule 500 mg PO Q6H PRN 04/30/19 08/09/19 History benzonatate 200 mg PO Q8 PRN 06/06/19 08/09/19 History docusate sodium 100 mg PO BID 06/06/19 08/09/19 History methylnaltrexone 450 mg PO DAILYBB 06/06/19 08/09/19 History nicotine [Nicoderm CQ] 14 mg TOPICAL DAILY 06/06/19 08/09/19 History sodium chloride-aloe vera [[place] 1 spray INTRANASAL BID 06/06/19 08/09/19 History Saline Gel] beclomethasone dipropionate 80 2 puffs INH BID #10.6 gm 06/12/19 08/09/19 Rx mcg/actuation HFA breath activated aerosol naloxegol 25 mg tablet 25 mg PO ONCE #30 tab 06/14/19 08/09/19 Rx fentanyl 12 mcg/hr transdermal 1 patch TD Q72H #2 box 07/11/19 08/09/19 Rx patch enalapril maleate 20 mg tablet 40 mg PO DAILY #90 tab 07/19/19 08/09/19 Rx oxycodone 10 mg tablet 10 mg PO Q6H PRN #90 tab 08/05/19 08/09/19 Rx atorvastatin 40 mg PO HS 08/09/19 08/09/19 History potassium chloride [Klor-Con] 20 meq PO QAM 08/09/19 08/09/19 History Patient History Medical History (Updated 08/12/19 @ 11:18 by VERNELL Phelan) Aortic stenosis MILD TO MODERATE AORTIC STENOSIS BPH (benign prostatic hyperplasia) Ijsogwb-Xbbnt-Weycc disease Chronic back pain Chronic diastolic CHF (congestive heart failure) COPD (chronic obstructive pulmonary disease) (Chronic) GERD (gastroesophageal reflux disease) Goals of care, counseling/discussion Gout Hearing deficit History of alcoholism PER RECORDS-"STOPPED A LONG TIME AGO" Hyperlipidemia Hypertension Hypertension Irregular heartbeat Mass of right lung (Acute) Obesity On home oxygen therapy 2L PRN AND HS Osteoarthritis Peripheral arterial disease Squamous cell carcinoma lung right lung--radiation Tobacco use disorder Varicose veins of left lower extremity Surgical History History of colonoscopy History of left-sided carotid endarterectomy @ [facility] by Dr. Guzman History of right knee surgery History of tooth extraction all teeth removed S/P foot surgery x2--1 on each foot S/P thoracentesis NO FURTHER DETAILS Family History Father Family history of diabetes mellitus Myocardial infarction Other No family history of adverse response to anesthesia Social History Preferred Language: Spanish Communication Ability: Effective Seed Sorter Required: No Beliefs That Will Affect Care: None marital status: Current Living Situation: Spouse Current Living Situation Comment: Lives with and oldest son Other Information That Helps Us Care for You: No Feels Safe at Home: Yes Safety Concerns: Feels Safe At This Time Smoking Status: Former smoker Tobacco Type: cigarettes ; Cigarettes Per Day: 30+ ; Second Hand Exposure: No ; Hx Alcohol Use: No Hx Substance Use: No Review of Systems Review of Systems: Unobtainable due to reduced consciousness Physical Exam Constitutional: + ill appearing, + cachectic and + frail appearing Respiratory: normal respiratory effort, lungs clear to auscultation Cardiovascular: Heart Sounds: normal S1, normal S2 and + murmur Extremities: normal capillary refill; no edema Gastrointestinal (Abdomen): normal bowel sounds, soft, nontender, no hepatosplenomegaly Percussion/Palpation: + abdomen tender and + guarding Psychiatric: Insight: + limited insight Judgement: + limited judgement Results & Data Vital Signs (Past 12 Hours) Vital Signs Temp Pulse Resp BP Pulse Ox 08/12/19 07:17 36.4 C L 69 18 121/68 99 08/12/19 03:35 36.7 C 79 18 101/62 94 PG Care Time/CCT Total # of Minutes Spent Total Time Spent with Patient: Total time spent is greater than 50% in coordination of care (as documented) at patient's floor/unit and/or counseling patient: 100 Time Spent Midlevel Total time spent 100 minutes with > 50% of that time spent assessing the patient, discussing goals of care and symptom management needs.
[2019-08-12] MEDS: levoFLOXacin 750 MG TAB PO SCH (12:13)
[2019-08-12] MEDS: POLYETHYLENE (MIRALAX) 17 GM PACK PO SCH (15:41)
[2019-08-12] MEDS: PANTOprazole 40 MG TAB PO SCH (16:41)
[2019-08-12] MEDS ORDERED: METHYLNALTREXONE BROMIDE 12 MG/0.6 ML VIAL SQ SCH (17:00)
[2019-08-12] MEDS: ENOXAPARIN INJ 40 MG/0.4 ML SYR SQ SCH (17:51)
--- NOTE | 2019-08-12 17:54 | Billing Data ---
Coding Level of Care Code 76131 Subseq Hosp Care Lvl 3
[2019-08-13] MEDS: CHECK FENTANYL PATCH PLACEMENT SCH ×3 (00:23→16:03)
[2019-08-13] MEDS: OXYCODONE HCL IR 5 MG TAB (IMMEDIATE RELEASE) PO PRN ×5 (03:15→22:45)
[2019-08-13] MEDS: SODIUM CHLORIDE 0.9% 1000ML 1,000 ML IV SCH ×2 (04:20→22:06)
[2019-08-13 07:33] LABS: Hematocrit (blood only) 28.3 % (42-52); Hemoglobin 9.1 g/dL (14.0-18.0); Mean Corpuscular Hemoglobin 28.8 pg (25-34); Mean Corpuscular Hgb Conc 32.2 g/dL (32-36); Mean Corpuscular Volume 89.6 fL (80-100); Mean Platelet Volume 9.6 fL (7.4-10.4); Platelet Count 136 K/uL (130-400); RDW Coefficient of Variation 18.4 % (11.5-14.5); RDW Standard Deviation 60.9 fL (36.4-46.3); Red Blood Count 3.16 M/uL (4.7-6.1); White Blood Count 6.28 K/uL (4.8-10.8)
[2019-08-13 07:57] LABS: Albumin Globulin Ratio 0.6 (0.9-2); Albumin Level 2.1 gm/dl (3.4-5.0); BUN Creatinine Ratio 20.4 (10-20); Bilirubin,Total 0.2 mg/dl (0.2-1); Creatinine Clr Calc Pharmacy 99.7 ml/min; Est GFR (African American) 112.4; Globulin 3.5 gm/dl (2.5-4.0); Magnesium 1.7 mg/dl (1.8-2.4); Phosphorus 2.2 mg/dl (2.5-4.9); Potassium 4.3 mmol/L (3.5-5.1); Total Protein 5.6 gm/dl (6.4-8.2)
[2019-08-13] MEDS: BECLOMETHASONE DIP HFA 80 MCG 8.7G INH INH SCH ×2 (08:35→20:23)
[2019-08-13] MEDS: guaiFENesin 600 MG TABCR PO SCH ×2 (08:36→20:24)
[2019-08-13] MEDS: POTASSIUM CHLORIDE PWD 20 MEQ PACK PO SCH (08:36)
[2019-08-13] MEDS: IPRATROPIUM BROMIDE/ALBUTEROL respimat INH INH SCH ×4 (08:36→20:22)
[2019-08-13] MEDS: SALINE NASAL GEL (AYR) 14.1 GM TUBE SCH ×2 (08:37→20:26)
[2019-08-13] MEDS: fentaNYL 12 MCG/HR TDSY TD SCH (08:41)
[2019-08-13] MEDS: DOCUSATE SODIUM 100 MG CAP PO SCH ×2 (08:41→20:27)
[2019-08-13] MEDS: POLYETHYLENE (MIRALAX) 17 GM PACK PO SCH ×2 (08:43→20:23)
[2019-08-13] MEDS ORDERED: POTASSIUM PHOS 3 MMOL/1 ML INFUSION IV STA (08:46)
[2019-08-13] MEDS ORDERED: MAGNESIUM SULFATE / D5W 1 GM/100 ML BAG IV STA (08:49)
[2019-08-13] MEDS ORDERED: POTASSIUM PHOSPHATE 30 MMOL in SODIUM CHLORIDE 0.9% 500 ML IV STA (08:56)
--- NOTE | 2019-08-13 10:32 | Hospitalist Progress Note ---
Date of Service August 13, 2019 Assessment & Plan (1) Hypercalcemia: Mr. Shay Hodges is a 74 y/o male with past medical hx of metastatic squamous cell lung ca, COPD, HTN, charcot-tish tooth, who was admitted to [facility] for Hypercalcemia and aspiration pneumonia. - appears significantly improved by appearance today, but states no better subjectively. - Oncology following - Significant improvement of Ca, Treated over weekend with Pamidronate 90 mg IV--effect will take a couple days, but values have progressed from 13 --> 12.6 --> 11 --> 9.5, not factoring corrected calcium, but significant improvement - Avoid Lasix at this time in the setting of soft pressures--Continue NS 100 cc/hr, hold enalapril and cardizem - Introduced goals of care discussion with the patient, plan for [facility] hospice care per review of note of case therapist. (2) Pneumonia: - Tylenol for fever - Continue with Levaquin - Supplemental O2 humidified to value of 92% - Continue Aspiration precautions (3) Therapeutic opioid-induced constipation (OIC): - continue with home docusate - Miralax now scheduled BID - found out per pharmacy we do not carry home Movantik; will order Methlynaltrexone [place] 12mg SQ q2D scheduled, perhaps will have better volume of distribution since is given SQ than home PO in a patient with chronic constipation and questionable poor GI absoprtion (4) Supplemental oxygen dependent: Supplemental O2 to maintain 92% (5) Need for comfort care: - Palliative Care consulted to see patient, appreciate recs - Looks like plan is for [facility] hospice care - Patient is a DNR/DNI (6) Stage IV squamous cell carcinoma of lung: - No current treatment - Followed with Dr. Wu in past - Cachexic from cancer with poor appetite, Dietary consulted - Palliative Care as above (7) COPD (chronic obstructive pulmonary disease): - Continue with home inhalers - Duonebs PRN (8) Weakness: Multifactorial from poor PO intake and Hypercalcemia (9) Eayxlwh-Jdkog-Fckxz disease-like deformity of foot: Right foot deformity; with noted chronic ulcerations that are non- infectious (10) History of alcoholism: in remission; no need for AWSS; noted in history (11) DVT prophylaxis: Lovenox 40mg SQ (12) Hypomagnesemia: - Repleted again Supervising Physician Co-Signing Physician Notes I personally examined the patient and verified all ramírez points of history and exam, discussed case, and agree with decision making with Dr downing. pain about the same, is in process of getting caregiver card for medical marijuana, which has been pt's preferred next step rather than overall escalation of pain meds - although does note he was taking more like q4hr for his prns before. no BM yet Vitals noted, in general he is awake and alert pleasant appears quite fatigued. HEENT normocephalic atraumatic mucous membranes are moist. Breathing unlabored no accessory muscle use good effort. Skin shows no rashes no pallor or icterus. Impression Hypercalcemia, secondary to malignancy, improving Pneumonia - presumed to be aspiration Lung cancer, Squamous cell chronic hypoxic respiratory failure Cachexia of malignancy (severe protein calorie malnutrition) Opioid-induced constipation HTN Plan Continue Levaquin Trial of Relistor and MiraLAX (escalate) Goal for SNF with hospice ([facility] had no beds) change oxycodone to q4hr prn; await to get caregiver card for trial of cannabis for pain relief Continue current care otherwise PT/OT lovenox DVT proph Subjective Mr. Hodges is sitting up in bed eating breakfast without complications. He notes no bowel movement. No nausea, vomiting. He notes no change in status. notes she is in process of getting surrogate medical marijuana card and has completed paperwork, currently awaiting to get card in mail. Physical Exam Constitutional: + cachectic; no acute distress Eyes: PERRL and EOM intact bilaterally ENMT: external ear and nose normal, oropharynx normal Neck: normal visual inspection and trachea midline Respiratory: no respiratory distress Cardiovascular: Rate/Rhythm: regular rate and regular rhythm Heart Sounds: + murmur (systolic) Extremities: no calf tenderness and no edema Gastrointestinal (Abdomen): Inspection/Auscultation: normal bowel sounds Percussion/Palpation: abdomen soft; no guarding and abdomen not rigid Musculoskeletal: Head/Neck/Chest: normocephalic and head atraumatic Neurologic: moves all extremities and awake Psychiatric: A+Ox3, euthymic affect Results & Data Vital Signs (Past 12 Hours) Vital Signs Temp Pulse Resp BP BP Pulse Ox 08/13/19 07:11 36.9 C 88 20 91/53 L 91 08/13/19 04:15 94 08/13/19 03:47 37.1 C 77 20 99/60 L 89 L 08/12/19 23:48 37.0 C 90 20 106/67 92 Resident Activity Tracking Resident Involvement: Resident Care Provided Care Provided: Adult Hospital Medicine (1) Stage IV squamous cell carcinoma of lung Laterality: right Qualified Code(s): C34.91 - Malignant neoplasm of unspecified part of right bronchus or lung (2) COPD (chronic obstructive pulmonary disease) COPD type: emphysema Emphysema type: unspecified Qualified Code(s): J43.9 - Emphysema, unspecified (3) Pneumonia Laterality: right Lung location: middle lobe of lung Pneumonia type: due to unspecified organism Qualified Code(s): J18.9 - Pneumonia, unspecified organism
--- NOTE | 2019-08-13 10:33 | Palliative Care Progress Note ---
Date of Service August 13, 2019 Assessment & Plan (1) Goals of care, counseling/discussion: -Today, the patient was more interactive and awake today. I spoke with him about my conversation with his yesterday and he stated that she talked to him about that plan last evening before she left the hospital and he was more awake. -He agreed that he would be willing to go to a SNF with Hospice support. He agrees that rehabilitation is not in his interests. -patient states that his abdominal pain continues and reiterated that he took opioids at home more frequently than here. Will increase Oxycodone 10mg po from Q6 hours to Q4 hours for increased frequency. Will continue to assess. Patient also has Tylenol 500 mg Q 6 PRN and Fentanyl patch 12 mcg. Suggest increasing Fentanyl patch as well to 25 mcg for more long acting control. Will defer to hospitalist team with suggestion. -In speaking with case management, there are no beds at [facility], and geographically, she would going to talk to the patients about placing referrals closer to their home in [place]. -Regarding his symptoms, opioid induced constipation is currently being treated with Colace, scheduled Miralax and a new order of Relistor which may be helpful as he has questionable GI absorption. Could also consider Dulcolax suppository if no response. -We discussed his PO intake and liklihood of this worsening as disease progresses. Patient is severely cachectic. Continue offering food for comfort/krystal. Confirmed this today as well. -We discussed comfort measures yesterday and she would like to begin this morales sition while in the hospital. She does not want any additional blood draws to be performed. She is OK with vital signs continuing during the hospitalization. Additionally, she would be ok with his medications staying on board Confirmed she is OK with him continuing to receive antibiotics and she agreed to this. -I completed a POLST form at the bedside with Leticia yesterday indicating DNR/DNI, BATH STEWARD/STEWARDESS, trial abx, no artificial nutrition or hydration. -Palliative Care to assess symptom management needs tomorrow for follow up. patient is comfort measures, but OK to continue medications while here in the hospital. -Case management to continue working on discharge planning. -PPS: 20% (2) Stage IV squamous cell carcinoma of lung: (3) COPD (chronic obstructive pulmonary disease): (4) AMS (altered mental status): (5) Weakness: (6) Chronic diastolic CHF (congestive heart failure): Subjective Patient is more awake today, than yesterday when I saw him. He was able to have a full conversation with me regarding his ROS. He reports generalized abdominal pain, radiating into his back rating it 6/10. Patient currently receiving Oxycodone 10 mg Q 6 PRN Please see A/P for further details. Review of Systems Review of Systems: General: Diffuse generalized abdominal pain reports 6/10, with radiation into his back. HEENT: Pt denies MUKHERJEE, dizziness Resp: Pt reports intermittent SOB CV: Pt denies Chest pain, palpitations GI: Pt reports appetite is ok Skin: No skin changes Psych: (-) depression Physical Exam Constitutional: + ill appearing, + cachectic and + frail appearing Respiratory: normal respiratory effort, lungs clear to auscultation Cardiovascular: Heart Sounds: normal S1, normal S2 and + murmur Extremities: normal capillary refill; no edema Gastrointestinal (Abdomen): normal bowel sounds, soft, nontender, no hepatosplenomegaly Percussion/Palpation: + abdomen tender and + guarding Psychiatric: Insight: + limited insight Judgement: + limited judgement Results & Data Vital Signs (Past 12 Hours) Vital Signs Temp Pulse Resp BP BP Pulse Ox 08/13/19 07:11 36.9 C 88 20 91/53 L 91 08/13/19 04:15 94 08/13/19 03:47 37.1 C 77 20 99/60 L 89 L 08/12/19 23:48 37.0 C 90 20 106/67 92 PG Care Time/CCT Total # of Minutes Spent Total Time Spent with Patient: Total time spent is greater than 50% in coordination of care (as documented) at patient's floor/unit and/or counseling patient: 35 Time Spent Midlevel Total time spent 35 mintues with > 50% of that time spent assessing the patient, discussing goals of care and symptom management needs (1) Stage IV squamous cell carcinoma of lung Laterality: right Qualified Code(s): C34.91 - Malignant neoplasm of unspecified part of right bronchus or lung (2) COPD (chronic obstructive pulmonary disease) COPD type: emphysema Emphysema type: unspecified Qualified Code(s): J43.9 - Emphysema, unspecified (3) AMS (altered mental status) Altered mental status type: unspecified Qualified Code(s): R41.82 - Altered mental status, unspecified
[2019-08-13] MEDS: levoFLOXacin 750 MG TAB PO SCH (11:34)
[2019-08-13] MEDS: PANTOprazole 40 MG TAB PO SCH (16:05)
[2019-08-13] MEDS: ENOXAPARIN INJ 40 MG/0.4 ML SYR SQ SCH (17:55)
[2019-08-13] MEDS ORDERED: Nursing to Pharmacy Communication ONE (18:20)
[2019-08-13] MEDS ORDERED: fentaNYL 25 MCG/HR TDSY TD SCH (19:00)
--- NOTE | 2019-08-13 19:24 | Billing Data ---
Coding Level of Care Code 16894 Subseq Hosp Care Lvl 3
[2019-08-14] MEDS: CHECK FENTANYL PATCH PLACEMENT SCH ×2 (00:10→07:57)
[2019-08-14] MEDS: SODIUM CHLORIDE 0.9% 1000ML 1,000 ML IV SCH (07:57)
[2019-08-14] MEDS: POLYETHYLENE (MIRALAX) 17 GM PACK PO SCH (07:58)
[2019-08-14] MEDS: IPRATROPIUM BROMIDE/ALBUTEROL respimat INH INH SCH ×2 (07:58→12:18)
[2019-08-14] MEDS: BECLOMETHASONE DIP HFA 80 MCG 8.7G INH INH SCH (07:58)
[2019-08-14] MEDS: guaiFENesin 600 MG TABCR PO SCH (07:58)
[2019-08-14] MEDS: SALINE NASAL GEL (AYR) 14.1 GM TUBE SCH (07:59)
[2019-08-14] MEDS: POTASSIUM CHLORIDE PWD 20 MEQ PACK PO SCH (07:59)
[2019-08-14] MEDS: DOCUSATE SODIUM 100 MG CAP PO SCH (08:08)
[2019-08-14] MEDS: OXYCODONE HCL IR 5 MG TAB (IMMEDIATE RELEASE) PO PRN ×3 (08:09→16:01)
--- NOTE | 2019-08-14 10:44 | Discharge Summary ---
Date of Service August 14, 2019 Admission HPI Per Admitting Provider Mr. Shay Hodges is a 74 y/o male with past medical hx of metastatic squamous cell lung ca, COPD, HTN, charcot-tish tooth, who presented to [facility] for CC of Weakness. 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 His was able to help him up and he was without injury from the fall, but was unable to ambulate for significant distance. He denies any injury. He notes over 100 pack year smoking history. He was diagnosed with SCC of Lung about 2 years ago and followed with Dr. Wu. He underwent Radiation treatments x30, a couple rounds of chemo, but then withdrew treatment. His notes that he does not eat or drink and he notes poor appetite "nothing tastes good." He recently saw his PCP Dr. Salas and opted for comfort care measures, but is still wanting treatment with antibiotics, IV fluids, electrolyte replacements, but doesn't want intubation or invasive procedures. He endorses a DNR/DNI status in event of a code. He notes being on 3.5L at home of supplemental oxygen. He currently has a Fentanyl and Nicoderm patch on. He received 1L NSS in ED along with being stared on Levaquin for right midlung and right base opacities with presumed aspiration pneumonia. He also had a Head CT which was without acute process. His labs were remarkable for Hypercalcemia with value of 13.0 requiring inpatient admission status. Principal Diagnosis Hypercalcemia; Stage 4 SCC Lung CA Discharge Exam Constitutional + cachectic, cooperative and comfortable; no acute distress sleeping, easily arousable Eyes PERRL and EOM intact bilaterally ENMT external ear and nose normal, oropharynx normal Neck normal visual inspection and trachea midline Respiratory normal respiratory effort, lungs clear to auscultation no respiratory distress Cardiovascular Rate/Rhythm: regular rate and regular rhythm Heart Sounds: + murmur (systolic) Extremities: no calf tenderness and no edema Gastrointestinal (Abdomen) Inspection/Auscultation: normal bowel sounds Percussion/Palpation: abdomen soft; no guarding and abdomen not rigid Musculoskeletal Head/Neck/Chest: normocephalic and head atraumatic Neurologic moves all extremities and awake Psychiatric A+Ox3, euthymic affect Discharge Data Allergies Allergy/AdvReac Type Severity Reaction Status Date / Time amlodipine AdvReac Intermediate edema Verified 08/09/19 15:07 hydrochlorothiazide AdvReac Intermediate hyponatremi Verified 08/09/19 15:07 a doxycycline AdvReac Mild Nausea and Verified 08/09/19 15:07 abdominal pain Consultations 08/09/19 16:29 ED Decision to Admit Stat 08/09/19 17:50 Consult Case Management - Discharge Planning Routine 08/10/19 09:55 Consult Oncology Routine 08/11/19 08:03 Consult Case Management - Discharge Planning Routine 08/11/19 16:00 Consult Palliative Care Routine Ordered Studies 08/09/19 13:48 CT head/brain wo con Stat Hospital Course (1) Hypercalcemia: Mr. Shay Hodges is a 74 y/o male with past medical hx of metastatic squamous cell lung ca, COPD, HTN, charcot-tish tooth, who was admitted to [facility] for Hypercalcemia and aspiration pneumonia. - Significant improvement of Ca, Treated over weekend with Pamidronate 90 mg IV--effect will take a couple days, but values have progressed from 13 --> 12.6 --> 11 --> 9.5, not factoring corrected calcium, but significant improvement. No recent lab draws per patient wishes. (2) Pneumonia: Treated with a 5 day course of Levaquin (3) Therapeutic opioid-induced constipation (OIC): - continue with home docusate - Miralax BID - We did not carry patient's home Movantik; here was given Methlynaltrexone [place] 12mg SQ q2D scheduled, perhaps will have better volume of distribution since is given SQ than home PO in a patient with chronic constipation and questionable poor GI absorption - Could also consider Dulcolax suppository if no response. - Home Diltiazem discontinued on discharge as contributor to constipation. (4) Supplemental oxygen dependent: Supplemental O2 to maintain 92% Currently on 4L NC (5) Need for comfort care: - Palliative Care consulted to see patient, appreciate recs - Plan is to discharge tohospice care - Patient is a DNR/DNI (6) Stage IV squamous cell carcinoma of lung: - No current treatment - Followed with Dr. Wu in past and was seen here by Oncologist - Cachexic from cancer with poor appetite, Dietary consulted - Palliative Care as above (7) COPD (chronic obstructive pulmonary disease): - Continue with home inhalers - Duonebs PRN (8) Weakness: Multifactorial from poor PO intake and Hypercalcemia (9) Ditoxlp-Tdtab-Engao disease-like deformity of foot: Right foot deformity; with noted chronic ulcerations that are non- infectious (10) History of alcoholism: in remission; no need for AWSS; noted in history (11) DVT prophylaxis: Lovenox 40mg SQ here (12) Hypomagnesemia: - Repleted during stay until decision to forgo further blood draws/ (13) Goals of care, counseling/discussion: Discharge to [facility] Care (14) Chronic generalized abdominal pain: Patient states that his abdominal pain continues and reiterated that he took opioids at home more frequently than here. Increased Oxycodone 10mg po from Q6 hours to Q4 hours for increased frequency. Patient also has Tylenol 500 mg Q 6 PRN and increased Fentanyl patch from 12 mcg to 25 mcg for more long acting control on evening of 08/13. Total Time Total Time Spent Total Time Spent (In Minutes): <30 Total Time Includes: Examination of the Patient, Discharge Planning, Medication Reconciliation and Communication With Other Providers Discharge Plan Discharge Items Patient Disposition: Hospice - Medical Facility Reason For Visit: WEAKNESS, STAGE 4 LUNG CA Discharge Diagnosis: Hypercalcemia, weakness, stage 4 SCC Lung Activity: Per Instructions section Non-emergency contact: Primary Care Provider Call non-emergency contact if: you have any medication questions and your symptoms worsen Follow-up/Referrals: Des Salas MD [Primary Care Provider] - Diet: Regular Addtl Attending Provider Instructions: You were admitted for weakness and a fall. You were found to have elevated levels of Calcium in your blood that was treated with medication and became normal. Per your wishes, you will be discharged to hospice care. Pending Studies at Discharge: No Stand-Alone Forms: My [facility] Skilled Items Patient informed of condition?: Yes DNR: Yes Discharge Level of Care: Other Communicable Disease: No Discharge Prognosis: Stable Lines: None Urinary Catheter: Yes Medications and DC Order Prescriptions: New polyethylene glycol 3350 [Miralax] 17 gram Powder In Packet 17 g PO BID Qty: 0 RF: 0 fentanyl 25 mcg/hr patch 72 hour 1 patch TD Q72H Qty: 5 RF: 0 oxycodone 10 mg tablet 10 mg PO Q4 PRN (Reason: pain) Qty: 30 RF: 0 Continued omeprazole 40 mg capsule,delayed release(DR/EC) 40 mg PO QPM Qty: 90 RF: 3 Qvar RediHaler 80 mcg/actuation HFA aerosol breath activated 2 puffs INH BID Qty: 10.6 RF: 3 Movantik 25 mg tablet 25 mg PO ONCE Qty: 30 RF: 5 enalapril maleate 20 mg tablet 40 mg PO DAILY Qty: 90 RF: 3 Combivent Respimat 20-100 mcg/actuation Mist 1 puff INHALATION QID Qty: 0 RF: 0 guaifenesin [Mucinex] 1,200 mg Tablet Extended Release 12hr 1,200 mg PO BID RF: 0 nicotine [Nicoderm CQ] 14 mg/24 hr Patch 24 Hour 14 mg topical DAILY RF: 0 benzonatate 200 mg Capsule 200 mg PO Q8 PRN (Reason: Cough) RF: 0 docusate sodium 100 mg Capsule 100 mg PO BID RF: 0 [place] Saline Gel [place],Non-Aerosol 1 spray INTRANASAL BID RF: 0 methylnaltrexone 150 mg Tablet 450 mg PO DAILYBB RF: 0 Discontinued diltiazem HCl 120 mg capsule,extended release 24hr 120 mg PO QAM Qty: 90 RF: 3 fentanyl 12 mcg/hr patch 72 hour 1 patch TD Q72H Qty: 2 RF: 0 oxycodone 10 mg tablet 10 mg PO Q6H PRN (Reason: pain) Qty: 90 RF: 0 acetaminophen 500 mg capsule 500 mg PO Q6H PRN (Reason: Pain) RF: 0 cholecalciferol (vitamin D3) [Vitamin D3] 2,000 unit Capsule 2,000 unit PO HS RF: 0 atorvastatin 40 mg tablet 40 mg PO HS RF: 0 potassium chloride [Klor-Con] 20 mEq packet 20 meq PO QAM RF: 0 Discharge Orders: Discharge Order (Routine); Ordered 08/14/19 Ordered By: Eddie Gao Admission Data Admit Date/Time: 08/09/19 17:50 Attending Provider: Balwinder Christiansen Admit Provider: Eddie Gao Primary Care Provider: Des Salas Other Providers: Khang Marin ; Danny Wu V ; Eugenia Dockery Other Interventions: Discharge Summary Assessment (RN) Last Done: 08/14/19 11:32 DC Date/Time DO NOT enter until pt leaves facility: 08/14/19 16:15 Supervising Physician Co-Signing Physician Notes I personally examined the patient and verified all ramírez points of history and exam, discussed case, and agree with decision making with Dr gao. feeling ok to go to snf. no acute complaints today. Vitals noted, in general he is awake and alert pleasant appears quite fatigued. HEENT normocephalic atraumatic mucous membranes are moist. Breathing unlabored no accessory muscle use good effort. Skin shows no rashes no pallor or icterus. Impression Hypercalcemia, secondary to malignancy Pneumonia - presumed to be aspiration Lung cancer, Squamous cell chronic hypoxic respiratory failure Cachexia of malignancy (severe protein calorie malnutrition) Opioid-induced constipation HTN Plan finish course of levaquin movantik and miralax (escalate miralax as needed to help w BM) fentanyl patch q72hrs, oxycodone to q4hr prn; await to get caregiver card for trial of cannabis for pain relief lovenox DVT proph utilized while inpt stable for transfer to SNF/hospice Resident Activity Tracking Resident Involvement: Resident Care Provided Care Provided: Adult Hospital Medicine
[2019-08-14] MEDS: levoFLOXacin 750 MG TAB PO SCH (12:16)
--- NOTE | 2019-08-14 17:18 | Billing Data ---
Coding Level of Care Code D/C Day Management <30 mins
== END 2019-08-14 16:15 | disposition hospice, inpatient (51) | DRG 640 ==
LOC: ED 12:18 → SUATTDRO 17:50 → 2W 17:50 → 4W 22:57